=== PATIENT | male | born 1940 | race Caucasian/White ===

== ENCOUNTER 2016-11-22 19:43 | Emergency (ER) | payer MEDICARE, OTHER ==
[2016-11-22] MEDS ORDERED: SODIUM CHLORIDE 0.9% 1,000 ML IV STA (19:50)
--- NOTE | 2016-11-22 19:55 | ED ---
General Adult HPI - General Chief complaint: Chest Pain Stated complaint: chest & back pain Time Seen by Provider: 11/22/16 19:50 Source: patient, family, RN notes reviewed, old records reviewed Mode of arrival: ambulatory Limitations: no limitations - History of Present Illness Initial comments: This is a 76-year-old male VF reevaluation chest pain. Patient has central chest pain rating to his back assurance of breath. Patient has significant history of high blood pressure cholesterol and CVA. Patient does admit to shortness of breath no fevers cough or congestion. - Related Data Home Medications Medication Instructions Recorded Confirmed Cholecalciferol [Vitamin D3] 4,000 unit PO DAILY 05/10/16 11/22/16 Doxazosin [Cardura] 1 mg PO HS 05/10/16 11/22/16 Lisinopril [Zestril] 1.25 mg PO W/SUPPER 05/10/16 11/22/16 metFORMIN HCL [Glucophage Xr] 1,500 mg PO W/SUPPER 05/10/16 11/22/16 Pravastatin Sodium [Pravachol] 10 mg PO HS 11/22/16 11/22/16 Allergies Allergy/AdvReac Type Severity Reaction Status Date / Time No Known Allergies Allergy Verified 11/22/16 20:48 Review of Systems ROS Statement: Those systems with pertinent positive or pertinent negative responses have been documented in the HPI. ROS Other: All systems not noted in ROS Statement are negative. Past Medical History Past Medical History: Cancer, Diabetes Mellitus Additional Past Medical History / Comment(s): Gall stones,Enlarged prostate, basal cell carcinoma top of head History of Any Multi-Drug Resistant Organisms: None Reported Past Surgical History: Orthopedic Surgery Additional Past Surgical History / Comment(s): nicole carpel tunnel,heel spur, basal cell removed from scalp, back sx, choley Past Anesthesia/Blood Transfusion Reactions: No Reported Reaction Past Psychological History: No Psychological Hx Reported Smoking Status: Former smoker Past Alcohol Use History: Occasional Additional Past Alcohol Use History / Comment(s): quit smoking ,smoked for approx 30yrs 1ppd Past Drug Use History: None Reported - Past Family History Father History Unknown: Yes Mother Family Medical History: Diabetes Mellitus General Exam Limitations: no limitations General appearance: alert, in no apparent distress Head exam: Present: atraumatic, normocephalic, normal inspection Eye exam: Present: normal appearance, PERRL, EOMI. Absent: scleral icterus, conjunctival injection, periorbital swelling ENT exam: Present: normal exam, mucous membranes moist Neck exam: Present: normal inspection. Absent: tenderness, meningismus, lymphadenopathy Respiratory exam: Present: normal lung sounds bilaterally. Absent: respiratory distress, wheezes, rales, rhonchi, stridor Cardiovascular Exam: Present: regular rate, normal rhythm, normal heart sounds. Absent: systolic murmur, diastolic murmur, rubs, gallop, clicks GI/Abdominal exam: Present: soft, normal bowel sounds. Absent: distended, tenderness, guarding, rebound, rigid Extremities exam: Present: normal inspection, full ROM, normal capillary refill. Absent: tenderness, pedal edema, joint swelling, calf tenderness Back exam: Present: normal inspection Neurological exam: Present: alert, oriented X3, CN II-XII intact Psychiatric exam: Present: normal affect, normal mood Skin exam: Present: warm, dry, intact, normal color. Absent: rash Course Vital Signs 11/22/16 19:45 Temperature 97 F L Pulse Rate 66 Respiratory 20 Rate Blood Pressure 194/83 O2 Sat by Pulse 97 Oximetry - Reevaluation(s) Reevaluation #1: 11/22/16 22:20 Patient at this time and throughout hospital stay has remained without pain EKG Findings - EKG Comments: EKG Findings:: EKG shows normal sinus rhythm at 60, [place] 178, QRS 80, QTC 408 Medical Decision Making - Medical Decision Making 70s and LDL chest pain, chest pressure that occurred after eating. This happened twice today, once when he woke up and then later on in the afternoon. Patient without pain throughout entire hospital stay EKG chest x-ray CTA and heart enzymes are all negative. Patient spoke at length regarding to understand the hospital and states that he would like to be discharged home. Again patient has no complaints of pain with - Lab Data Result diagrams: 11/22/16 20:00 11/22/16 20:00 Lab Results 11/22/16 11/22/16 11/22/16 Range/Units 20:00 20:00 20:00 WBC 7.4 (3.8-10.6) k/uL RBC 4.11 L (4.30-5.90) m/uL Hgb 14.0 (13.0-17.5) gm/dL Hct 42.9 (39.0-53.0) % MCV 104.3 H (80.0-100.0) fL MCH 34.0 (25.0-35.0) pg MCHC 32.6 (31.0-37.0) g/dL RDW 18.2 H (11.5-15.5) % Plt Count 236 (150-450) k/uL Neutrophils % (Manual) 60.0 % Lymphocytes % (Manual) 31.0 % Monocytes % (Manual) 5.0 % Eosinophils % (Manual) 4.0 % Neutrophils # (Manual) 4.4 (1.3-7.7) k/uL Lymphocytes # (Manual) 2.3 (1.0-4.8) k/uL Monocytes # (Manual) 0.4 (0-1.0) k/uL Eosinophils # (Manual) 0.3 (0-0.7) k/uL Nucleated RBCs 0 (0-0) /100 WBC Manual Slide Review Performed Large Platelets Present Polychromasia Present Hypochromasia Slight Anisocytosis Slight Macrocytosis Moderate PT (9.0-12.0) sec INR (<1.1) APTT (22.0-30.0) sec D-Dimer (<0.60) mg/L FEU Sodium 139 (137-145) mmol/L Potassium 4.5 (3.5-5.1) mmol/L Chloride 106 (98-107) mmol/L Carbon Dioxide 24 (22-30) mmol/L Anion Gap 9 mmol/L BUN 15 (9-20) mg/dL Creatinine 0.75 (0.66-1.25) mg/dL Est GFR (MDRD) Af Amer >60 (>60 ml/min/1.73 sqM) Est GFR (MDRD) Non-Af >60 (>60 ml/min/1.73 sqM) Glucose 159 H (74-99) mg/dL Calcium 9.6 (8.4-10.2) mg/dL Magnesium 2.0 (1.6-2.3) mg/dL Total Bilirubin 0.7 (0.2-1.3) mg/dL AST 32 (17-59) U/L ALT 33 (21-72) U/L Alkaline Phosphatase 46 (38-126) U/L Total Creatine Kinase 89 (55-170) U/L CK-MB (CK-2) 1.7 (0.0-2.4) ng/mL CK-MB (CK-2) Rel Index 1.9 Troponin I <0.012 (0.000-0.034) ng/mL NT-Pro-B Natriuret Pep pg/mL Total Protein 7.1 (6.3-8.2) g/dL Albumin 4.3 (3.5-5.0) g/dL Lipase 74 (23-300) U/L 11/22/16 11/22/16 Range/Units 20:00 20:00 WBC (3.8-10.6) k/uL RBC (4.30-5.90) m/uL Hgb (13.0-17.5) gm/dL Hct (39.0-53.0) % MCV (80.0-100.0) fL MCH (25.0-35.0) pg MCHC (31.0-37.0) g/dL RDW (11.5-15.5) % Plt Count (150-450) k/uL Neutrophils % (Manual) % Lymphocytes % (Manual) % Monocytes % (Manual) % Eosinophils % (Manual) % Neutrophils # (Manual) (1.3-7.7) k/uL Lymphocytes # (Manual) (1.0-4.8) k/uL Monocytes # (Manual) (0-1.0) k/uL Eosinophils # (Manual) (0-0.7) k/uL Nucleated RBCs (0-0) /100 WBC Manual Slide Review Large Platelets Polychromasia Hypochromasia Anisocytosis Macrocytosis PT 9.9 (9.0-12.0) sec INR 1.0 (<1.1) APTT 24.3 (22.0-30.0) sec D-Dimer 0.38 (<0.60) mg/L FEU Sodium (137-145) mmol/L Potassium (3.5-5.1) mmol/L Chloride (98-107) mmol/L Carbon Dioxide (22-30) mmol/L Anion Gap mmol/L BUN (9-20) mg/dL Creatinine (0.66-1.25) mg/dL Est GFR (MDRD) Af Amer (>60 ml/min/1.73 sqM) Est GFR (MDRD) Non-Af (>60 ml/min/1.73 sqM) Glucose (74-99) mg/dL Calcium (8.4-10.2) mg/dL Magnesium (1.6-2.3) mg/dL Total Bilirubin (0.2-1.3) mg/dL AST (17-59) U/L ALT (21-72) U/L Alkaline Phosphatase (38-126) U/L Total Creatine Kinase (55-170) U/L CK-MB (CK-2) (0.0-2.4) ng/mL CK-MB (CK-2) Rel Index Troponin I (0.000-0.034) ng/mL NT-Pro-B Natriuret Pep 348 pg/mL Total Protein (6.3-8.2) g/dL Albumin (3.5-5.0) g/dL Lipase (23-300) U/L - Radiology Data Radiology results: report reviewed (Chest x-ray and CT negative for acute disease), image reviewed Disposition Clinical Impression: Atypical chest pain Disposition: HOME SELF-CARE Condition: Good Instructions: Chest Pain (ED) Referrals: Dayana Holguin MD [Primary Care Provider] - 1-2 days
[2016-11-22 20:18] LABS: Anisocytosis Slight; CH 34.3; HCT 42.9 % (39.0-53.0); HDW 3.34; Hypochromasia Slight; MCHC 32.6 g/dL (31.0-37.0); MCV 104.3 fL (80.0-100.0); Macrocytosis Moderate; RBC 4.11 m/uL (4.30-5.90); RDW 18.2 % (11.5-15.5); WBC 7.4 k/uL (3.8-10.6); WBC (Perox) 7.42
[2016-11-22 20:28] LABS: ALT 33 U/L (21-72); AST 32 U/L (17-59); Alkaline Phosphatase 46 U/L (38-126); Anion Gap 9 mmol/L; Blood Urea Nitrogen 15 mg/dL (9-20); Calcium 9.6 mg/dL (8.4-10.2); Carbon Dioxide 24 mmol/L (22-30); Chloride 106 mmol/L (98-107); Glucose 159 mg/dL (74-99); Non-African American GFR(MDRD) >60 (>60 ml/min/1.73 sqM); Potassium 4.5 mmol/L (3.5-5.1); Sodium 139 mmol/L (137-145); Total Bilirubin 0.7 mg/dL (0.2-1.3); Total Protein 7.1 g/dL (6.3-8.2)
[2016-11-22 20:30] LABS: Partial Thromboplastin Time 24.3 sec (22.0-30.0); Prothrombin Time 9.9 sec (9.0-12.0)
[2016-11-22 20:39] LABS: Creatine Kinase 89 U/L (55-170)
--- NOTE | 2016-11-22 20:44 | XR ---
EXAMINATION TYPE: XR chest 2V DATE OF EXAM: 11/22/2016 8:35 PM HISTORY: Shortness of breath. COMPARISON: 08/08/2013 TECHNIQUE: Single view of the chest is submitted. FINDINGS: Demonstrated are scattered senescent parenchymal change. There is no evidence for focal infiltrate. The heart is stable. Hilar and mediastinal structures are within normal limits. Degenerative changes are seen of the dorsal spine. IMPRESSION: 1. Chronic changes without evidence for acute pulmonary disease.
[2016-11-22 20:46] LABS: Add Differential Manual Differential
[2016-11-22 20:48] LABS: Nucleated Red Blood Cells 0 /100 WBC (0-0); Total Cells Counted 100
[2016-11-22 20:49] LABS: Large Platelets Present; Manual Review Performed; Polychromasia Present
[2016-11-22 20:50] LABS: Creatine Kinase MB 1.7 ng/mL (0.0-2.4); Troponin I <0.012 ng/mL (0.000-0.034)
[2016-11-22] MEDS ORDERED: RX INFO: IV CONTRAST WAS GIVEN 1 EACH MISC MISCELLANE PRN (21:28)
--- NOTE | 2016-11-22 22:00 | CT ---
EXAMINATION TYPE: CT angio chest DATE OF EXAM: 11/22/2016 9:54 PM COMPARISON: NONE HISTORY: Chest and upper back pain CT DLP: 483 mGycm CONTRAST: CT chest with contrast and 3D reconstruction with MIP imaging is performed with IV Contrast, patient injected with 100 mL of Omnipaque 350. Contrast-enhanced CT of the chest was performed through the course of the pulmonary arteries with og g and mediastinal window settings submitted. 3D reconstruction with MIP imaging was also performed. PULMONARY ARTERIES: The pulmonary arteries and their major tributaries are patent. I do not see atiya dence for sizable filling defect to suggest pulmonary embolic process. LUNGS: The lungs are clear and free of infiltrate. No evidence for atelectasis. No pulmonary nodule or mass is detected. No pleural effusion. MEDIASTINUM: Thoracic aorta is of normal caliber . The heart is not enlarged. No evidence for media stinal mass. No mediastinal lymph nodes greater than 1cm. HILAR STRUCTURES: No evidence for mass. No hilar lymph nodes greater than 1 cm. UPPER ABDOMEN: No significant abnormality is seen. IMPRESSION: 1. No evidence for Pulmonary embolism at this time.
[2016-11-22 22:45] VITALS: PULSE 62; RESP 18
[2016-11-22 23:11] VITALS: BP 162/79; TEMP 98.8
== END 2016-11-22 23:00 | disposition home or self-care (01) ==
LOC: EC 19:43
DX: M79.89 Other specified soft tissue disorders (principal); R06.02 Shortness of breath; E11.9 Type 2 diabetes mellitus without complications; Z85.828 Personal history of other malignant neoplasm of skin; Z87.891 Personal history of nicotine dependence; Z79.84 Long term (current) use of oral hypoglycemic drugs; Z79.899 Other long term (current) drug therapy
CPT/HCPCS: 36415; 93005; 85379; 83880; 80053; 82550; 82553; 83690; 83735; 84484; 85025; 85610; 85730; 71020; 71275; 99285; Q9967

== ENCOUNTER → 2016-12-05 | Outpatient (CLI) | payer MEDICARE, OTHER ==
--- NOTE | 2016-12-05 17:41 | US ---
EXAMINATION TYPE: US carotid duplex BILAT DATE OF EXAM: 12/05/2016 3:06 PM COMPARISON: NONE CLINICAL HISTORY: K22.4 ESOPH SPASM,R09.89 CAROTID BRUIT,E66.9 OBESITY,I10 HTN. No HTN. No history o f TIA EXAM MEASUREMENTS: RIGHT: Peak Systolic Velocity (PSV) cm/sec ----- Right CCA: 57.2 ----- Right ICA: 136.6 ----- Right ECA: 206.0 ICA/CCA ratio: 2.4 RIGHT: End Diastole cm/sec ----- Right CCA: 14.5 ----- Right ICA: 23.6 ----- Right ECA: 38.7 LEFT: Peak Systolic Velocity (PSV) cm/sec ----- Left CCA: 162.5 ----- Left ICA: 148.9 ----- Left ECA: 321.6 ICA/CCA ratio: 0.9 LEFT: End Diastole cm/sec ----- Left CCA: 36.5 ----- Left ICA: 36.6 ----- Left ECA: 22.2 VERTEBRALS (direction of flow): Right Vertebral: Antegrade Left Vertebral: Retrograde Plaque seen in bilateral bulbs, CCA and extending into the ICA and ECA. Elevated velocities in right Prox ICA and right ECA. Elevated velocities in seen in left CCA, ICA and ECA. Bilateral wall thick ening. Significant stenosis seen in right CCA. IMPRESSION: 1. Bilateral plaque as noted above. 2. 50-69% stenosis right ICA. 3. No hemodynamically significant stenosis left internal carotid artery. Criteria for Assigning % of Stenosis / Diameter reduction (Estimation based on the indirect measurements of the internal carotid artery velocities (ICA PSV). 1. Normal (no stenosis)=ICA PSV < 125 cm/s: ratio < 2.0: ICA EDV<40 cm/s. 2. Less than 50% stenosis=ICA PSV < 125 cm/s: ratio < 2.0: ICA EDV<40 cm/s. 3. 50 to 69% stenosis=ICA PSV of 125 to 230 cm/s: ration 2.0 ? 4.0: ICA EDV 40-100 cm/s. 4. Greater than 70% stenosis to near occlusion= ICA PSV > 230 cm/s: ratio > 4.0: ICA EDV > 100 cm/s. 5. Near occlusion= ICA PSV velocities may be low or undetectable: variable ratio and ICA EDV. 6. Total occlusion=unable to detect flow.
== END | disposition home or self-care (01) ==
LOC: RADUSWWP 14:16
PROVIDERS: ATTEND Family Medicine
DX: I65.23 Occlusion and stenosis of bilateral carotid arteries (principal); K22.4 Dyskinesia of esophagus; I10 Essential (primary) hypertension; E11.9 Type 2 diabetes mellitus without complications; E66.9 Obesity, unspecified; Z68.30 Body mass index [BMI] 30.0-30.9, adult
CPT/HCPCS: 93880

== ENCOUNTER → 2017-11-27 | Outpatient (CLI) | payer MEDICARE, OTHER ==
--- NOTE | 2017-11-28 08:23 | US ---
EXAMINATION TYPE: US carotid duplex BILAT DATE OF EXAM: 11/27/2017 COMPARISON: US 2017 CLINICAL HISTORY: I65.21 Occlusion and stenosis right carotid artery. Follow up EXAM MEASUREMENTS: RIGHT: Peak Systolic Velocity (PSV) cm/sec ----- Right CCA: 46.0 ----- Right ICA: 151.7 ----- Right ECA: 144.7 ICA/CCA ratio: 3.3 RIGHT: End Diastole cm/sec ----- Right CCA: 11.1 ----- Right ICA: 32.0 ----- Right ECA: 17.1 LEFT: Peak Systolic Velocity (PSV) cm/sec ----- Left CCA: 110.7 ----- Left ICA: 120.5 ----- Left ECA: 92.5 ICA/CCA ratio: 1.1 LEFT: End Diastole cm/sec ----- Left CCA: 23.4 ----- Left ICA: 34.7 ----- Left ECA: 0.0 VERTEBRALS (direction of flow): Right Vertebral: Antegrade Left Vertebral: Retrograde, to and fro flow Rhythm: Normal Bilateral intimal thickening, plaque throughout bilateral carotids, elevated velocities: right proxim al ICA and right mid ECA, right ICA/CCA ratio 3.3 = 50 to 69% stenosis. IMPRESSION: 1. Atheromatous plaquing present bilaterally. Based on velocities the right internal carotid artery h as an estimated stenosis between 50 and 69%. Stenosis of the left internal carotid artery is approach ing 50%. 2. There is some to and fro motion within the left vertebral artery flow. Some retrograde flow was do cumented. Criteria for Assigning % of Stenosis / Diameter reduction (Estimation based on the indirect measurements of the internal carotid artery velocities (ICA PSV). 1. Normal (no stenosis)=ICA PSV < 125 cm/s: ratio < 2.0: ICA EDV<40 cm/s. 2. Less than 50% stenosis=ICA PSV < 125 cm/s: ratio < 2.0: ICA EDV<40 cm/s. 3. 50 to 69% stenosis=ICA PSV of 125 to 230 cm/s: ration 2.0 ? 4.0: ICA EDV 40-100 cm/s. 4. Greater than 70% stenosis to near occlusion= ICA PSV > 230 cm/s: ratio > 4.0: ICA EDV > 100 cm/s. 5. Near occlusion= ICA PSV velocities may be low or undetectable: variable ratio and ICA EDV. 6. Total occlusion=unable to detect flow.
== END | disposition home or self-care (01) ==
LOC: RADUSWWP 15:54
PROVIDERS: ATTEND Family Medicine
DX: I65.23 Occlusion and stenosis of bilateral carotid arteries (principal)
CPT/HCPCS: 93880

== ENCOUNTER 2018-03-25 15:50 | Emergency (ER) | payer MEDICARE, OTHER ==
[2018-03-25] MEDS ORDERED: ONDANSETRON 4 MG/2 ML VIAL IVP STA (16:10)
[2018-03-25] MEDS ORDERED: MORPHINE SULFATE 4 MG/ML SYRINGE IV STA ×2 (16:10→18:36)
[2018-03-25] MEDS ORDERED: SODIUM CHLORIDE 0.9% 500 ML IV STA (16:12)
[2018-03-25] MEDS ORDERED: SODIUM CHLORIDE 0.9% 1,000 ML IV STA (16:13)
--- NOTE | 2018-03-25 16:17 | ED ---
Abdominal Pain HPI - General Chief Complaint: Abdominal Pain Stated Complaint: back & abdominal pain Time Seen by Provider: 03/25/18 16:04 Source: patient Mode of arrival: wheelchair Limitations: no limitations - History of Present Illness Initial Comments: This 78-year-old white male presents with a complaint of some left flank pain which came on at approximately 10 AM today. He also is having some pain in the suprapubic region. He states that the pain is fairly severe in nature. He has had some nausea but no vomiting diarrhea constipation. He denies any fevers or chills. He states that he does have some hesitancy with urination which is essentially normal for him due to his benign prostatic hypertrophy. He does refuse any frequency urgency dysuria or hematuria. He does have a history of kidney stones remotely and this feels somewhat similar. He tried some Zantac without any relief. No other complaints or modifying factors. - Related Data Home Medications Medication Instructions Recorded Confirmed Cholecalciferol [Vitamin D3] 4,000 unit PO HS 05/10/16 03/25/18 Doxazosin [Cardura] 1 mg PO HS 05/10/16 03/25/18 Lisinopril [Zestril] 1.25 mg PO W/SUPPER 05/10/16 03/25/18 metFORMIN HCL [Glucophage Xr] 1,500 mg PO W/SUPPER 05/10/16 03/25/18 Pravastatin Sodium [Pravachol] 10 mg PO HS 11/22/16 03/25/18 Previous Rx's Medication Instructions Recorded Hydrocodone/Acetaminophen [Clyde 1 - 2 each PO Q4HR PRN #20 tab 03/25/18 5-325] Ondansetron [Zofran ODT] 8 mg PO Q8HR PRN #12 tab 03/25/18 Allergies Allergy/AdvReac Type Severity Reaction Status Date / Time No Known Allergies Allergy Verified 03/25/18 16:27 Review of Systems ROS Statement: Those systems with pertinent positive or pertinent negative responses have been documented in the HPI. ROS Other: All systems not noted in ROS Statement are negative. Past Medical History Past Medical History: Cancer, Diabetes Mellitus Additional Past Medical History / Comment(s): Gall stones,Enlarged prostate, basal cell carcinoma top of head History of Any Multi-Drug Resistant Organisms: None Reported Past Surgical History: Orthopedic Surgery Additional Past Surgical History / Comment(s): nicole carpel tunnel,heel spur, basal cell removed from scalp, back sx, choley Past Anesthesia/Blood Transfusion Reactions: No Reported Reaction Past Psychological History: No Psychological Hx Reported Smoking Status: Former smoker Past Alcohol Use History: Occasional Past Drug Use History: None Reported - Past Family History Father History Unknown: Yes Mother Family Medical History: Diabetes Mellitus General Exam - General Exam Comments Initial Comments: GENERAL: The patient is well nourished and well hydrated. VITAL SIGNS: Heart rate, blood pressure, respiratory rate reviewed as recorded in nurse's notes. EYES: Pupils are round and reactive. Extraocular movements are intact. No conjunctival / lid redness or swelling. ENT: No external evidence of injury, swelling, or ecchymosis. Airway is patent. Throat is clear. NECK: Nontender. No swelling or evidence of injury. No subcutaneous emphysema. Trachea is midline. No thyroid mass. HEART: Regular rate and rhythm. Good peripheral pulses. LUNGS/CHEST: Breath sounds clear and equal bilaterally. No rales, rhonchi, or wheezes. No ecchymosis, subcutaneous emphysema, or tenderness. ABDOMEN: There is some tenderness noted into the left flank region primarily. There is mild tenderness into the suprapubic area. There is no abdominal distention. No palpable masses or organomegaly. No peritoneal signs. No abdominal wall swelling or ecchymosis. EXTREMITIES: No extremity tenderness. Normal muscle tone and function. No thoracolumbar tenderness. NEUROLOGIC: Sensation is grossly intact. Cranial nerve exam reveals face is symmetrical, tongue is midline, speech is clear. SKIN: No abrasions or ecchymosis is noted. No induration or masses noted. PSYCHIATRIC: Alert and oriented. Appropriate behavior and judgment. Limitations: no limitations Course Vital Signs 03/25/18 03/25/18 03/25/18 15:53 16:55 17:21 Temperature 97.4 F L Pulse Rate 66 71 65 Respiratory 22 18 18 Rate Blood Pressure 144/69 174/83 153/65 O2 Sat by Pulse 98 96 98 Oximetry Medical Decision Making - Medical Decision Making The patient was seen and examined. All diagnostics are reviewed. He does have an IV established and received some fluid hydration. The receives for morphine and 8 of Zofran intravenously. The urinalysis and laboratory analysis are essentially unremarkable. The computed tomography scan of the abdomen and pelvis does show 5 mm left proximal ureteral stone with hydronephrosis. There is additional stones in the left kidney. The patient is feeling improved on recheck. He is still in a degree of pain and will be given additional morphine. This felt as though he stable for outpatient treatment. He was informed that his prostate is enlarged as well but he states that he was aware of this. He's never followed up with urology and he will be given the number to Dr. Almendarez so that he can follow-up in regards to his prostate as well as the kidney stones. - Lab Data Result diagrams: 03/25/18 16:46 03/25/18 16:46 Lab Results 03/25/18 03/25/18 03/25/18 Range/Units 16:46 16:46 16:46 WBC 11.3 H (3.8-10.6) k/uL RBC 4.21 L (4.30-5.90) m/uL Hgb 13.6 (13.0-17.5) gm/dL Hct 42.6 (39.0-53.0) % MCV 101.2 H (80.0-100.0) fL MCH 32.3 (25.0-35.0) pg MCHC 31.9 (31.0-37.0) g/dL RDW 17.7 H (11.5-15.5) % Plt Count 242 (150-450) k/uL Neutrophils % 77 % Lymphocytes % 14 % Monocytes % 5 % Eosinophils % 1 % Basophils % 1 % Neutrophils # 8.8 H (1.3-7.7) k/uL Lymphocytes # 1.6 (1.0-4.8) k/uL Monocytes # 0.6 (0-1.0) k/uL Eosinophils # 0.1 (0-0.7) k/uL Basophils # 0.1 (0-0.2) k/uL Anisocytosis Slight Macrocytosis Slight PT 9.6 (9.0-12.0) sec INR 1.0 (<1.2) APTT 23.5 (22.0-30.0) sec Sodium 139 (137-145) mmol/L Potassium 4.5 (3.5-5.1) mmol/L Chloride 107 (98-107) mmol/L Carbon Dioxide 23 (22-30) mmol/L Anion Gap 9 mmol/L BUN 18 (9-20) mg/dL Creatinine 0.81 (0.66-1.25) mg/dL Est GFR (CKD-EPI)AfAm >90 (>60 ml/min/1.73 sqM) Est GFR (CKD-EPI)NonAf 85 (>60 ml/min/1.73 sqM) Glucose 161 H (74-99) mg/dL Calcium 9.5 (8.4-10.2) mg/dL Total Bilirubin 0.8 (0.2-1.3) mg/dL AST 29 (17-59) U/L ALT 42 (21-72) U/L Alkaline Phosphatase 47 (38-126) U/L Total Protein 6.6 (6.3-8.2) g/dL Albumin 4.3 (3.5-5.0) g/dL Urine Color Urine Appearance (Clear) Urine pH (5.0-8.0) Ur Specific [place] (1.001-1.035) Urine Protein (Negative) Urine Glucose (UA) (Negative) Urine Ketones (Negative) Urine Blood (Negative) Urine Nitrite (Negative) Urine Bilirubin (Negative) Urine Urobilinogen (<2.0) mg/dL Ur Leukocyte Esterase (Negative) Urine WBC (0-5) /hpf Ur Squamous Epith Cells (0-4) /hpf Amorphous Sediment (None) /hpf Urine Mucus (None) /hpf 03/25/18 Range/Units 17:21 WBC (3.8-10.6) k/uL RBC (4.30-5.90) m/uL Hgb (13.0-17.5) gm/dL Hct (39.0-53.0) % MCV (80.0-100.0) fL MCH (25.0-35.0) pg MCHC (31.0-37.0) g/dL RDW (11.5-15.5) % Plt Count (150-450) k/uL Neutrophils % % Lymphocytes % % Monocytes % % Eosinophils % % Basophils % % Neutrophils # (1.3-7.7) k/uL Lymphocytes # (1.0-4.8) k/uL Monocytes # (0-1.0) k/uL Eosinophils # (0-0.7) k/uL Basophils # (0-0.2) k/uL Anisocytosis Macrocytosis PT (9.0-12.0) sec INR (<1.2) APTT (22.0-30.0) sec Sodium (137-145) mmol/L Potassium (3.5-5.1) mmol/L Chloride (98-107) mmol/L Carbon Dioxide (22-30) mmol/L Anion Gap mmol/L BUN (9-20) mg/dL Creatinine (0.66-1.25) mg/dL Est GFR (CKD-EPI)AfAm (>60 ml/min/1.73 sqM) Est GFR (CKD-EPI)NonAf (>60 ml/min/1.73 sqM) Glucose (74-99) mg/dL Calcium (8.4-10.2) mg/dL Total Bilirubin (0.2-1.3) mg/dL AST (17-59) U/L ALT (21-72) U/L Alkaline Phosphatase (38-126) U/L Total Protein (6.3-8.2) g/dL Albumin (3.5-5.0) g/dL Urine Color Light Yellow Urine Appearance Clear (Clear) Urine pH 5.0 (5.0-8.0) Ur Specific [place] 1.010 (1.001-1.035) Urine Protein Negative (Negative) Urine Glucose (UA) Negative (Negative) Urine Ketones 1+ H (Negative) Urine Blood Trace H (Negative) Urine Nitrite Negative (Negative) Urine Bilirubin Negative (Negative) Urine Urobilinogen <2.0 (<2.0) mg/dL Ur Leukocyte Esterase Negative (Negative) Urine WBC <1 (0-5) /hpf Ur Squamous Epith Cells 1 (0-4) /hpf Amorphous Sediment Rare H (None) /hpf Urine Mucus Rare H (None) /hpf Disposition Clinical Impression: Abdominal pain, Left flank pain, Nausea, Left ureteral stone, Hypertension, Hydronephrosis, left, Prostatic hypertrophy Disposition: HOME SELF-CARE Condition: Good Instructions: Kidney Stones (ED), Hypertension (ED), Benign Prostatic Hypertrophy (ED) Prescriptions: Hydrocodone/Acetaminophen [Clyde 5-325] 1 - 2 each PO Q4HR PRN #20 tab PRN Reason: Pain Ondansetron [Zofran ODT] 8 mg PO Q8HR PRN #12 tab PRN Reason: Nausea Is patient prescribed a controlled substance at d/c from ED?: Yes When asked, does pt state using other controlled substances?: No If prescribed controlled substance>3 days was MAPS reviewed?: Prescribed <3 Days Referrals: Dayana Holguin MD [Primary Care Provider] - 1-2 days Arun Almendarez MD [STAFF PHYSICIAN] - As Soon As Possible Time of Disposition: 18:30
[2018-03-25 16:57] VITALS: RESP 18
[2018-03-25 17:07] LABS: Anisocytosis Slight; Basophils # (A) 0.1 k/uL (0-0.2); Basophils % (A) 1 %; Eosinophils # (A) 0.1 k/uL (0-0.7); Eosinophils % (A) 1 %; HCT 42.6 % (39.0-53.0); HGB 13.6 gm/dL (13.0-17.5); Lymphocytes # (A) 1.6 k/uL (1.0-4.8); Lymphocytes % (A) 14 %; MCH 32.3 pg (25.0-35.0); MCHC 31.9 g/dL (31.0-37.0); MCV 101.2 fL (80.0-100.0); Macrocytosis Slight; Mean Platelet Volume 8.6; Monocytes # (A) 0.6 k/uL (0-1.0); Monocytes % (A) 5 %; Neutrophils # (A) 8.8 k/uL (1.3-7.7); Neutrophils % (A) 77 %; Platelet Count 242 k/uL (150-450); RBC 4.21 m/uL (4.30-5.90); RDW 17.7 % (11.5-15.5); WBC 11.3 k/uL (3.8-10.6)
[2018-03-25 17:14] LABS: Partial Thromboplastin Time 23.5 sec (22.0-30.0); Prothrombin Time 9.6 sec (9.0-12.0)
[2018-03-25 17:16] LABS: ALT 42 U/L (21-72); AST 29 U/L (17-59); Albumin 4.3 g/dL (3.5-5.0); Alkaline Phosphatase 47 U/L (38-126); Anion Gap 9 mmol/L; Blood Urea Nitrogen 18 mg/dL (9-20); Calcium 9.5 mg/dL (8.4-10.2); Carbon Dioxide 23 mmol/L (22-30); Chloride 107 mmol/L (98-107); Glucose 161 mg/dL (74-99); Potassium 4.5 mmol/L (3.5-5.1); Sodium 139 mmol/L (137-145); Total Bilirubin 0.8 mg/dL (0.2-1.3); Total Protein 6.6 g/dL (6.3-8.2)
--- NOTE | 2018-03-25 18:03 | CT ---
EXAMINATION TYPE: CT abdomen pelvis wo con DATE OF EXAM: 03/25/2018 COMPARISON: None HISTORY: Lower back/abdominal pain CT DLP: 689.5 mGycm Automated exposure control for dose reduction was used. TECHNIQUE: Helical acquisition of images was performed from the lung bases through the pelvis. FINDINGS: There is some subsegmental atelectasis at the posterior lung bases. There is no pleural effusion. Liver shows no focal defect. There are clips from cholecystectomy. Spleen appears normal. There is no pancreatic mass. There is no adrenal mass. Kidneys of normal size and contour. There is left-sided hydronephrosis. The re is 5 mm calculus in the proximal left ureter. There is left-sided perinephric edema. There is no h ydronephrosis on the right side. There are is tiny calculi in the posterior left kidney. The right ki dney shows no calculi. Abdominal aorta is atheromatous. There is no retroperitoneal adenopathy. Appen petar appears normal. There is no ascites. Bladder distends smoothly. There is calcification in the dependent urinary bladd er. There is prosthetic calcification. Prostate is enlarged and measures 6.1 cm. There is no pelvic l ymphadenopathy. There are spondylotic changes in the lumbar spine. There is no compression fracture. IMPRESSION: OBSTRUCTING CALCULUS IN THE PROXIMAL LEFT URETER WITH HYDRONEPHROSIS. TINY LEFT RENAL CALCULI. ATHERO SCLEROTIC VASCULAR DISEASE. ENLARGED PROSTATE. SMALL BLADDER CALCULI.
[2018-03-25 18:16] LABS: Amorphous Sediment,Urine Rare /hpf; Appearance,Urine Clear (Clear); Bilirubin,Urine Negative (Negative); Blood,Urine Trace (Negative); Color,Urine Light Yellow; Glucose,Urine (UA) Negative (Negative); Ketones,Urine 1+ (Negative); Leukocyte Esterase,Urine Negative (Negative); Mucus,Urine Rare /hpf; Nitrite,Urine Negative (Negative); Protein,Urine Negative (Negative); Squamous Epithelial Cell,Urine 1 /hpf (0-4); Urobilinogen,Urine <2.0 mg/dL (<2.0); WBC,Urine <1 /hpf (0-5)
[2018-03-25 18:51] VITALS: PULSE 70; TEMP 97.2
[2018-03-25 18:52] VITALS: BP 137/60
== END 2018-03-25 19:06 | disposition home or self-care (01) ==
LOC: EC 15:50
DX: N13.2 Hydronephrosis with renal and ureteral calculous obstruction (principal); N40.0 Benign prostatic hyperplasia without lower urinary tract symptoms; I10 Essential (primary) hypertension; E11.9 Type 2 diabetes mellitus without complications; Z87.442 Personal history of urinary calculi; Z85.828 Personal history of other malignant neoplasm of skin; Z87.891 Personal history of nicotine dependence; Z79.84 Long term (current) use of oral hypoglycemic drugs; Z79.899 Other long term (current) drug therapy
CPT/HCPCS: 36415; 80053; 85025; 85610; 85730; 81001; 74176; 99284; 96374; 96375; 96376; 96361; J2270; J2405

== ENCOUNTER → 2018-03-28 | Outpatient (CLI) | payer MEDICARE, OTHER ==
--- NOTE | 2018-03-28 10:49 | XR ---
EXAMINATION TYPE: XR abdomen 1V DATE OF EXAM: 03/28/2018 COMPARISON: 03/25/2018 HISTORY: Follow-up left renal stone TECHNIQUE: One view abdominal series FINDINGS: The osseous structures are intact. The bowel gas pattern is nonspecific. Hypertrophic changes of the spine noted. Previous surgery involving the right upper quadrant. There is a 4 mm calcification overlying the left 12th rib likely related to a renal calculus. Ossific ations the pelvis appear to be vascular. IMPRESSION: 1. Suspect a left renal pelvic calcification or proximal ureteral calcification measuring approximate ly 4 to 5 mm. This corresponds to the renal calculus noted. The proximal to mid ureteral calculus pre viously reported by CT is not identified with certainty by standard x-ray.
== END | disposition home or self-care (01) ==
LOC: RADXRMAIN 10:19
PROVIDERS: ATTEND Urology
DX: N20.1 Calculus of ureter (principal)
CPT/HCPCS: 74018

== ENCOUNTER 2018-04-01 08:14 | Day surgery (SDC) | payer MEDICARE, OTHER ==
[2018-03-29 09:59] VITALS: BMI 29.7
--- NOTE | 2018-03-31 18:29 | P.GSHP ---
History of Present Illness H&P Date: 03/31/18 78 yo male with a history of stones. Has a 5 mm left mid ureteral stone on the left. He comes eswl left - Constitutional Constitutional: Reports chronic pain - EENT Ears: bilateral: decreased hearing - Endocrine Endocrine: Reports high blood sugars Past Medical History Past Medical History: Cancer, Diabetes Mellitus, Osteoarthritis (OA), Prostate Disorder Additional Past Medical History / Comment(s): Enlarged prostate, basal cell carcinoma top of head, kidney stones History of Any Multi-Drug Resistant Organisms: None Reported Past Surgical History: Back Surgery, Cholecystectomy, Orthopedic Surgery Additional Past Surgical History / Comment(s): nicole carpel tunnel,heel spur, basal cell removed from scalp Past Anesthesia/Blood Transfusion Reactions: No Reported Reaction Smoking Status: Former smoker - Past Family History Father History Unknown: Yes Mother Family Medical History: Diabetes Mellitus Medications and Allergies Home Medications Medication Instructions Recorded Confirmed Type Cholecalciferol [Vitamin D3] 4,000 unit PO HS 05/10/16 03/29/18 History Doxazosin [Cardura] 1 mg PO HS 05/10/16 03/29/18 History Lisinopril [Zestril] 1.25 mg PO W/SUPPER 05/10/16 03/29/18 History metFORMIN HCL [Glucophage Xr] 1,500 mg PO W/SUPPER 05/10/16 03/29/18 History Pravastatin Sodium [Pravachol] 10 mg PO HS 11/22/16 03/29/18 History Hydrocodone/Acetaminophen [[place] 1 - 2 each PO Q4HR PRN #20 tab 03/25/18 Rx 5-325] Ondansetron [Zofran ODT] 8 mg PO Q8HR PRN #12 tab 03/25/18 03/29/18 Rx Allergies Allergy/AdvReac Type Severity Reaction Status Date / Time tamsulosin [From Flomax] Allergy Rash/Hives Verified 03/29/18 09:37 Surgical - Exam - General well developed, well nourished, no distress - Eyes PERRL - ENT decreased hearing - Neck no masses, trachea midline - Respiratory normal expansion, normal respiratory effort - Cardiovascular Rhythm: regular - Abdomen Abdomen: soft, non tender - Genitourinary normal penis with no external lesions, testicles present - Integumentary no rash, no growths - Neurologic normal coordination, normal sensation - Musculoskeletal normal gait, normal posture - Psychiatric oriented to time, oriented to person, oriented to place, speech is normal, memory intact Assessment and Plan Assessment: Impression:Left ureteral stone Plan: ESWL Left
[~2018-04-01 08:14] MED LIST: Pre Op ABX Message 1 EACH MISC MISCELLANE ONE
--- NOTE | 2018-04-01 09:03 | XR ---
EXAMINATION TYPE: XR KUB DATE OF EXAM: 04/01/2018 COMPARISON: 05/13/2016 INDICATION: Left-sided kidney stones preop TECHNIQUE: Single view abdomen supine view FINDINGS: There is a nonspecific bowel gas pattern. Psoas margins are normal. No organomegaly is present. Cholecystectomy clips in right upper quadrant. There appears be a faint oval large calcific type density over the mid left kidney measuring 2.3 x 3. 5 cm. Couple of additional smaller calcifications may be in the region of the left renal pelvis measu ring 0.3 and 0.6 cm in size. IMPRESSION: 1. Left renal calcifications.
[2018-04-01] MEDS ORDERED: LACTATED RINGERS 1,000 ML IV ONE (09:09)
[2018-04-01] MEDS ORDERED: LIDOCAINE 1% 20 ML VIAL (10MG/ML) FOR IV START INTRADERMA ONE (09:10)
[2018-04-01 09:17] VITALS: RESP 16; TEMP 98.4
[2018-04-01 09:26] LABS: Glucose,Whole Blood 181 mg/dL (75-99)
[2018-04-01] MEDS ORDERED: fentaNYL (PF) 50 MCG/ML 2 ML AMP ONE (09:43)
[2018-04-01] MEDS ORDERED: PROPOFOL 10 MG/ML 20 ML VIAL IV ONE (09:43)
[2018-04-01] MEDS ORDERED: PHENYLEPHRINE-0.9% NACL SYG 1 MG/10 ML SYRINGE ONE (09:43)
[2018-04-01] MEDS ORDERED: KETAMINE 10 MG/ML 20 ML VIAL ONE (09:43)
[2018-04-01] MEDS ORDERED: MIDAZOLAM 2 MG/2 ML VIAL ONE (09:43)
--- NOTE | 2018-04-01 10:31 | P.OP ---
Date of Procedure: 04/01/18 Preoperative Diagnosis: left renal and ureteral stones Postoperative Diagnosis: Same Procedure(s) Performed: Extracorporeal shockwave lithotripsy left, 2500 shocks at energy level IV Anesthesia: MAC Surgeon: Shabbir Peña Pathology: none sent Condition: stable Disposition: PACU Indications for Procedure: The patient is 78 with a 5 mm upper ureteral and 2 renal stones on the left side he comes for shockwave lithotripsy Description of Procedure: Patient brought the operating suite. He's placed in the lithotomy table in the supine position. The 2 renal stones are seen. A total of 50 shocks are administered at energy level stone to fracture them. We move down to both SI joint and see a stone. Thousand shocks at energy level IV Mr. The stone fracture nicely. Then of the procedure the patient awake and returned recovery in good condition. Tell procedure well be discharged home upon recovery.
[2018-04-01 11:33] VITALS: BP 102/64; PULSE 85
== END 2018-04-01 11:57 | disposition home or self-care (01) ==
LOC: ORWHC2ENDO 08:14
PROVIDERS: ATTEND Urology
DX: N20.2 Calculus of kidney with calculus of ureter (principal); N40.0 Benign prostatic hyperplasia without lower urinary tract symptoms; E11.9 Type 2 diabetes mellitus without complications; Z87.442 Personal history of urinary calculi; Z87.891 Personal history of nicotine dependence; M19.90 Unspecified osteoarthritis, unspecified site; Z79.84 Long term (current) use of oral hypoglycemic drugs; Z79.899 Other long term (current) drug therapy
CPT/HCPCS: 74018; 50590; J2250; J3010; J2370; J2704

== ENCOUNTER → 2018-04-03 | Outpatient (CLI) | payer MEDICARE, OTHER ==
--- NOTE | 2018-04-03 12:26 | XR ---
EXAMINATION TYPE: XR KUB DATE OF EXAM: 04/03/2018 COMPARISON: 04/01/2018 HISTORY: Post lithotripsy TECHNIQUE: One view abdominal series FINDINGS: The osseous structures are intact. The bowel gas pattern is nonspecific. Hypertrophic and degenerati ve change of the spine. Surgical clips in the right upper quadrant. Vascular calcifications in the pe lvis. Oval calcification the right hemipelvis measuring 5 mm is stable. There appears be a faint oval large calcific type density over the mid left kidney measuring 2.3 x 3. 5 cm. Previously reported is not seen with certainty and today's exam. The 2 less than 5 mm smaller calcifications overlying the region of the left renal pelvis measuring 0 .3 and 0.6 cm in size are noted and are similar in appearance.. IMPRESSION: 1. 2 small less than 5 mm left upper abdominal calcifications likely in the region of the left renal pelvis appear to correspond to vascular calcifications on the recent CT scan. The ureteral calculus i s not seen with certainty on today's exam.
== END | disposition home or self-care (01) ==
LOC: RADXRMAIN 12:06
PROVIDERS: ATTEND Urology
DX: Z09 Encounter for follow-up examination after completed treatment for conditions other than malignant neoplasm (principal); R93.5 Abnormal findings on diagnostic imaging of other abdominal regions, including retroperitoneum; Z87.442 Personal history of urinary calculi
CPT/HCPCS: 74018

== ENCOUNTER → 2018-05-06 | Outpatient (CLI) | payer MEDICARE, OTHER ==
--- NOTE | 2018-05-06 11:14 | XR ---
Abdomen HISTORY: Status post lithotripsy, renal stones Frontal view of the abdomen on 2 images correlated to prior exam 04/03/2018, CT abdomen pelvis 03/25/20 18 Multiple calcifications are again noted within the pelvis. No pneumoperitoneum or bowel obstruction. Degenerative disc changes in the visualized spine. Surgical clips present right upper quadrant. IMPRESSION: Difficult to exclude distal ureteral calculus.
== END | disposition home or self-care (01) ==
LOC: RADXRMAIN 09:10
PROVIDERS: ATTEND Urology
DX: N20.2 Calculus of kidney with calculus of ureter (principal)
CPT/HCPCS: 74018

== ENCOUNTER → 2018-05-14 | Outpatient (CLI) | payer MEDICARE, OTHER ==
--- NOTE | 2018-05-15 01:53 | US ---
EXAMINATION TYPE: US carotid duplex BILAT DATE OF EXAM: 05/14/2018 COMPARISON: 11/27/2017 CLINICAL HISTORY: 78-year-old male not dramatic aortic valve disorder I65.21 bilateral carotid stenos is. TECHNIQUE: Carotid duplex ultrasound examination. Indirect Doppler criteria was utilized. FINDINGS: EXAM MEASUREMENTS: RIGHT: Peak Systolic Velocity (PSV) cm/sec ----- Right CCA: 62.5 ----- Right ICA: 164.8 ----- Right ECA: 132.0 ICA/CCA ratio: 2.6 RIGHT: End Diastole cm/sec ----- Right CCA: 16.2 ----- Right ICA: 36.7 ----- Right ECA: 19.9 LEFT: Peak Systolic Velocity (PSV) cm/sec ----- Left CCA: 141.2 ----- Left ICA: 221.9 ----- Left ECA: 269.2 ICA/CCA ratio: 1.6 LEFT: End Diastole cm/sec ----- Left CCA: 32.7 ----- Left ICA: 63.0 ----- Left ECA: 14.1 VERTEBRALS (direction of flow): Right Vertebral: Antegrade Left Vertebral: Retrograde Rhythm: Normal Extensive shadowing plaque noted throughout all vessels. Elevated velocities noted. Right ECA is demo nstrating reversed flow. Left Vert is retrograde, IMPRESSION: 1. Elevated velocities in the left greater than right ICA with measurements suggesting moderate, 50-6 9% stenosis. CTA can further evaluate. 2. Retrograde flow detected in the left vertebral artery. Findings can be seen in the setting of subc lavian steal. Clinically correlate. Criteria for Assigning % of Stenosis / Diameter reduction (Estimation based on the indirect measurements of the internal carotid artery velocities (ICA PSV). 1. Normal (no stenosis)=ICA PSV < 125 cm/s: ratio < 2.0: ICA EDV<40 cm/s. 2. Less than 50% stenosis=ICA PSV < 125 cm/s: ratio < 2.0: ICA EDV<40 cm/s. 3. 50 to 69% stenosis=ICA PSV of 125 to 230 cm/s: ration 2.0 ? 4.0: ICA EDV 40-100 cm/s. 4. Greater than 70% stenosis to near occlusion= ICA PSV > 230 cm/s: ratio > 4.0: ICA EDV > 100 cm/s. 5. Near occlusion= ICA PSV velocities may be low or undetectable: variable ratio and ICA EDV. 6. Total occlusion=unable to detect flow.
== END | disposition home or self-care (01) ==
LOC: RADUSWWP 16:11
PROVIDERS: ATTEND Family Medicine
DX: I65.21 Occlusion and stenosis of right carotid artery (principal); I77.89 Other specified disorders of arteries and arterioles; I35.8 Other nonrheumatic aortic valve disorders
CPT/HCPCS: 93880

== ENCOUNTER → 2018-06-12 | Outpatient (CLI) | payer MEDICARE, OTHER ==
[2018-06-12 16:17] LABS: Blood Urea Nitrogen 20 mg/dL (9-20)
--- NOTE | 2018-06-13 09:59 | CT ---
EXAMINATION TYPE: CT angio neck DATE OF EXAM: 06/12/2018 HISTORY: Bilateral occlusion and stenosis. COMPARISON: Ultrasound carotid arteries 05/14/2018 CT DLP: 313 mGycm. Automated Exposure Control for Dose Reduction was Utilized. TECHNIQUE: CTA scan of the neck is performed with IV Contrast, patient injected with 65ml mL of Isov ue 370, axial images are obtained, coronal and sagittal reformatted images are reviewed. Three-D danelle nstructed images are created on an independent workstation and reviewed. FINDINGS: Carotid/Vascular Structures: Carotid artery bifurcation calcification is present. Right carotid arteries: The distal right common carotid artery has a diameter of 1.4 mm. The proximal right internal carotid artery measures 2.0 mm. The mid normal-appearing internal carotid artery casie ures 4.9 mm. Left carotid arteries: Carotid artery bifurcation calcification is present. The proximal right international freight forwarder al carotid artery is narrowed measuring 1.7 mm. The internal carotid artery distal is 5.2 mm. There i s some narrowing of the distal left common carotid artery with a transverse dimension 3.0 mm distal t o this narrowing common carotid artery measures 6.0 mm. Three-D reconstructed images were performed separately on the ventricular computer by the [employer] t. 2-D MIPS imaging is performed. These may overestimate the stenosis somewhat given the extensive ca lcification present bilaterally. On visual inspection with the Three-D reconstructed images through the common and internal carotid ar teries, there appears to be a critical stenosis within the proximal left internal carotid artery. On the reconstructed images at the right carotid bifurcation a severe stenosis is present. 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 Other: Degenerative disc changes and spondylosis is through the cervical spine. Septal deviation to t he left is present. COMPARISON: Ultrasound estimates of narrowing appear to correlate better to visual inspection than th e mathematical cross-sectional narrowing. IMPRESSION: 1. Severe narrowing of the proximal right internal carotid artery greater than 70%. Severe Right comm on carotid artery distal stenosis is also present. 2. Severe to critical stenosis left internal carotid artery estimated between 60 and 70%. 3. Plaquing within the proximal left subclavian vein. This would correlate with the subclavian steal syndrome by ultrasound.
== END | disposition home or self-care (01) ==
LOC: RADCTMAIN 15:31
PROVIDERS: ATTEND Family Medicine
DX: I65.23 Occlusion and stenosis of bilateral carotid arteries (principal); I70.8 Atherosclerosis of other arteries
CPT/HCPCS: 82565; 84520; 70498; 36415; Q9967

== ENCOUNTER → 2018-07-15 | Outpatient (CLI) | payer MEDICARE, OTHER ==
[2018-07-15 08:36] LABS: Anisocytosis Slight; HCT 45.6 % (39.0-53.0); HGB 14.8 gm/dL (13.0-17.5); Hypochromasia Slight; MCHC 32.5 g/dL (31.0-37.0); MCV 104.4 fL (80.0-100.0); Macrocytosis Moderate; Mean Platelet Volume 9.1; Platelet Count 246 k/uL (150-450); RBC 4.37 m/uL (4.30-5.90); RDW 17.3 % (11.5-15.5); WBC 9.4 k/uL (3.8-10.6)
[2018-07-15 08:53] LABS: Anion Gap 9 mmol/L; Blood Urea Nitrogen 17 mg/dL (9-20); Carbon Dioxide 25 mmol/L (22-30); Chloride 106 mmol/L (98-107); Potassium 4.7 mmol/L (3.5-5.1); Sodium 140 mmol/L (137-145)
== END ==
LOC: LABPAT 07:51
PROVIDERS: ATTEND Internal Medicine Interventional Cardiology
DX: Z01.812 Encounter for preprocedural laboratory examination (principal); I10 Essential (primary) hypertension; E78.1 Pure hyperglyceridemia; I65.23 Occlusion and stenosis of bilateral carotid arteries
CPT/HCPCS: 80051; 82565; 84520; 85027

== ENCOUNTER 2018-07-31 07:26 | Day surgery (SDC) | payer MEDICARE, OTHER ==
[~2018-07-31 07:26] MED LIST changes: +ASPIRIN 325 MG TAB PO ONE; +DEXAMETHASONE SOD PHOSPHATE 10 MG/ML 1 ML VIAL IV ONE; +HYDROmorphone 0.5 MG/0.5 ML SYRINGE IVP PRN; +LACTATED RINGERS 1,000 ML IV SCH; +LIDOCAINE 1% 20 ML VIAL (10MG/ML) FOR IV START INTRADERMA PRN; +ONDANSETRON 4 MG/2 ML VIAL IVP ONE; -Pre Op ABX Message 1 EACH MISC MISCELLANE ONE; +SCOPOLAMINE 1.5MG/72HR PATCH TRANSDERM ONE
[2018-07-31] MEDS ORDERED: SODIUM CHLORIDE 0.9% 1,000 ML IV ONE (08:19)
[2018-07-31 08:34] LABS: Glucose,Whole Blood 190 mg/dL (75-99)
[2018-07-31] MEDS ORDERED: MIDAZOLAM 2 MG/2 ML VIAL IVP ONE (08:50)
[2018-07-31] MEDS: fentaNYL (PF) 50 MCG/ML 2 ML AMP IVP ONE ×2 (08:50→09:35)
[2018-07-31] MEDS ORDERED: LIDOCAINE 1% (PF) 10MG/ML VIAL SQ ONE (09:00)
[2018-07-31] MEDS ORDERED: HEPARIN SODIUM 1,000 UN/ML (10ML VL) IV ONE (09:30)
[2018-07-31] MEDS ORDERED: IOPAMIDOL-250 100ML BTL INTRAARTER ONE ×3 (09:49→09:50)
[2018-07-31] MEDS ORDERED: SODIUM CHLORIDE 0.9% 1,000 ML IV SCH (10:00)
[2018-07-31] MEDS ORDERED: CLOPIDOGREL 75 MG TAB PO ONE (10:02)
--- NOTE | 2018-07-31 12:55 | IR ---
EXAMINATION TYPE: IR stent intravas non coronary DATE OF EXAM: 07/31/2018 COMPARISON: NONE HISTORY: Peripheral vascular occlusive disease. Fluoroscopy was provided to the referring clinician. See dictated report from cardiology.
[2018-07-31 13:54] LABS: Glucose,Whole Blood 176 mg/dL (75-99)
[2018-07-31 15:19] VITALS: RESP 18
[2018-07-31 16:50] VITALS: BMI 29.8
[2018-07-31] MEDS: SODIUM CHLORIDE 0.9% 1,000 ML IV SCH (16:58)
[2018-07-31 17:19] LABS: Glucose,Whole Blood 258 mg/dL (75-99)
[2018-07-31] MEDS ORDERED: LISINOPRIL 2.5 MG TAB PO SCH (17:30)
[2018-07-31] MEDS: INSULIN ASPART 100 UNIT/ML 1 ML 10 ML VIAL SQ SCH ×2 (17:36→21:18)
[2018-07-31 20:49] LABS: Glucose,Whole Blood 219 mg/dL (75-99)
[2018-07-31] MEDS ORDERED: PRAVASTATIN SODIUM 20 MG TAB PO SCH (21:00)
[2018-07-31] MEDS ORDERED: DOXAZOSIN 1 MG TAB PO SCH (21:00)
[2018-07-31] MEDS ORDERED: CHOLECALCIFEROL 1,000 UNIT TAB PO SCH (21:00)
--- NOTE | 2018-07-31 22:50 | LTR ---
July 31, 2018 Dayana Holguin M.D. RE: Rah Howard Dear Dr. Holguin: Rah Pereiraashleyradha underwent successful stenting of the left subclavian with good angiographic results and without any complications. I want to thank you for allowing me to participate in his care. Please do not hesitate to call if you have any questions or concerns. Sincerely, Manuelito Dixon M.D. KAMARI / CATHERINE: [id number] /
[2018-08-01 05:29] LABS: Glucose,Whole Blood 162 mg/dL (75-99)
[2018-08-01] MEDS: SODIUM CHLORIDE 0.9% 1,000 ML IV SCH (06:26)
[2018-08-01] MEDS: INSULIN ASPART 100 UNIT/ML 1 ML 10 ML VIAL SQ SCH (06:28)
--- NOTE | 2018-08-01 07:49 | AN ---
ANGIOGRAPHY REPORT DATE OF SERVICE: 07/31/2018 PERFORMING PHYSICIAN: Manuelito Dixon MD, Event Decorator. PROCEDURE PERFORMED: 1. An aortic arch angiogram. 2. Selective bilateral common and internal carotid arteries angiogram. 3. Left subclavian angiogram. 4. Successful stenting of the proximal left subclavian artery using 8.3 x 22 mm balloon expandable stent with an excellent angiographic results. INDICATION: This is a pleasant 78-year-old gentleman who was experiencing recently symptoms of dizziness and lightheadedness. 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 Because of that, an angiogram was recommended. APPROACH: Right common femoral artery. COMPLICATION: None. LEVEL OF SEDATION: Moderate with sedation length of 1 hour. PROCEDURE DESCRIPTION: After obtaining an informed consent, the patient was brought to the cardiac labor utilization superintendent. After that, I did place a 6-Icelandic sheath in the right common femoral artery. After that I did do an aortic arch angiogram using a pigtail catheter. Then I did selective left carotid and right carotid angiogram using JB2 catheters. After that, I did selective left subclavian angiogram using a Yasmani right catheter. Then I did stent the left subclavian. Please see a separate paragraph for that. AORTIC ARCH ANGIOGRAM: The aortic arch angiogram was performed in the ALLAN projection and using a power injection. The aortic arch is type 2/bovine arch. The arch itself is angiographically normal. SELECTIVE CAROTID ANGIOGRAM: 1. The right common carotid artery appeared to have mild disease only. The right internal carotid artery appeared to have a plaque in the range of 60% to 70%. The right external carotid artery was not opacified and was not seen. 2. The left carotid system, the left common carotid artery appeared to have mild disease only. The left internal carotid artery appeared to have mild disease only as well. The left external carotid appeared to have mild disease as well. LEFT SUBCLAVIAN ANGIOGRAM: 1. The left subclavian angiogram was performed in the UKRAINIAN projection and using a hand injection. The proximal left subclavian appeared to have a tight lesion in the range of 70% to 80%. 2. Left subclavian stenting, anticoagulation was initiated using heparin. After that, I did wire the left subclavian through the Yasmani right catheter and the wire was advanced distally and that was an 0.035 Burlison Advantage wire. Subsequently I did exchange my 11 cm sheath into 90 cm shuttle sheath using the 0.035 Burlison Advantage wire. The tip of the sheath was positioned in the proximal left subclavian. After that, I did balloon angioplasty using 6 mm balloon before I deployed 8 x 22 mm Omnilink balloon expandable stent where the stent was positioned under fluoroscopy guidance and deployed under fluoroscopy guidance. The following angiogram showed excellent angiographic results and the procedure was completed without any complication. CONCLUSION: 1. Type 2/bovine arch. 2. Intermediate to severe disease involving the right internal carotid artery. 3. Mild disease involving the left internal carotid artery. 4. Severe disease involving the left subclavian artery in the proximal portion. 5. Successful stenting of the proximal left subclavian using balloon expandable stent with good angiographic results. POSTPROCEDURE MANAGEMENT: Maximize medical treatment and follow up with the patient. MMODL / IJN: [id number] /
[2018-08-01] MEDS: ASPIRIN 325 MG TAB PO SCH ×2 (07:56→07:58)
[2018-08-01 08:09] VITALS: BP 149/56; PULSE 65; TEMP 97
[2018-08-01] MEDS ORDERED: ASPIRIN 325 MG TAB PO SCH (09:00)
[2018-08-01] MEDS ORDERED: CLOPIDOGREL 75 MG TAB PO SCH (09:00)
--- NOTE | 2018-08-01 10:28 | DS ---
DISCHARGE SUMMARY ADMISSION DATE: 07/31/2018. DISCHARGE DATE: 08/01/2018 BRIEF HISTORY: This is a 78-year-old gentleman who was admitted to the hospital and underwent successful stenting of the left subclavian with good angiographic results and without any complication. The patient is going to be discharged home on dual anti-platelet therapy and I will follow up with him in the office in a week. MMSHIRLENE / CATHERINE: [id number] /
[2018-08-01 12:44] LABS: Hemoglobin A1C 7.4 % (4.0-6.0)
== END 2018-08-01 09:13 | disposition home or self-care (01) ==
LOC: CATHCVL 07:26 → 3SCARD 16:06 → CATHCVL 08-01 09:13
PROVIDERS: ATTEND Internal Medicine Interventional Cardiology
DX: G45.8 Other transient cerebral ischemic attacks and related syndromes (principal); E78.5 Hyperlipidemia, unspecified; I10 Essential (primary) hypertension; E11.9 Type 2 diabetes mellitus without complications; Z72.0 Tobacco use; Z79.82 Long term (current) use of aspirin; Z79.899 Other long term (current) drug therapy; Z79.84 Long term (current) use of oral hypoglycemic drugs
CPT/HCPCS: 37236; 36222; 85347; 82565; 83036; C1894 ×3; C1769 ×4; C1725; C1876; J2250; J3010; J1644; J2001; Q9966

== ENCOUNTER 2019-06-02 10:41 | Inpatient (IN) | payer MEDICARE, OTHER ==
[2019-06-02] MEDS ORDERED: NITROGLYCERIN OINT 1 INCH/GM PACKET TOPICAL STA (11:20)
--- NOTE | 2019-06-02 11:33 | ED ---
General Adult HPI - General Chief complaint: Chest Pain Stated complaint: Heartburn Time Seen by Provider: 06/02/19 11:00 Source: patient, RN notes reviewed Mode of arrival: ambulatory Limitations: no limitations - History of Present Illness Initial comments: This is an 79-year-old male who presents emergency Department with a past medical history significant for diabetes hypertension high cholesterol. Patient also states his family history of heart disease per patient states over the last 2 weeks he's been having chest pain on and off he states it's worse when he exerts himself and it lasts up to 3 hours. Patient states that he had a three-hour episode so he went to see his primary medical care doctor he was probably sent to the emergency department. Patient states it does radiate to the left side of his chest but does not go to his neck back or arm. Patient denies any difficulty breathing. Patient denies any shortness of breath. Miri ent denies any diaphoretic episodes or patient's any nausea patient patient denies abdominal pain. Patient denies any recent fever chills or cough per patient denies any swelling to legs or calf tenderness. Patient states currently he is chest pain-free. - Related Data Home Medications Medication Instructions Recorded Confirmed Cholecalciferol [Vitamin D3 (25 4,000 unit PO HS 05/10/16 06/02/19 Mcg = 1000 Iu)] Doxazosin [Cardura] 1 mg PO HS 05/10/16 06/02/19 Lisinopril [Zestril] 1.25 mg PO W/SUPPER 05/10/16 06/02/19 metFORMIN HCL [Glucophage Xr] 1,500 mg PO W/SUPPER 05/10/16 06/02/19 Pravastatin Sodium [Pravachol] 5 mg PO HS 11/22/16 06/02/19 Previous Rx's Medication Instructions Recorded Aspirin 325 mg PO DAILY #90 tab 08/01/18 Clopidogrel [Plavix] 75 mg PO DAILY #90 tab 08/01/18 Allergies Allergy/AdvReac Type Severity Reaction Status Date / Time tamsulosin [From Flomax] Allergy Rash/Hives Verified 06/02/19 11:24 Review of Systems ROS Statement: Those systems with pertinent positive or pertinent negative responses have been documented in the HPI. ROS Other: All systems not noted in ROS Statement are negative. Past Medical History Past Medical History: Cancer, Diabetes Mellitus, Osteoarthritis (OA), Prostate Disorder Additional Past Medical History / Comment(s): Enlarged prostate, basal cell carcinoma top of head, kidney stones, blocked nicole carotid arteries, 07/31/2018 Stent to (L)subclav History of Any Multi-Drug Resistant Organisms: None Reported Past Surgical History: Back Surgery, Cholecystectomy, Orthopedic Surgery Additional Past Surgical History / Comment(s): nicole carpel tunnel,heel spur,basal cell removed from scalp Past Anesthesia/Blood Transfusion Reactions: No Reported Reaction Past Psychological History: No Psychological Hx Reported Past Alcohol Use History: Occasional - Past Family History Father History Unknown: Yes Mother Family Medical History: No Reported History General Exam - General Exam Comments Initial Comments: GENERAL: Patient is well-developed and well-nourished. Patient is nontoxic and well- hydrated and is in mild distress. ENT: Neck is soft and supple. No significant lymphadenopathy is noted. Oropharynx is clear. Moist mucous membranes. Neck has full range of motion without eliciting any pain. EYES: The sclera were anicteric and conjunctiva were pink and moist. Extraocular movements were intact and pupils were equal round and reactive to light. Eyelids were unremarkable. PULMONARY: Unlabored respirations. Good breath sounds bilaterally. No audible rales r honchi or wheezing was noted. CARDIOVASCULAR: There is a regular rate and rhythm without any murmurs gallops or rubs. ABDOMEN: Soft and nontender with normal bowel sounds. No palpable organomegaly was noted. There is no palpable pulsatile mass. SKIN: Skin is clear with no lesions or rashes and otherwise unremarkable. NEUROLOGIC: Patient is alert and oriented x3. Cranial nerves II through XII are grossly intact. Motor and sensory are also intact. Normal speech, volume and content. Symmetrical smile. MUSCULOSKELETAL: Normal extremities with adequate strength and full range of motion. No lower extremity swelling or edema. No calf tenderness. LYMPHATICS: No significant lymphadenopathy is noted PSYCHIATRIC: Normal psychiatric evaluation. Limitations: no limitations Course Vital Signs 06/02/19 06/02/19 06/02/19 10:44 12:02 13:44 Temperature 98.0 F Pulse Rate 64 56 L 53 L Respiratory 18 18 18 Rate Blood Pressure 144/75 151/65 139/59 O2 Sat by Pulse 98 99 98 Oximetry Medical Decision Making - Medical Decision Making EKG shows normal sinus rhythm at 61 bpm OR interval 172 QRS is 80 QT interval 398 QTC is 400 per patient's EKG shows no ST segment elevation or depression or T wave abnormalities are noted. I spoke with Dr. Gifford he agreed to admit the patient admitted the patient wrote admitting orders. Chest x-ray showed no acute abnormality. I started the patient on heparin I continue heparin has been Nitropaste on the floor. - Lab Data Result diagrams: 06/03/19 05:59 06/03/19 05:59 Lab Results 06/02/19 06/02/19 06/02/19 Range/Units 11:04 11:04 11:04 WBC 9.3 (3.8-10.6) k/uL RBC 4.19 L (4.30-5.90) m/uL Hgb 14.5 (13.0-17.5) gm/dL Hct 43.8 (39.0-53.0) % MCV 104.5 H (80.0-100.0) fL MCH 34.5 (25.0-35.0) pg MCHC 33.0 (31.0-37.0) g/dL RDW 17.1 H (11.5-15.5) % Plt Count 262 (150-450) k/uL Neutrophils % 71 % Lymphocytes % 20 % Monocytes % 4 % Eosinophils % 2 % Basophils % 1 % Neutrophils # 6.6 (1.3-7.7) k/uL Lymphocytes # 1.9 (1.0-4.8) k/uL Monocytes # 0.4 (0-1.0) k/uL Eosinophils # 0.1 (0-0.7) k/uL Basophils # 0.1 (0-0.2) k/uL Hypochromasia Slight Anisocytosis Slight Macrocytosis Moderate PT 9.6 (9.0-12.0) sec INR 0.9 (<1.2) APTT 24.2 (22.0-30.0) sec Sodium 139 (137-145) mmol/L Potassium 4.8 (3.5-5.1) mmol/L Chloride 105 (98-107) mmol/L Carbon Dioxide 25 (22-30) mmol/L Anion Gap 9 mmol/L BUN 17 (9-20) mg/dL Creatinine 0.74 (0.66-1.25) mg/dL Est GFR (CKD-EPI)AfAm >90 (>60 ml/min/1.73 sqM) Est GFR (CKD-EPI)NonAf 87 (>60 ml/min/1.73 sqM) Glucose 164 H (74-99) mg/dL Calcium 9.4 (8.4-10.2) mg/dL Magnesium 1.9 (1.6-2.3) mg/dL Total Bilirubin 0.7 (0.2-1.3) mg/dL AST 27 (17-59) U/L ALT 26 (21-72) U/L Alkaline Phosphatase 47 (38-126) U/L Troponin I (0.000-0.034) ng/mL Total Protein 6.9 (6.3-8.2) g/dL Albumin 4.2 (3.5-5.0) g/dL 06/02/19 Range/Units 11:04 WBC (3.8-10.6) k/uL RBC (4.30-5.90) m/uL Hgb (13.0-17.5) gm/dL Hct (39.0-53.0) % MCV (80.0-100.0) fL MCH (25.0-35.0) pg MCHC (31.0-37.0) g/dL RDW (11.5-15.5) % Plt Count (150-450) k/uL Neutrophils % % Lymphocytes % % Monocytes % % Eosinophils % % Basophils % % Neutrophils # (1.3-7.7) k/uL Lymphocytes # (1.0-4.8) k/uL Monocytes # (0-1.0) k/uL Eosinophils # (0-0.7) k/uL Basophils # (0-0.2) k/uL Hypochromasia Anisocytosis Macrocytosis PT (9.0-12.0) sec INR (<1.2) APTT (22.0-30.0) sec Sodium (137-145) mmol/L Potassium (3.5-5.1) mmol/L Chloride (98-107) mmol/L Carbon Dioxide (22-30) mmol/L Anion Gap mmol/L BUN (9-20) mg/dL Creatinine (0.66-1.25) mg/dL Est GFR (CKD-EPI)AfAm (>60 ml/min/1.73 sqM) Est GFR (CKD-EPI)NonAf (>60 ml/min/1.73 sqM) Glucose (74-99) mg/dL Calcium (8.4-10.2) mg/dL Magnesium (1.6-2.3) mg/dL Total Bilirubin (0.2-1.3) mg/dL AST (17-59) U/L ALT (21-72) U/L Alkaline Phosphatase (38-126) U/L Troponin I <0.012 (0.000-0.034) ng/mL Total Protein (6.3-8.2) g/dL Albumin (3.5-5.0) g/dL Critical Care Time Critical Care Time: Yes Total Critical Care Time: 35 Disposition Clinical Impression: Chest pain Disposition: ADMITTED IP TO THIS [facility] Time of Disposition: 20:16
[2019-06-02 11:47] LABS: Anisocytosis Slight; Basophils # (A) 0.1 k/uL (0-0.2); Basophils % (A) 1 %; Eosinophils # (A) 0.1 k/uL (0-0.7); Eosinophils % (A) 2 %; HCT 43.8 % (39.0-53.0); HGB 14.5 gm/dL (13.0-17.5); Hypochromasia Slight; Lymphocytes # (A) 1.9 k/uL (1.0-4.8); Lymphocytes % (A) 20 %; MCH 34.5 pg (25.0-35.0); MCV 104.5 fL (80.0-100.0); Macrocytosis Moderate; Mean Platelet Volume 8.2; Monocytes # (A) 0.4 k/uL (0-1.0); Monocytes % (A) 4 %; Neutrophils # (A) 6.6 k/uL (1.3-7.7); Neutrophils % (A) 71 %; Platelet Count 262 k/uL (150-450); RBC 4.19 m/uL (4.30-5.90); RDW 17.1 % (11.5-15.5); WBC 9.3 k/uL (3.8-10.6)
[2019-06-02 11:51] LABS: ALT 26 U/L (21-72); AST 27 U/L (17-59); African American GFR (CKD) >90 (>60 ml/min/1.73 sqM); Albumin 4.2 g/dL (3.5-5.0); Alkaline Phosphatase 47 U/L (38-126); Anion Gap 9 mmol/L; Blood Urea Nitrogen 17 mg/dL (9-20); Calcium 9.4 mg/dL (8.4-10.2); Carbon Dioxide 25 mmol/L (22-30); Chloride 105 mmol/L (98-107); Glucose 164 mg/dL (74-99); Magnesium 1.9 mg/dL (1.6-2.3); Potassium 4.8 mmol/L (3.5-5.1); Sodium 139 mmol/L (137-145); Total Bilirubin 0.7 mg/dL (0.2-1.3); Total Protein 6.9 g/dL (6.3-8.2)
[2019-06-02 11:56] LABS: INR 0.9 (<1.2); Partial Thromboplastin Time 24.2 sec (22.0-30.0); Prothrombin Time 9.6 sec (9.0-12.0)
--- NOTE | 2019-06-02 11:58 | XR ---
EXAMINATION TYPE: XR chest 2V DATE OF EXAM: 06/02/2019 COMPARISON: Prior chest x-ray 11/22/2016 HISTORY: Chest pain TECHNIQUE: Frontal and lateral views of the chest are obtained. FINDINGS: There are overlying cardiac leads. Aorta is dense. There is no focal air space opacity, ple ural effusion, or pneumothorax seen. The cardiac silhouette size is within normal limits. The osse ous structures are intact. IMPRESSION: No acute cardiopulmonary process.
[2019-06-02] MEDS ORDERED: HEPARIN SODIUM,PORCINE 5,000 UNIT/ML 1 ML VIAL IV ONE (12:40)
[2019-06-02] MEDS ORDERED: HEPARIN SOD,PORK IN 0.45% NACL 25,000 UNIT in 0.45% NACL 1 250ML.BAG IV SCH (12:45)
[2019-06-02] MEDS ORDERED: NITROGLYCERIN SL TABS 0.4 MG TAB SUBLINGUAL PRN (12:53)
[2019-06-02] MEDS ORDERED: ONDANSETRON 4 MG/2 ML VIAL IVP PRN (14:20)
[2019-06-02] MEDS ORDERED: ACETAMINOPHEN TAB 325 MG TAB PO PRN (14:20)
--- NOTE | 2019-06-02 14:20 | P.HPIM ---
History of Present Illness H&P Date: 06/02/19 Chief Complaint: Chest pain This is an 79-year-old male patient of Dr. Holguin. Patient presented with complaints of intermittent heartburn-like chest pain over the past 2 weeks reports that has been ongoing lasting a few hours at a time. Patient denies any associated shortness of breath but does admit to feeling fatigued. Patient denies any nausea or vomiting or diaphoresis. Patient does report family history of coronary artery disease in mother. Patient denies any history of heart disease for himself. Patient does have a past medical history of carotid stent, diabetes mellitus, history arthritis, prostate disorder, basal cell carcinoma and ex-smoker. Chest x-ray completed showing no acute cardiopulmonary process. EKG completed showing sinus rhythm with sinus arrhythmia septal infarct age undetermined. Initial troponin negative. Heparin drip has been o rdered. Cardiology services have been consulted. At this time patient denies chest pain or shortness of breath. Patient denies nausea vomiting or diarrhea. Patient denies any urinary burning or frequency. Review of Systems Please refer to HPI otherwise unremarkable Past Medical History Past Medical History: Cancer, Diabetes Mellitus, Osteoarthritis (OA), Prostate Disorder Additional Past Medical History / Comment(s): Enlarged prostate, basal cell carcinoma top of head, kidney stones, blocked nicole carotid arteries, 07/31/2018 Stent to (L)subclav History of Any Multi-Drug Resistant Organisms: None Reported Past Surgical History: Back Surgery, Cholecystectomy, Orthopedic Surgery Additional Past Surgical History / Comment(s): nicole carpel tunnel,heel spur,basal cell removed from scalp Past Anesthesia/Blood Transfusion Reactions: No Reported Reaction Past Psychological History: No Psychological Hx Reported Past Alcohol Use History: Occasional - Past Family History Father History Unknown: Yes Mother Family Medical History: No Reported History Medications and Allergies Home Medications Medication Instructions Recorded Confirmed Type Cholecalciferol [Vitamin D3 (25 4,000 unit PO HS 05/10/16 06/02/19 History Mcg = 1000 Iu)] Doxazosin [Cardura] 1 mg PO HS 05/10/16 06/02/19 History Lisinopril [Zestril] 1.25 mg PO W/SUPPER 05/10/16 06/02/19 History metFORMIN HCL [Glucophage Xr] 1,500 mg PO W/SUPPER 05/10/16 06/02/19 History Pravastatin Sodium [Pravachol] 5 mg PO HS 11/22/16 06/02/19 History Aspirin 325 mg PO DAILY #90 tab 08/01/18 06/02/19 Rx Clopidogrel [Plavix] 75 mg PO DAILY #90 tab 08/01/18 06/02/19 Rx Allergies Allergy/AdvReac Type Severity Reaction Status Date / Time tamsulosin [From Flomax] Allergy Rash/Hives Verified 06/02/19 11:24 Physical Exam Vitals: Vital Signs Temp Pulse Resp BP Pulse Ox 06/02/19 13:44 53 L 18 139/59 98 06/02/19 12:02 56 L 18 151/65 99 06/02/19 10:44 98.0 F 64 18 144/75 98 Intake and Output 06/01/19 06/02/19 06/02/19 22:59 06:59 14:59 Other: Weight 92.17 kg Head normocephalic Neck supple Lungs clear to auscultation bilaterally no wheezing or crackles Heart regular rate and rhythm S1-S2, no rub or gallop Abdomen is soft nontender nondistended positive bowel sounds no hepatosplenomegaly Extremities no edema Neuro alert and orientated to 3 Results CBC & Chem 7: 06/02/19 11:04 06/02/19 11:04 Labs: Abnormal Lab Results - Last 24 Hours (Table) 06/02/19 06/02/19 Range/Units 11:04 11:04 RBC 4.19 L (4.30-5.90) m/uL MCV 104.5 H (80.0-100.0) fL RDW 17.1 H (11.5-15.5) % Glucose 164 H (74-99) mg/dL Assessment and Plan Assessment: 1. Chest pain. Chest x-ray completed showing no acute cardiopulmonary process. EKG completed showing normal sinus rhythm with sinus arrhythmia. Troponin negative. Patient started on heparin drip. Serial troponins ordered. Cardiology services consulted. 2. History of carotid stent in July 2018. Maintain on aspirin and Plavix 3. History of diabetes mellitus. Metformin on hold 4. History of enlarged prostate 5. History of basal cell carcinoma 6. Ex-smoker. DVT prophylaxis heparin drip. GI prophylaxis Pepcid Time with Patient: Greater than 30 (Greater than 60% of the total time spent in counseling and coordination of care. I performed an examination of the patient and discussed their management with the Nurse Practitioner. I have reviewed the Nurse Practitioner's notes and agree with the documented findings and plan of care)
[2019-06-02 16:37] LABS: Glucose,Whole Blood 182 mg/dL (75-99)
[2019-06-02] MEDS: INSULIN ASPART (NovoLOG) 100 UNIT/ML VIAL SQ SCH ×2 (16:42→21:04)
[2019-06-02] MEDS: NITROGLYCERIN OINT 1 INCH/GM PACKET TOPICAL SCH ×2 (16:42→23:31)
[2019-06-02] MEDS: LISINOPRIL 2.5 MG TAB PO SCH (18:47)
[2019-06-02 20:00] LABS: Glucose,Whole Blood 229 mg/dL (75-99)
[2019-06-02] MEDS: CHOLECALCIFEROL 1,000 UNIT TAB PO SCH (21:04)
[2019-06-02] MEDS: PRAVASTATIN SODIUM 20 MG TAB PO SCH (21:04)
[2019-06-02] MEDS: DOXAZOSIN 1 MG TAB PO SCH (21:04)
[2019-06-03] MEDS: NITROGLYCERIN OINT 1 INCH/GM PACKET TOPICAL SCH (03:32)
[2019-06-03 06:20] LABS: Anisocytosis Slight; Basophils % (A) 1 %; Eosinophils # (A) 0.2 k/uL (0-0.7); Eosinophils % (A) 3 %; HCT 40.7 % (39.0-53.0); HGB 13.4 gm/dL (13.0-17.5); Hypochromasia Slight; Lymphocytes # (A) 1.6 k/uL (1.0-4.8); Lymphocytes % (A) 23 %; MCH 34.4 pg (25.0-35.0); MCHC 32.8 g/dL (31.0-37.0); MCV 104.7 fL (80.0-100.0); Macrocytosis Moderate; Mean Platelet Volume 8.7; Monocytes # (A) 0.3 k/uL (0-1.0); Monocytes % (A) 5 %; Neutrophils # (A) 4.7 k/uL (1.3-7.7); Neutrophils % (A) 66 %; Platelet Count 230 k/uL (150-450); RBC 3.89 m/uL (4.30-5.90); RDW 17.2 % (11.5-15.5); WBC 7.1 k/uL (3.8-10.6)
[2019-06-03 06:34] LABS: Glucose,Whole Blood 157 mg/dL (75-99)
[2019-06-03 07:04] LABS: ALT 31 U/L (21-72); AST 27 U/L (17-59); African American GFR (CKD) >90 (>60 ml/min/1.73 sqM); Albumin 3.5 g/dL (3.5-5.0); Alkaline Phosphatase 40 U/L (38-126); Anion Gap 9 mmol/L; Blood Urea Nitrogen 18 mg/dL (9-20); Calcium 9.6 mg/dL (8.4-10.2); Carbon Dioxide 24 mmol/L (22-30); Chloride 107 mmol/L (98-107); Cholesterol 111 mg/dL (<200); Glucose 166 mg/dL (74-99); HDL Cholesterol 39 mg/dL (40-60); LDL Cholesterol,Calculated 54 mg/dL (0-99); Potassium 4.5 mmol/L (3.5-5.1); Sodium 140 mmol/L (137-145); Total Bilirubin 0.6 mg/dL (0.2-1.3); Triglycerides 88 mg/dL (<150)
[2019-06-03] MEDS ORDERED: ASPIRIN 81 MG PO SCH (09:00)
[2019-06-03] MEDS ORDERED: ASPIRIN 325 MG TAB PO SCH (09:00)
[2019-06-03] MEDS ORDERED: CAFFEINE CITRATE 60 MG/3 ML VIAL IV PRN (09:21)
[2019-06-03] MEDS ORDERED: AMINOPHYLLINE 500 MG/20 ML VIAL IV PRN (09:21)
[2019-06-03] MEDS ORDERED: DIPYRIDAMOLE IV ONE (09:30)
[2019-06-03] MEDS ORDERED: SODIUM CHLORIDE 0.9% IV ONE (09:30)
[2019-06-03] MEDS: INSULIN ASPART (NovoLOG) 100 UNIT/ML VIAL SQ SCH ×4 (12:27→20:27)
[2019-06-03 12:36] LABS: Glucose,Whole Blood 154 mg/dL (75-99)
[2019-06-03] MEDS: CLOPIDOGREL 75 MG TAB PO SCH (12:46)
[2019-06-03] MEDS: FAMOTIDINE 20 MG TAB PO SCH (12:46)
--- NOTE | 2019-06-03 12:56 | P.CRDCN ---
History of Present Illness History of present illness: This is a pleasant 79-year-old male past medical history significant for diabetes mellitus, peripheral vascular disease with bilateral carotid stenosis and recent stent placement to the left subclavian by Dr. Dixon July 2018, former nicotine dependence and osteoarthritis. He denies prior history of coronary artery disease and has never had a heart catheterization. We have been asked to see him in consultation secondary to chest discomfort. He states for the previous one week intermittently he has been experiencing a heavy indigestion type sensation in the midsternal region. The discomfort does not radiate to the back, down the arms, into the neck or jaw. It is not associated with shortness of breath, dizziness, nausea, vomiting or diaphoresis. The discomfort is not exacerbated by activity or exertion and is not related to oral intake. He is a quite active 79-year-old man who recently cleared over 200 trees off of his property with no symptoms of discomfort. Yesterday he was going to see his primary care physician for a routine physical and when he describes this discomfort to her she recommended further evaluation at the hospital. He did have an episode yesterday morning prior to going to her office. He's seen and examined resting comfortably in bed in no acute distress. He denies active chest discomfort at this time. EKG reveals sinus mechanism with sinus arrhythmia and poor R-wave progression. Chest x-ray is negative for acute cardiopulmonary process. Laboratory data reviewed, WBC 7.1, hemoglobin 13.4, platelets 230, cardiac enzymes negative 3, sodium 140, potassium 4.5, creatinine 0.78, magnesium 1.9, LDL 54. Current daily cardiac medications include aspirin 325 mg daily, Plavix 75 mg daily, pravastatin 5 mg daily, lisinopril 1.25 mg by mouth daily and Cardura 1 mg daily. Most recent stress test and echocardiogram performed in the office to September 2018 ejection fraction 50% At the time of my exam: CONSTITUTIONAL: Denies fever. Denies chills. EYES: Denies blurred vision. Denies vision changes. Denies eye pain. EARS, NOSE, MOUTH & THROAT: Denies headache. Denies sore throat. Denies ear pain. CARDIOVASCULAR: Denies chest pain. Denies shortness of breath. Denies orthopnea. Denies PND. Denies palpitations. RESPIRATORY: Denies cough. GASTROINTESTINAL: Denies abdominal pain. Denies diarrhea. Denies constipation. Denies nausea. Denies vomiting. MUSCULOSKELETAL: Denies myalgias. INTEGUMENTARY: Denies pruitis. Denies rash. NEUROLOGIC: Denies numbness. Denies tingling. Denies weakness. PSYCHIATRIC: Denies anxiety. Denies depression. ENDOCRINE: Denies fatigue. Denies weight change. Denies polydipsia. Denies polyurina. GENITOURINARY: Denies burning, hematuria or urgency with micturation. HEMATOLOGIC: Denies history of anemia. Denies bleeding. Blood pressure 152/70 heart rate 63 afebrile maintaining oxygen saturation on room air GENERAL: This is a 79-year-old male in no apparent distress at the time of my examination. HEENT: Head is atraumatic, normocephalic. Pupils are equal, round. Sclerae anicteric. Conjunctivae are clear. Mucous membranes of the mouth are moist. Neck is supple. There is no jugular venous distention. No carotid bruit is heard. LUNGS: Clear to auscultation no wheezes, rales or rhonchi. No chest wall tenderness is noted on palpation or with deep breathing. HEART: Regular rate and rhythm with systolic ejection murmur at the base, no rubs or gallops. S1 and S2 heard. ABDOMEN: Soft, nontender. Bowel sounds are heard. No organomegaly noted. EXTREMITIES: No evidence of peripheral edema and no calf tenderness noted. VASCULAR: Radial and dorsalis pedis pulses palpated, no evidence of clubbing. NEUROLOGIC: Patient is awake, alert and oriented x3. ASSESSMENT Chest pain, an acute coronary event has been ruled out. Diabetes mellitus Peripheral vascular disease, recent left subclavian stent antiplatelet therapy Former nicotine dependence PLAN An acute coronary event has been ruled out. Discontinue heparin infusion. Decrease aspirin to 81 mg daily. Repeat stress test to assess for reversible cardiac ischemia. Obtain 2-D echocardiogram and Doppler study to assess cardiac structure and function. Underlying coronary artery disease is likely given his significant history of peripheral vascular disease however symptoms are not suggestive of unstable angina. Thank you kindly for this consultation. Nurse Practitioner note has been reviewed, I agree with a documented findings and plan of care. Patient was seen and examined. Past Medical History Past Medical History: Cancer, Diabetes Mellitus, Osteoarthritis (OA), Prostate Disorder Additional Past Medical History / Comment(s): Enlarged prostate, basal cell carcinoma top of head, kidney stones, blocked nicole carotid arteries, 07/31/2018 Stent to (L)subclav History of Any Multi-Drug Resistant Organisms: None Reported Past Surgical History: Back Surgery, Cholecystectomy, Orthopedic Surgery Additional Past Surgical History / Comment(s): nicole carpel tunnel,heel spur,basal cell removed from scalp Past Anesthesia/Blood Transfusion Reactions: No Reported Reaction Past Psychological History: No Psychological Hx Reported Past Alcohol Use History: Occasional - Past Family History Father History Unknown: Yes Mother Family Medical History: No Reported History Medications and Allergies Home Medications Medication Instructions Recorded Confirmed Type Cholecalciferol [Vitamin D3 (25 4,000 unit PO HS 05/10/16 06/02/19 History Mcg = 1000 Iu)] Doxazosin [Cardura] 1 mg PO HS 05/10/16 06/02/19 History Lisinopril [Zestril] 1.25 mg PO W/SUPPER 05/10/16 06/02/19 History metFORMIN HCL [Glucophage Xr] 1,500 mg PO W/SUPPER 05/10/16 06/02/19 History Pravastatin Sodium [Pravachol] 5 mg PO HS 11/22/16 06/02/19 History Aspirin 325 mg PO DAILY #90 tab 08/01/18 06/02/19 Rx Clopidogrel [Plavix] 75 mg PO DAILY #90 tab 08/01/18 06/02/19 Rx Allergies Allergy/AdvReac Type Severity Reaction Status Date / Time tamsulosin [From Flomax] Allergy Rash/Hives Verified 06/02/19 11:24 Physical Exam Vitals: Vital Signs Temp Pulse Pulse Resp BP BP BP 06/03/19 07:00 97.6 F 65 18 148/68 06/03/19 04:00 97.6 F 71 18 143/65 06/03/19 03:23 18 06/02/19 23:10 97.6 F 71 18 169/63 06/02/19 23:09 18 06/02/19 20:00 18 06/02/19 19:23 97.8 F 68 18 151/71 06/02/19 16:00 18 06/02/19 15:32 97.2 F L 77 18 152/75 06/02/19 15:00 72 18 147/77 06/02/19 13:44 53 L 18 139/59 06/02/19 12:02 56 L 18 151/65 06/02/19 10:44 98.0 F 64 18 144/75 Pulse Ox 06/03/19 07:00 97 06/03/19 04:00 93 L 06/03/19 03:23 06/02/19 23:10 96 06/02/19 23:09 06/02/19 20:00 06/02/19 19:23 97 06/02/19 16:00 06/02/19 15:32 95 06/02/19 15:00 95 06/02/19 13:44 98 06/02/19 12:02 99 06/02/19 10:44 98 Intake and Output 06/02/19 06/03/19 06/03/19 22:59 06:59 14:59 Intake Total 88.333 Balance 88.333 Intake: Intake, IV Titration 88.333 Amount Heparin Sod,Pork in 0.45% 88.333 NaCl 25,000 unit In 0.45 % NaCl 1 250ml.bag @ 10. 85 UNITS/KG/HR 10 mls/hr IV .Q24H [facility] Rx#: [id number] Other: Voiding Method Toilet Toilet # Voids 1 1 Results 06/03/19 05:59 06/03/19 05:59 Cardiac Enzymes 06/02/19 06/02/19 06/02/19 Range/Units 11:04 11:04 16:45 AST 27 (17-59) U/L Troponin I <0.012 <0.012 (0.000-0.034) ng/mL 06/02/19 06/03/19 Range/Units 22:08 05:59 AST 27 (17-59) U/L Troponin I <0.012 (0.000-0.034) ng/mL Coagulation 06/02/19 06/02/19 06/03/19 Range/Units 11:04 22:08 05:59 PT 9.6 (9.0-12.0) sec APTT 24.2 42.1 H 48.7 H (22.0-30.0) sec Lipids 06/03/19 Range/Units 05:59 Triglycerides 88 (<150) mg/dL Cholesterol 111 (<200) mg/dL HDL Cholesterol 39 L (40-60) mg/dL CBC 06/02/19 06/03/19 Range/Units 11:04 05:59 WBC 9.3 7.1 (3.8-10.6) k/uL RBC 4.19 L 3.89 L (4.30-5.90) m/uL Hgb 14.5 13.4 (13.0-17.5) gm/dL Hct 43.8 40.7 (39.0-53.0) % Plt Count 262 230 (150-450) k/uL Comprehensive Metabolic Panel 06/02/19 06/03/19 Range/Units 11:04 05:59 Sodium 139 140 (137-145) mmol/L Potassium 4.8 4.5 (3.5-5.1) mmol/L Chloride 105 107 (98-107) mmol/L Carbon Dioxide 25 24 (22-30) mmol/L BUN 17 18 (9-20) mg/dL Creatinine 0.74 0.78 (0.66-1.25) mg/dL Glucose 164 H 166 H (74-99) mg/dL Calcium 9.4 9.6 (8.4-10.2) mg/dL AST 27 27 (17-59) U/L ALT 26 31 (21-72) U/L Alkaline Phosphatase 47 40 (38-126) U/L Total Protein 6.9 6.0 L (6.3-8.2) g/dL Albumin 4.2 3.5 (3.5-5.0) g/dL Current Medications Generic Name Dose Route Start Last Admin Trade Name Freq PRN Reason Stop Dose Admin Acetaminophen 650 mg 06/02/19 14:20 Tylenol Tab PO Q6HR PRN Fever and/ or Pain Aspirin 325 mg 06/03/19 09:00 Aspirin PO DAILY [facility] Cholecalciferol 4,000 unit 06/02/19 21:00 06/02/19 21:04 Vitamin D3 (25 Mcg = 1000 Iu) PO 4,000 unit HS [facility] Administration Clopidogrel Bisulfate 75 mg 06/03/19 09:00 Plavix PO DAILY [facility] Doxazosin Mesylate 1 mg 06/02/19 21:00 06/02/19 21:04 Cardura PO 1 mg HS [facility] Administration Famotidine 20 mg 06/03/19 09:00 Pepcid PO DAILY [facility] Heparin Sodium/Sodium Chloride 250 mls @ 10 mls/hr 06/02/19 12:45 06/02/19 22:58 25,000 unit/ Sodium Chloride IV 12.85 units/kg/hr .Q24H [facility] 11.844 mls/hr Titration Protocol 10.85 UNITS/KG/HR Insulin Aspart 0 unit 06/02/19 17:30 06/02/19 21:04 Novolog SQ 3 unit ACHS [facility] Administration Protocol Lisinopril 1.25 mg 06/02/19 17:30 06/02/19 18:47 Zestril PO 1.25 mg W/SUPPER [facility] Administration Nitroglycerin 0.4 mg 06/02/19 12:53 Nitrostat SUBLINGUAL Q5M PRN Chest Pain Nitroglycerin 1 inch 06/02/19 18:00 06/03/19 03:32 Nitro-Bid Oint TOPICAL Not Given Q6HR [facility] Ondansetron HCl 4 mg 06/02/19 14:20 Zofran IVP Q6HR PRN Vomiting Pravastatin Sodium 5 mg 06/02/19 21:00 06/02/19 21:04 Pravachol PO 5 mg HS [facility] Administration Intake and Output 06/02/19 06/03/19 06/03/19 22:59 06:59 14:59 Intake Total 88.333 Balance 88.333 Intake: Intake, IV Titration 88.333 Amount Heparin Sod,Pork in 0.45% 88.333 NaCl 25,000 unit In 0.45 % NaCl 1 250ml.bag @ 10. 85 UNITS/KG/HR 10 mls/hr IV .Q24H [facility] Rx#: [id number] Other: Voiding Method Toilet Toilet # Voids 1 1 06/03/19 05:59 06/03/19 05:59
--- NOTE | 2019-06-03 12:58 | NM ---
EXAMINATION TYPE: NM stress persantine cardiolit DATE OF EXAM: 06/03/2019 COMPARISON: Previous exam dated 11/29/2012 HISTORY: Chest pain TECHNIQUE: After the intravenous administration of 10.08 mCi Tc 99m Sestamibi - Cardiolite resting S PECT images acquired 60 minutes post injection. The patient received 52.5 mg Persantine, 24.8 mCi Tc 99m Sestamibi - Stress images obtained 30 minute s post injection FINDINGS: Review of stress and rest SPECT images demonstrates decreased radiopharmaceutical uptake along the in ferior wall left ventricle more so on stress than on rest images towards the base of the heart extend ing into the inferior septal region. Gated analysis shows normal wall motion with an estimated left ventricular ejection fraction of 51 %. IMPRESSION: Pharmacologically induced left ventricular myocardial ischemia. Possible prior infarct with junito-infa rct ischemia.
--- NOTE | 2019-06-03 13:48 | P.PN ---
Subjective Progress Note Date: 06/03/19 This is an 79-year-old male patient of Dr. Holguin. Patient presented with complaints of intermittent heartburn-like chest pain over the past 2 weeks reports that has been ongoing lasting a few hours at a time. Patient denies any associated shortness of breath but does admit to feeling fatigued. Patient denies any nausea or vomiting or diaphoresis. Patient does report family history of coronary artery disease in mother. Patient denies any history of heart disease for himself. Patient does have a past medical history of carotid stent, diabetes mellitus, history arthritis, prostate disorder, basal cell carcinoma and ex-smoker. Chest x-ray completed showing no acute cardiopulmonary process. EKG completed showing sinus rhythm with sinus arrhythmia septal infarct age undetermined. Initial troponin negative. Heparin drip has been ordered. Cardiology services have been consulted. At this time patient denies chest pain or shortness of breath. Patient denies nausea vomiting or diarrhea. Patient denies any urinary burning or frequency. On 06/03/2019 patient alert and oriented 3. Patient underwent chemical stress test showing induced left ventricle myocardial ischemia. Discussed with cardiology and PCP. Patient will undergo cardiac catheterization tomorrow with primary switchboard operator supervisor Dr. Jorgensen. Inattentive assessment patient denies chest pain or shortness of breath. Patient denies nausea vomiting or diarrhea. Patient denies any urinary burning or frequency. Objective - Vital Signs Vital signs: Vital Signs Temp 97.4 F L 06/03/19 12:30 Pulse 63 06/03/19 12:53 Resp 18 06/03/19 12:53 BP 152/70 06/03/19 12:30 Pulse Ox 97 06/03/19 12:30 Intake & Output 06/02/19 06/03/19 06/03/19 18:59 06:59 18:59 Intake Total 88.333 520 Balance 88.333 520 Weight 92.17 kg Intake: Intake, IV Titration 88.333 Amount Heparin Sod,Pork in 0.45% 88.333 NaCl 25,000 unit In 0.45 % NaCl 1 250ml.bag @ 10. 85 UNITS/KG/HR 10 mls/hr IV .Q24H [facility] Rx#: [id number] Oral 420 Other 100 Other: Voiding Method Toilet Toilet Toilet # Voids 1 - Exam Head normocephalic Neck supple Lungs clear to auscultation bilaterally no wheezing or crackles Heart regular rate and rhythm S1-S2, no rub or gallop Abdomen is soft nontender nondistended positive bowel sounds no hepatospl enomegaly Extremities no edema Neuro alert and orientated to 3 - Labs CBC & Chem 7: 06/03/19 05:59 06/03/19 05:59 Labs: Abnormal Lab Results - Last 24 Hours (Table) 06/02/19 06/02/19 06/02/19 Range/Units 16:36 19:59 22:08 RBC (4.30-5.90) m/uL MCV (80.0-100.0) fL RDW (11.5-15.5) % APTT 42.1 H (22.0-30.0) sec Glucose (74-99) mg/dL POC Glucose (mg/dL) 182 H 229 H (75-99) mg/dL Total Protein (6.3-8.2) g/dL HDL Cholesterol (40-60) mg/dL 06/03/19 06/03/19 06/03/19 Range/Units 05:59 05:59 05:59 RBC 3.89 L (4.30-5.90) m/uL MCV 104.7 H (80.0-100.0) fL RDW 17.2 H (11.5-15.5) % APTT 48.7 H (22.0-30.0) sec Glucose 166 H (74-99) mg/dL POC Glucose (mg/dL) (75-99) mg/dL Total Protein 6.0 L (6.3-8.2) g/dL HDL Cholesterol 39 L (40-60) mg/dL 06/03/19 06/03/19 Range/Units 06:32 12:31 RBC (4.30-5.90) m/uL MCV (80.0-100.0) fL RDW (11.5-15.5) % APTT (22.0-30.0) sec Glucose (74-99) mg/dL POC Glucose (mg/dL) 157 H 154 H (75-99) mg/dL Total Protein (6.3-8.2) g/dL HDL Cholesterol (40-60) mg/dL Assessment and Plan Assessment: 1. Chest pain. Chest x-ray completed showing no acute cardiopulmonary process. EKG completed showing normal sinus rhythm with sinus arrhythmia. Troponin negative. Patient started on heparin drip. Serial troponins ordered. Cardiology services consulted. Chemical stress test completed showing pharmacologically induced left ventricle myocardial ischemia. Possible prior in farde with junito-infarct ischemia. Discussed case with cardiology and PE planning for cardiac cath tomorrow 06/04/2019 2. History of carotid stent in July 2018. Maintain on aspirin and Plavix 3. History of diabetes mellitus. Metformin on hold 4. History of enlarged prostate 5. History of basal cell carcinoma 6. Ex-smoker. DVT prophylaxis heparin drip. GI prophylaxis Pepcid I performed an examination of the patient and discussed their management with the Nurse Practitioner. I have reviewed the Nurse Practitioner's notes and agree with the documented findings and plan of care
[2019-06-03] MEDS ORDERED: ALPRAZolam 0.25 MG TAB PO PRN (15:25)
[2019-06-03] MEDS ORDERED: SODIUM CHLORIDE 0.9% 1,000 ML in EMPTY BAG 1 BAG IV ONE (15:25)
[2019-06-03] MEDS ORDERED: ALPRAZolam 0.5 MG TAB PO PRN (15:25)
[2019-06-03] MEDS ORDERED: ASPIRIN 81 MG PO ONE (15:30)
[2019-06-03 16:26] LABS: Glucose,Whole Blood 206 mg/dL (75-99)
[2019-06-03] MEDS: LISINOPRIL 2.5 MG TAB PO SCH (17:01)
--- NOTE | 2019-06-03 17:24 | ECHOF ---
Referral Reason: MEASUREMENTS -------- HEIGHT: 175.3 cm WEIGHT: 92.1 kg BP: 148/68 RVIDd: 2.8 cm (< 3.3) IVSd: 1.5 cm (0.6 - 1.1) LVIDd: 3.9 cm (3.9 - 5.3) LVPWd: 1.6 cm (0.6 - 1.1) IVSs: 1.8 cm LVIDs: 2.7 cm LVPWs: 2.0 cm LAESV Index (A-L): 25.51 ml/m Ao Diam: 3.5 cm (2.0 - 3.7) AV Cusp: 1.8 cm (1.5 - 2.6) LA Diam: 3.0 cm (2.7 - 3.8) MV EXCURSION: 18.742 mm (> 18.000) MV EF SLOPE: 164 mm/s (70 - 150) EPSS: 1.0 cm MV E Hu: 0.48 m/s MV DecT: 283 ms MV A Hu: 0.73 m/s MV E/A Ratio: 0.66 RAP: 5.00 mmHg RVSP: 33.26 mmHg FINDINGS -------- Sinus rhythm. This was a technically difficult study with suboptimal apical views. The left ventricular size is normal. There is mild concentric left ventricular hypertrophy. Overa ll left ventricular systolic function is normal with, an EF between 55 - 60 %. The diastolic fillin g pattern is normal for the age of the patient 11.24. The right ventricle is normal in size. Normal LA size by volume 22+/-6 ml/m2. The right atrial size is normal. Lumason used Interatrial and interventricular septum intact. The aortic valve is trileaflet and appears structurally normal. There is no evidence of aortic regu rgitation. There is no evidence of aortic stenosis. Mild mitral regurgitation is present. Mild tricuspid regurgitation present. There is no evidence of pulmonary hypertension. The right v entricular systolic pressure, as measured by Doppler, is 33.26mmHg. There is no pulmonic regurgitation present. The aortic root size is normal. IVC Not well visulized. There is no pericardial effusion. CONCLUSIONS -------- 1. Sinus rhythm. 2. This was a technically difficult study with suboptimal apical views. 3. The left ventricular size is normal. 4. There is mild concentric left ventricular hypertrophy. 5. Overall left ventricular systolic function is normal with, an EF between 55 - 60 %. 6. The diastolic filling pattern is normal for the age of the patient 11.24 7. The right ventricle is normal in size. 8. Normal LA size by volume 22+/-6 ml/m2. 9. The right atrial size is normal. 10. Lumason used 11. Interatrial and interventricular septum intact. 12. The aortic valve is trileaflet and appears structurally normal. 13. There is no evidence of aortic regurgitation. 14. There is no evidence of aortic stenosis. 15. Mild mitral regurgitation is present. 16. Mild tricuspid regurgitation present. 17. There is no evidence of pulmonary hypertension. 18. The right ventricular systolic pressure, as measured by Doppler, is 33.26mmHg. 19. There is no pulmonic regurgitation present. 20. The aortic root size is normal. 21. IVC Not well visulized. 22. There is no pericardial effusion. TOOL FILER: Bernarda Ludwig RDCS
--- NOTE | 2019-06-03 17:53 | P.STRESS ---
- Stress Test Note Stress Test Results/Findings: Exam Performed: NM stress persantine cardiolite Exam Date: 06/03/19 Reason for Exam: CHEST PAIN Height: 5 ft 9 in Weight: 92.17 kg Protocol: PERSANTINE CARDIOLITE Stage: N/A Duration of Exercise: N/A Resting Heart Rate: 72 Resting Blood Pressure: 121/76 Maximum Achieved Heart Rate: 92 Maximum Achieved Blood Pressure: 140/65 85% PMHR: 119 100% PMHR: 140 METS: N/A Technologist Comment: Stress Test Results/Findings: This is a 79-year-old gentleman with history of hypertension, diabetes and s moking history, being evaluated for symptoms of chest pain. Stress data: Baseline EKG showed sinus rhythm with normal DC interval and QRS duration. Blood pressure at rest is 120/876 with pulse rate of 72. A standard dose of Persantine was infused. EKGs taken during and after the infusion did not reveal significant changes to good-sized ischemia. Final impression #1. Negative Persantine stress test #2 report on the nuclear images to begin by the radiologist.
[2019-06-03 20:26] LABS: Glucose,Whole Blood 147 mg/dL (75-99)
[2019-06-03] MEDS: DOXAZOSIN 1 MG TAB PO SCH (20:29)
[2019-06-03] MEDS: CHOLECALCIFEROL 1,000 UNIT TAB PO SCH (20:29)
[2019-06-03] MEDS: PRAVASTATIN SODIUM 20 MG TAB PO SCH (20:30)
[2019-06-04 05:56] LABS: Anisocytosis Slight; Basophils # (A) 0.1 k/uL (0-0.2); Basophils % (A) 1 %; Eosinophils # (A) 0.2 k/uL (0-0.7); Eosinophils % (A) 2 %; HCT 41.6 % (39.0-53.0); HGB 13.6 gm/dL (13.0-17.5); Hypochromasia Slight; Lymphocytes # (A) 1.4 k/uL (1.0-4.8); Lymphocytes % (A) 17 %; MCH 34.3 pg (25.0-35.0); MCHC 32.8 g/dL (31.0-37.0); MCV 104.7 fL (80.0-100.0); Macrocytosis Moderate; Mean Platelet Volume 7.9; Monocytes # (A) 0.4 k/uL (0-1.0); Monocytes % (A) 5 %; Neutrophils # (A) 6.2 k/uL (1.3-7.7); Neutrophils % (A) 73 %; Platelet Count 266 k/uL (150-450); RBC 3.97 m/uL (4.30-5.90); WBC 8.4 k/uL (3.8-10.6)
[2019-06-04 06:07] LABS: ALT 28 U/L (21-72); AST 20 U/L (17-59); African American GFR (CKD) >90 (>60 ml/min/1.73 sqM); Albumin 3.8 g/dL (3.5-5.0); Alkaline Phosphatase 45 U/L (38-126); Anion Gap 8 mmol/L; Blood Urea Nitrogen 15 mg/dL (9-20); Calcium 9.5 mg/dL (8.4-10.2); Carbon Dioxide 23 mmol/L (22-30); Chloride 107 mmol/L (98-107); Glucose 185 mg/dL (74-99); Potassium 4.3 mmol/L (3.5-5.1); Sodium 138 mmol/L (137-145); Total Bilirubin 0.5 mg/dL (0.2-1.3); Total Protein 6.3 g/dL (6.3-8.2)
[2019-06-04 07:29] LABS: Glucose,Whole Blood 196 mg/dL (75-99)
[2019-06-04] MEDS: INSULIN ASPART (NovoLOG) 100 UNIT/ML VIAL SQ SCH ×4 (07:39→21:37)
[2019-06-04] MEDS: CLOPIDOGREL 75 MG TAB PO SCH (07:53)
[2019-06-04] MEDS: FAMOTIDINE 20 MG TAB PO SCH (07:53)
--- NOTE | 2019-06-04 09:38 | P.PN ---
Subjective Progress Note Date: 06/04/19 This is an 79-year-old male patient of Dr. Holguin. Patient presented with complaints of intermittent heartburn-like chest pain over the past 2 weeks reports that has been ongoing lasting a few hours at a time. Patient denies any associated shortness of breath but does admit to feeling fatigued. Patient denies any nausea or vomiting or diaphoresis. Patient does report family history of coronary artery disease in mother. Patient denies any history of heart disease for himself. Patient does have a past medical history of carotid stent, diabetes mellitus, history arthritis, prostate disorder, basal cell carcinoma and ex-smoker. Chest x-ray completed showing no acute cardiopulmonary process. EKG completed showing sinus rhythm with sinus arrhythmia septal infarct age undetermined. Initial troponin negative. Heparin drip has been ordered. Cardiology services have been consulted. At this time patient denies chest pain or shortness of breath. Patient denies nausea vomiting or diarrhea. Patient denies any urinary burning or frequency. On 06/03/2019 patient alert and oriented 3. Patient underwent chemical stress test showing induced left ventricle myocardial ischemia. Discussed with cardiology and PCP. Patient will undergo cardiac catheterization tomorrow with primary back wedger Dr. Jorgensen. Inattentive assessment patient denies chest pain or shortness of breath. Patient denies nausea vomiting or diarrhea. Patient denies any urinary burning or frequency. On 06/04/2019 patient is alert and oriented 3. Patient positive stress test yesterday patient to undergo cardiac catheter Dr. Jorgensen today. Patient has remained chest pain-free. Patient denies shortness breath. Patient denies nausea vomiting or diarrhea. Patient denies any urinary burning or frequency Objective - Vital Signs Vital signs: Vital Signs Temp 97.5 F L 06/04/19 07:57 Pulse 64 06/04/19 08:00 Resp 18 06/04/19 08:00 BP 159/74 06/04/19 07:57 Pulse Ox 96 06/04/19 07:57 Intake & Output 06/03/19 06/04/19 06/04/19 18:59 06:59 18:59 Intake Total 940 Balance 940 Weight 92.17 kg Intake: Oral 840 Other 100 Other: Voiding Method Toilet Toilet Toilet # Voids 1 - Exam Head normocephalic Neck supple Lungs clear to auscultation bilaterally no wheezing or crackles Heart regular rate and rhythm S1-S2, no rub or gallop Abdomen is soft nontender nondistended positive bowel sounds no hepatosplenomegaly Extremities no edema Neuro alert and orientated to 3 - Labs CBC & Chem 7: 06/04/19 05:39 06/04/19 05:39 Labs: Abnormal Lab Results - Last 24 Hours (Table) 06/03/19 06/03/19 06/03/19 Range/Units 12:31 16:24 20:25 RBC (4.30-5.90) m/uL MCV (80.0-100.0) fL RDW (11.5-15.5) % Glucose (74-99) mg/dL POC Glucose (mg/dL) 154 H 206 H 147 H (75-99) mg/dL 06/04/19 06/04/19 06/04/19 Range/Units 05:39 05:39 07:28 RBC 3.97 L (4.30-5.90) m/uL MCV 104.7 H (80.0-100.0) fL RDW 17.0 H (11.5-15.5) % Glucose 185 H (74-99) mg/dL POC Glucose (mg/dL) 196 H (75-99) mg/dL Assessment and Plan Assessment: 1. Chest pain. Chest x-ray completed showing no acute cardiopulmonary process. EKG completed showing normal sinus rhythm with sinus arrhythmia. Troponin negative. Patient started on heparin drip. Serial troponins ordered. Cardiol ogy services consulted. Chemical stress test completed showing pharmacologically induced left ventricle myocardial ischemia. Possible prior infarct with junito-infarct ischemia. Discussed case with cardiology and PE planning for cardiac cath today 06/04/2019 2. History of carotid stent in July 2018. Maintain on aspirin and Plavix 3. History of diabetes mellitus. Metformin on hold. Iron scale insulin ordered 4. History of enlarged prostate 5. History of basal cell carcinoma 6. Ex-smoker. DVT prophylaxis heparin drip. GI prophylaxis Pepcid I performed an examination of the patient and discussed their management with the Nurse Practitioner. I have reviewed the Nurse Practitioner's notes and agree with the documented findings and plan of care
--- NOTE | 2019-06-04 10:35 | P.PN ---
Progress Note - Text Stress test results discussed with the patient and his in detail. We recommend proceeding with cardiac catheterization for definitive diagnosis. I have discussed the risks, benefits and alternative therapies for the above- mentioned procedure and for both sedation/analgesia as well as necessary blood product administration, if indicated, as they pertain to this patient. The patient has indicated understanding and acceptance of the risks and procedures discussed. Questions have been answered appropriately and he is agreeable to move forward with the above stated procedure. This will be performed tomorrow by Dr. Dixon. He may have a light breakfast in the morning.
[2019-06-04 11:52] LABS: Glucose,Whole Blood 164 mg/dL (75-99)
[2019-06-04] MEDS ORDERED: VERAPAMIL 2.5 MG/ML 2 ML AMP ONE (15:35)
[2019-06-04] MEDS ORDERED: LIDOCAINE 1% INJ 10MG/ML (20 ML MDV) ONE (15:35)
[2019-06-04] MEDS ORDERED: HEPARIN SODIUM 1,000 UN/ML (10ML VL) ONE (15:35)
[2019-06-04] MEDS ORDERED: IV FLUID CONTINUATION 500 ML IV ONE (16:07)
[2019-06-04] MEDS ORDERED: MIDAZOLAM 2 MG/2 ML VIAL IV ONE (16:14)
[2019-06-04] MEDS ORDERED: VERAPAMIL SYRINGE (5 MG/10 ML) INTRAARTER ONE (16:15)
[2019-06-04] MEDS: LIDOCAINE 1% INJ 10MG/ML (20 ML MDV) SQ ONE ×2 (16:15→16:23)
[2019-06-04] MEDS ORDERED: HEPARIN SODIUM 1,000 UN/ML (10ML VL) IV ONE (16:17)
[2019-06-04] MEDS ORDERED: HYDROmorphone 1 MG/ML 1 ML SYRINGE ONE (17:07)
[2019-06-04] MEDS ORDERED: HYDROmorphone 1 MG/ML 1 ML SYRINGE IVP ONE (17:10)
[2019-06-04] MEDS ORDERED: IOPAMIDOL-370 125ML BTL INJ ONE (17:14)
[2019-06-04] MEDS ORDERED: CLOPIDOGREL 75 MG TAB ONE (17:21)
[2019-06-04] MEDS ORDERED: CLOPIDOGREL 75 MG TAB PO ONE (17:23)
[2019-06-04] MEDS ORDERED: IOPAMIDOL-370 100ML BTL INJ ONE (17:23)
[2019-06-04] MEDS ORDERED: MAG HYDROX/AL HYDROX/SIMETH 30 ML CUP PO PRN (17:30)
[2019-06-04] MEDS ORDERED: SODIUM CHLORIDE 0.9% 1,000 ML IV SCH (17:30)
[2019-06-04] MEDS ORDERED: ZOLPIDEM 5 MG TAB PO PRN (17:30)
[2019-06-04] MEDS ORDERED: ATROPINE SULFATE 0.1 MG/ML 10ML SYRINGE IV PRN (17:30)
[2019-06-04] MEDS ORDERED: RX INFO: IV CONTRAST WAS GIVEN 1 EACH MISC MISCELLANE PRN (17:30)
[2019-06-04] MEDS ORDERED: NITROGLYCERIN SL TABS 0.4 MG TAB SUBLINGUAL PRN (17:30)
--- NOTE | 2019-06-04 17:50 | P.PCN ---
Date of Procedure: 06/04/19 Operative Findings: HEART CATHETERIZATION AND PERCUTANEOUS CORONARY INTERVENTION Performing physician: Manuelito Dixon M.D. Procedure performed: Selective right and left coronary angiogram Left heart catheterization An atherectomy of the right coronary artery using the orbital atherectomy device (CSI) Successful stenting of the mid right coronary artery using 4.0 x 23 mm Xience FRANCISCO with an excellent results and reduction of stenosis from 99% to 0% Successful placement of transvenous temporary pacemaker Indication: This is an 79-year-old gentleman was diabetes and hypertension and dyslipidemia presented to the hospital complaining of chest discomfort. He was ruled out for acute coronary event. A stress test was performed and revealed inferior ischemia. Because of that heart catheterization was advised Approach: Right common femoral artery Right common femoral vein Complication: None Level of sedation: Moderate with sedation length of 70 minutes Procedure description: After obtaining an informed consent the patient was brought to the cardiac pharmacy laboratory technician. Initially I accessed the right radial artery and I placed a 5-Welsh sheath. I gave the patient 10,000 use of heparin IV and 2 mg of verapamil IV. I had Shanell engaging the right coronary artery from right radial approach because of the extreme tortuosity of the right subclavian artery and because of that the right radial artery access was reported and I decided to go from the right groin. At that point I did access the right common femoral artery using micropuncture technique then I placed a 6-Welsh sheath in the right common femoral artery. After that I did selective right and left coronary angiogram. Selective right coronary angiogram was performed using JR4 catheter and selective left coronary angiogram was performed using JL 3.5 catheters. Left heart catheterization was performed using 6-Welsh pigtail catheter. After that I decided to intervene on the RCA please see a separate section. Selective coronary angiogram: The RCA Is a large caliber vessel and a dominant vessel. Its calcified. The proximal RCA has mild disease only. The mid RCA has eccentric calcified lesion appears to be in the range of 95-99%. The RCA distally has mild disease only and bifurcates into PDA and PLV branches and both appeared to be angiographically normal The LM Has mild disease only. Bifurcates into LCx and LAD. The LCX Is a large caliber vessel and nondominant dominant vessel. The proximal LCx has mild disease only and gives rises into OM1 which is a small to medium caliber vessel seems to be angiographically normal. The mid and distal LCx appears to have mild disease only. The LAD Is a large caliber vessel. The proximal LAD has eccentric lesion appeared to be in the range of 60%. The very proximal LAD gives rises into the first diagonal branch which work as a ramus intermedius and has an ostial disease appears to be in the range of 50%. The mid LAD appears to have mild disease only. It gives rises into the second diagonal branch which has an ostial disease appears to be in the range of 50%. The mid to distal LAD has another plaque appears to be in the range of 40%. Hemodynamic: The left ventricular end-diastolic pressure was about 18 mmHg without significant gradient across aortic valve. PCI of the RCA: Anticoagulation was initiated and completed with heparin. The patient was given 10,000 of heparin at the beginning of the procedure with continuous ACT monitoring throughout the procedure. Because I decided to pursue with an atherectomy of the RCA I decided to place a transvenous temporary pacemaker. I did access the right common femoral vein using micropuncture technique then I placed a 6-Welsh sheath. I did advanced transvenous temporary pacemaker under fluoroscopy guidance to the right ventricle. The pacemaker was set up at a backup of heart rate of 60 bpm After that I decided to engage the RCA using JR4 guide. I did wire the RCA using a long whisper wire. I did exchange my whisper wire into the Viber wire using microcatheter. I did that repairing for rotational atherectomy. After that I did advanced atherectomy device over the Viber wire were I did atherectomy of the mid RCA using fluoroscopy, medial, and high-speed. Subsequently I did balloon angioplasty of the RCA using 3.5 x 15 mm balloon which was inflated under 14 dorota. That was inflated for about 30 seconds. After that I did stenting the mid RCA using 4.0 x 23 mm Xience FRANCISCO where the stent was positioned under fluoroscopy guidance and deployed under 12 dorota for 20 seconds. I postdilated the stent using 4.5 mm balloon which was inflated under 18 dorota for 20 seconds. The following angiogram showed good angiographic results. I did see an area at the distal edge of the stent and initially I thought this is a dissection but after multiple angiographic views it seems to be there was a branch coming from the distal edge of the stent. I attempted advancing 8 mm stent but I was unable. The angiogram of the RCA looks better after I did balloon angioplasty using noncompliant balloon which was 4.5 mm. We a chief TOSHIA-3 flow. The procedure was completed without any complication. Conclusion: Critical disease involving the mid RCA with eccentric and calcified lesion Intermediate to severe disease involving the proximal left anterior descending artery Mild disease involving the left main coronary artery Successful stenting of the RCA with adjunctive use of atherectomy. Plan: Dual antiplatelet therapy Risk factors modifications Follow-up with the patient
[2019-06-04 18:31] LABS: Glucose,Whole Blood 158 mg/dL (75-99)
[2019-06-04] MEDS: DOXAZOSIN 1 MG TAB PO SCH (20:14)
[2019-06-04] MEDS: PRAVASTATIN SODIUM 20 MG TAB PO SCH (20:14)
[2019-06-04] MEDS: LISINOPRIL 2.5 MG TAB PO SCH (20:14)
[2019-06-04] MEDS: CHOLECALCIFEROL 1,000 UNIT TAB PO SCH (20:14)
[2019-06-04 21:21] LABS: Glucose,Whole Blood 204 mg/dL (75-99)
[2019-06-05 06:08] LABS: Glucose,Whole Blood 236 mg/dL (75-99)
[2019-06-05] MEDS: INSULIN ASPART (NovoLOG) 100 UNIT/ML VIAL SQ SCH ×2 (06:22→14:07)
[2019-06-05 07:16] LABS: Anisocytosis Slight; Basophils % (A) 0 %; Eosinophils % (A) 0 %; HCT 44.2 % (39.0-53.0); HGB 14.2 gm/dL (13.0-17.5); Hypochromasia Slight; Lymphocytes # (A) 0.7 k/uL (1.0-4.8); Lymphocytes % (A) 4 %; MCH 33.5 pg (25.0-35.0); MCHC 32.2 g/dL (31.0-37.0); MCV 104.2 fL (80.0-100.0); Macrocytosis Moderate; Mean Platelet Volume 8.1; Monocytes # (A) 0.7 k/uL (0-1.0); Monocytes % (A) 4 %; Neutrophils % (A) 91 %; Platelet Count 257 k/uL (150-450); RBC 4.24 m/uL (4.30-5.90); RDW 17.1 % (11.5-15.5); WBC 17.6 k/uL (3.8-10.6)
[2019-06-05 07:32] LABS: ALT 32 U/L (21-72); AST 32 U/L (17-59); African American GFR (CKD) >90 (>60 ml/min/1.73 sqM); Albumin 3.8 g/dL (3.5-5.0); Alkaline Phosphatase 48 U/L (38-126); Anion Gap 8 mmol/L; Blood Urea Nitrogen 15 mg/dL (9-20); Calcium 9.2 mg/dL (8.4-10.2); Carbon Dioxide 24 mmol/L (22-30); Chloride 106 mmol/L (98-107); Glucose 262 mg/dL (74-99); Sodium 138 mmol/L (137-145); Total Bilirubin 0.8 mg/dL (0.2-1.3); Total Protein 6.3 g/dL (6.3-8.2)
[2019-06-05 07:33] LABS: Potassium 4.4 mmol/L (3.5-5.1)
--- NOTE | 2019-06-05 08:42 | P.PN ---
Subjective Progress Note Date: 06/05/19 This is a pleasant 79-year-old male past medical history significant for diabetes mellitus, peripheral vascular disease with bilateral carotid stenosis and recent stent placement to the left subclavian by Dr. Dixon July 2018, former nicotine dependence and osteoarthritis. He presented to the hospital with symptoms of chest discomfort, underwent a Persantine stress test which revealed possible prior infarct with junito-infarction ischemia and for this reason was taken to the cardiac catheterization lab. Patient was found to have a heavily calcified right coronary artery, he underwent arthrectomy with subsequent angioplasty and stenting of the RCA. Patient was seen and examined this morning, doing well, denies any chest pain or difficulty in breathing. He has been up ambulating without any difficulty. Objective - Vital Signs Vital signs: Vital Signs Temp 97.8 F 06/05/19 03:56 Pulse 104 H 06/05/19 03:56 Resp 16 06/05/19 03:56 BP 106/67 06/05/19 03:56 Pulse Ox 93 L 06/05/19 03:56 Intake & Output 06/04/19 06/05/19 06/05/19 18:59 06:59 18:59 Intake Total 250 195 Output Total 200 Balance 50 195 Weight 87.4 kg Intake: IV 250 Intake, IV Titration 75 Amount Sodium Chloride 0.9% 1, 75 000 ml @ 75 mls/hr IV . [id number] [facility] Rx#:[id number] Oral 120 Output: Urine 200 Other: Voiding Method Toilet Toilet # Voids 4 1,125 - Exam GENERAL: This is a 79-year-old male in no apparent distress at the time of my examination. HEENT: Head is atraumatic, normocephalic. Pupils are equal, round. Sclerae anicteric. Conjunctivae are clear. Mucous membranes of the mouth are moist. Neck is supple. There is no jugular venous distention. No carotid bruit is heard. LUNGS: Clear to auscultation no wheezes, rales or rhonchi. No chest wall tenderness is noted on palpation or with deep breathing. HEART: Regular rate and rhythm with systolic ejection murmur at the base, no rubs or gallops. S1 and S2 heard. ABDOMEN: Soft, nontender. Bowel sounds are heard. No organomegaly noted. EXTREMITIES: No evidence of peripheral edema and no calf tenderness noted. Right radial site and right groin are soft, no evidence of any hematoma. VASCULAR: Radial and dorsalis pedis pulses palpated, no evidence of clubbing. NEUROLOGIC: Patient is awake, alert and oriented x3. - Labs CBC & Chem 7: 06/05/19 06:15 06/05/19 06:15 Labs: Abnormal Lab Results - Last 24 Hours (Table) 06/04/19 06/04/19 06/04/19 Range/Units 11:51 18:28 21:20 WBC (3.8-10.6) k/uL RBC (4.30-5.90) m/uL MCV (80.0-100.0) fL RDW (11.5-15.5) % Neutrophils # (1.3-7.7) k/uL Lymphocytes # (1.0-4.8) k/uL Glucose (74-99) mg/dL POC Glucose (mg/dL) 164 H 158 H 204 H (75-99) mg/dL 06/05/19 06/05/19 06/05/19 Range/Units 06:07 06:15 06:15 WBC 17.6 H (3.8-10.6) k/uL RBC 4.24 L (4.30-5.90) m/uL MCV 104.2 H (80.0-100.0) fL RDW 17.1 H (11.5-15.5) % Neutrophils # 16.0 H (1.3-7.7) k/uL Lymphocytes # 0.7 L (1.0-4.8) k/uL Glucose 262 H (74-99) mg/dL POC Glucose (mg/dL) 236 H (75-99) mg/dL Assessment and Plan Plan: Assessment and plan #1 chest pain, positive stress test, subsequent arthrectomy with angioplasty and stenting of the right coronary artery #2 hyperlipidemia #3 diabetes #4 peripheral vascular disease, recent left subclavian stenting #5 former nicotine Plan From cardiology's perspective, patient may be able to be discharged home today. We'll make him a follow-up appointment to see Dr. Jorgensen in the office in one week. Patient will be discharged home on aspirin 81 mg daily, Plavix 75 mg daily, metoprolol 12-1/2 mg daily, lisinopril 2-1/2 mg at noon daily, nitroglycerin as needed for chest pain. DNP note has been reviewed, I agree with a documented findings and plan of care. Patient was seen and examined.
[2019-06-05] MEDS: CLOPIDOGREL 75 MG TAB PO SCH (08:48)
[2019-06-05] MEDS: FAMOTIDINE 20 MG TAB PO SCH (08:48)
[2019-06-05] MEDS ORDERED: METOPROLOL TARTRATE 12.5 MG TAB PO SCH (09:00)
[2019-06-05] MEDS ORDERED: ASPIRIN 81 MG PO SCH (09:00)
--- NOTE | 2019-06-05 11:00 | XR ---
EXAMINATION TYPE: XR chest 2V DATE OF EXAM: 06/05/2019 COMPARISON: Chest x-ray 06/02/2019 HISTORY: Leukocytosis, chest pain and coronary artery disease TECHNIQUE: Frontal and lateral views of the chest are obtained. FINDINGS: There is no focal air space opacity, pleural effusion, or pneumothorax seen. The cardiac silhouette size is within normal limits. The aorta is dense. There are coronary artery calcificatio ns present. Surgical clips present in the right upper quadrant. The osseous structures are intact. IMPRESSION: No acute cardiopulmonary process.
[2019-06-05 11:47] LABS: Appearance,Urine Clear (Clear); Bilirubin,Urine Negative (Negative); Blood,Urine Moderate (Negative); Color,Urine Yellow; Glucose,Urine (UA) 4+ (Negative); Hyaline Casts,Urine 7 /lpf (0-2); Ketones,Urine 1+ (Negative); Leukocyte Esterase,Urine Negative (Negative); Mucus,Urine Many /hpf; Nitrite,Urine Negative (Negative); PH, Urine 5.5 (5.0-8.0); Protein,Urine Trace (Negative); RBC,Urine 22 /hpf (0-5); Specific Gravity,Urine 1.038 (1.001-1.035); Squamous Epithelial Cell,Urine 1 /hpf (0-4); Urobilinogen,Urine <2.0 mg/dL (<2.0); WBC,Urine 4 /hpf (0-5)
[2019-06-05 11:54] LABS: Glucose,Whole Blood 232 mg/dL (75-99)
[2019-06-05 12:55] VITALS: BP 131/61; PULSE 78; RESP 16; TEMP 97.6
[2019-06-05 13:31] VITALS: BMI 28.4
--- NOTE | 2019-06-05 14:16 | P.DS ---
Providers Date of admission: 06/03/19 16:00 Expected date of discharge: 06/05/19 Attending physician: Nithin Gifford Consults: 06/02/19 12:53 Consult Physician Urgent Consulting Provider: Travis Arriaga Consult Reason/Comments: Unstable angina Do you want consulting provider notified?: Yes 06/04/19 17:30 Consult Physician Routine Consulting Provider: Travis Arriaga Consult Reason/Comments: Post Interventional patient Do you want consulting provider notified?: Already Contacted Primary care physician: Dayana Holguin Hospital Course: Discharge diagnosis 1. Chest pain. Chest x-ray completed showing no acute cardiopulmonary process. EKG completed showing normal sinus rhythm with sinus arrhythmia. Troponin negative. Patient started on heparin drip. Serial troponins ordered. Cardiology services consulted. Chemical stress test completed showing pharmacologically induced left ventricle myocardial ischemia. Possible prior infarct with junito-infarct ischemia. Discussed case with cardiology and PE planning for cardiac cath today 06/04/2019. Patient underwent cardiac cath and received a stent to the RCA. Discussed case with cardiology and PCP. Patient will be discharged on Plavix in which she artery takes, baby aspirin, increase dose of lisinopril and Lopressor. 2. History of carotid stent in July 2018. Maintain on aspirin and Plavix 3. History of diabetes mellitus. Metformin on hold. Iron scale insulin ordered. Patient to resume metformin on 06/07/2019 due to contrast given with cardiac cath 4. History of enlarged prostate 5. History of basal cell carcinoma 6. Ex-smoker. 7. Leukocytosis. Patient had increased white blood cell count to 17.6. Chest x-ray completed showing no acute cardiopulmonary process. UA showing no signs of infection. Patient denies any acute symptoms. Right groin site is clean dry and intact no signs of abscess. Patient denies any upper respiratory symptoms. Patient denies cough or shortness of breath. Patient denies nausea vomiting or diarrhea. Patient instructed to monitor groin site closely and to present to ER is signs of infection occur or patient has temps. Repeat CBC has been ordered for 2 days Hospital course This is an 79-year-old male patient of Dr. Holguin. Patient presented with complaints of intermittent heartburn-like chest pain over the past 2 weeks reports that has been ongoing lasting a few hours at a time. Patient denies any associated shortness of breath but does admit to feeling fatigued. Patient denies any nausea or vomiting or diaphoresis. Patient does report family history of coronary artery disease in mother. Patient denies any history of heart disease for himself. Patient does have a past medical history of carotid stent, diabetes mellitus, history arthritis, prostate disorder, basal cell carcinoma and ex-smoker. Chest x-ray completed showing no acute cardiopulmonary process. EKG completed showing sinus rhythm with sinus arrhythmia septal infarct age undetermined. Initial troponin negative. Heparin drip has been ordered. Cardiology services have been consulted. At this time patient denies chest pain or shortness of breath. Patient denies nausea vomiting or diarrhea. Patient denies any urinary burning or frequency. On 06/03/2019 patient alert and oriented 3. Patient underwent chemical stress test showing induced left ventricle myocardial ischemia. Discussed with cardiology and PCP. Patient will undergo cardiac catheterization tomorrow with primary tariff supervisor Dr. Jorgensen. Inattentive assessment patient denies chest pain or shortness of breath. Patient denies nausea vomiting or diarrhea. Patient denies any urinary burning or frequency. On 06/04/2019 patient is alert and oriented 3. Patient positive stress test yesterday patient to undergo cardiac catheter Dr. Jorgensen today. Patient has remained chest pain-free. Patient denies shortness breath. Patient denies nausea vomiting or diarrhea. Patient denies any urinary burning or frequency On 06/05/2019 patient alert and oriented 3. Patient is very eager to go home. Patient underwent cardiac catheterization yesterday with Dr. Jorgensen and received a stent to the RCA. Discussed case with cardiology STAGING TECHNICIAN Dr. Oliveira patient will be discharged home on Plavix in which he has for for carotid stent, baby aspirin, increase dose of lisinopril and Lopressor. patient did have elevated white count this a.m. patient denies any signs of acute infection. UA negative chest x-ray negative. Patient instructed to monitor for signs of infection and presented to the ER if symptoms present. Repeat CBC has been ordered for 2 days. At this time patient denies chest pain or shortness of breath. Patient denies nausea vomiting or diarrhea. Patient denies any urinary burning or frequency. I performed an examination of the patient and discussed their management with the Nurse Practitioner. I have reviewed the Nurse Practitioner's notes and agree with the documented findings and plan of care Patient Condition at Discharge: Stable Plan - Discharge Summary Discharge Rx Participant: No New Discharge Prescriptions: New Aspirin 81 mg PO DAILY 30 Days #30 chew Metoprolol Tartrate [Lopressor] 12.5 mg PO DAILY 30 Days #30 tab Lisinopril [Zestril] 2.5 mg PO W/LUNCH 30 Days #30 tab Continue metFORMIN HCL [Glucophage Xr] 1,500 mg PO W/SUPPER Doxazosin [Cardura] 1 mg PO HS Cholecalciferol [Vitamin D3 (25 Mcg = 1000 Iu)] 4,000 unit PO HS Pravastatin Sodium [Pravachol] 5 mg PO HS Clopidogrel [Plavix] 75 mg PO DAILY #90 tab Discontinued Lisinopril [Zestril] 1.25 mg PO W/SUPPER Aspirin 325 mg PO DAILY #90 tab Discharge Medication List Cholecalciferol [Vitamin D3 (25 Mcg = 1000 Iu)] 4,000 unit PO HS 05/10/16 [History] Doxazosin [Cardura] 1 mg PO HS 05/10/16 [History] metFORMIN HCL [Glucophage Xr] 1,500 mg PO W/SUPPER 05/10/16 [History] Pravastatin Sodium [Pravachol] 5 mg PO HS 11/22/16 [History] Clopidogrel [Plavix] 75 mg PO DAILY #90 tab 08/01/18 [Rx] Aspirin 81 mg PO DAILY 30 Days #30 chew 06/05/19 [Rx] Lisinopril [Zestril] 2.5 mg PO W/LUNCH 30 Days #30 tab 06/05/19 [Rx] Metoprolol Tartrate [Lopressor] 12.5 mg PO DAILY 30 Days #30 tab 06/05/19 [Rx] Follow up Appointment(s)/Referral(s): Dayana Holguin MD [Primary Care Provider] - 06/10/19 1:00 pm Manuelito Dixon MD [STAFF PHYSICIAN] - 06/17/19 1:15 pm (Sunday) Patient Instructions/Handouts: Heart Healthy Diet (DC), Coronary Intravascular Stent Placement (DC) Activity/Diet/Wound Care/Special Instructions: RX delivery. Increased dose of lisinopril, new prescription needed of metoprolol. Resume metformin on June 07 AM. Discharge Disposition: HOME SELF-CARE
[2019-06-05] MEDS ORDERED: LISINOPRIL 2.5 MG TAB PO SCH (17:30)
--- NOTE | 2019-06-06 12:14 | EST ---
- Stress Test Note Stress Test Results/Findings: Exam Performed: NM stress persantine cardiolite Exam Date: 06/03/19 Reason for Exam: CHEST PAIN Height: 5 ft 9 in Weight: 92.17 kg Protocol: PERSANTINE CARDIOLITE Stage: N/A Duration of Exercise: N/A Resting Heart Rate: 72 Resting Blood Pressure: 121/76 Maximum Achieved Heart Rate: 92 Maximum Achieved Blood Pressure: 140/65 85% PMHR: 119 100% PMHR: 140 METS: N/A Technologist Comment: Stress Test Results/Findings: This is a 79-year-old gentleman with history of hypertension, diabetes and smoking history, being evaluated for symptoms of chest pain. Stress data: Baseline EKG showed sinus rhythm with normal MA interval and QRS duration. Blood pressure at rest is 120/876 with pulse rate of 72. A standard dose of Persantine was infused. EKGs taken during and after the infusion did not reveal significant changes to good-sized ischemia. Final impression #1. Negative Persantine stress test #2 report on the nuclear images to begin by the radiologist. SHANNAN
--- NOTE | 2019-06-11 17:17 | CDI ---
Documentation Clarification Form Date: 06/11/19 From: Ivis Upton Phone: If you have a question about this query, please contact Pinky Jorge Embedded [employer] Developer at [phone] between 8am and 5pm. Admit Date: 06/03/19 Discharge Date:06/05/19 Patient Name: Rah Howard Visit Number: [id number] ATTENTION: The Clinical Documentation Specialists (CDI) and [facility] Coding Staff appreciate your assistance in clarifying documentation. Please respond to the clarification below the line at the bottom and electronically sign. The CDI & [facility] Coding staff will review the response and follow-up if needed. Please note: Queries are made part of the Legal Health Record. If you have any questions, please contact the author of this message via ITS. Dear Dr. Nithin Gifford The patient presented with chest pain. History/Risk Factors: Hypertension, hypercholesterolemia, PVD Clinical Indicators: fatigue, chest pain. Lab findings: Troponin I - <0.012, <0.012, <0.012 Radiology findings: Chest x-ray 06/02 - No acute cardiopulmonary process. P.Stress: Negative persantine stress test NM stress persantine cardiolit: Pharmacologically induced left ventricular myocardial ischemia. Possible prior infarct with junito-infarct ischemia. Vital Signs: T. 98.0, P. 64, R. 18, BP 144/75 Other Clinical Indicators: Dr. Dixon documented in the heart cath report critical disease involving the mid RCA with eccentric and calcified lesion intermediate to severe disease involving the proximal left anterior descending artery. Mild disease involving the left main coronary artery. Treatment: Heart cath with stenting of the RCA with adjunctive use atherectomy. Consults: Underlying coronary artery disease is likely given his significant history of peripheral vascular disease however symptoms are not suggestive of unstable angina. In your professional opinion, can you please clarify the cause of the chest pain? Chest pain Coronary artery disease with angina (specify type) without angina Other, please specify Unable to determine chest pain secondary to coronary artery disease recieving stent to RCA MTDD
== END 2019-06-05 14:41 | disposition home or self-care (01) | DRG 247 ==
LOC: EC 10:41 → 1SOBS 12:53 → OBSVTOIN 06-03 16:00 → 3SCARD 06-04 18:07
PROVIDERS: ADMIT Internal Medicine; ATTEND Internal Medicine
PROC: 027034Z Dilation of Coronary Artery, One Artery with Drug-eluting Intraluminal Device, Percutaneous Approach (ICD-10-PCS; principal; 2019-06-03)
PROC: X2C0361 Extirpation of Matter from Coronary Artery, One Artery using Orbital Atherectomy Technology, Percutaneous Approach, New Technology Group 1 (ICD-10-PCS; 2019-06-03)
PROC: 4A023N7 Measurement of Cardiac Sampling and Pressure, Left Heart, Percutaneous Approach (ICD-10-PCS; 2019-06-03)
PROC: B2111ZZ Fluoroscopy of Multiple Coronary Arteries using Low Osmolar Contrast (ICD-10-PCS; 2019-06-03)
DX: I25.10 Atherosclerotic heart disease of native coronary artery without angina pectoris (principal); E11.51 Type 2 diabetes mellitus with diabetic peripheral angiopathy without gangrene; I65.23 Occlusion and stenosis of bilateral carotid arteries; D72.829 Elevated white blood cell count, unspecified; E78.00 Pure hypercholesterolemia, unspecified; E78.5 Hyperlipidemia, unspecified; I10 Essential (primary) hypertension; N40.0 Benign prostatic hyperplasia without lower urinary tract symptoms; M19.90 Unspecified osteoarthritis, unspecified site; Z79.02 Long term (current) use of antithrombotics/antiplatelets; Z79.82 Long term (current) use of aspirin; Z79.84 Long term (current) use of oral hypoglycemic drugs; Z79.899 Other long term (current) drug therapy; Z88.8 Allergy status to other drugs, medicaments and biological substances; Z85.828 Personal history of other malignant neoplasm of skin; Z87.442 Personal history of urinary calculi; Z87.891 Personal history of nicotine dependence; Z90.49 Acquired absence of other specified parts of digestive tract; Z82.49 Family history of ischemic heart disease and other diseases of the circulatory system
CPT/HCPCS: 36415; 71046; 78452; 80053; 80061; 81001; 83735; 84484; 85025; 85610; 85730; 93005; 93017; 93306; 93458; 96365; 96376; 99291; C1874

== ENCOUNTER 2020-10-31 05:46 | Emergency (ER) | payer MEDICARE, OTHER ==
[2020-10-31 05:51] VITALS: BP 172/80; PULSE 77; RESP 19; TEMP 97.7
[2020-10-31] MEDS ORDERED: PROPARACAINE 0.5% OPHTH DROPS 15 ML BTL LEFT EYE STA (05:58)
[2020-10-31] MEDS ORDERED: FLUORESCEIN STRIPS 1 MG STRIP LEFT EYE ONE (05:58)
--- NOTE | 2020-10-31 06:52 | ED ---
Eye Problem HPI - General Chief complaint: Eye Problems Stated complaint: Right eye pain Time Seen by Provider: 10/31/20 05:56 Source: patient, RN notes reviewed Mode of arrival: ambulatory Limitations: no limitations - History of Present Illness Initial comments: This an 80-year-old male presents emergency Department chief complaint of blurred vision of his right eye. Patient states his started yesterday afternoon which is worsened this morning when he woke up. Patient states that he was working on his vehicle and thought he may have gotten something PG 40 in his eye but states he does not exactly remember he flushes I have several times when he started having irritation to his right eye. He states yesterday he had some black spots throughout the vision but states only lasted short period of time. He states it's only blurry he has no areas where he cannot see anything such as a black line or an area that is completely blacked out. Patient states he has no pain currently and had no pain ever with this. Denies any headache dizziness. Patient states he wears glasses for reading but states that he does not have any other corrective lenses no prior eye surgeries. Patient states he had night him one week ago. Patient has no history of glaucoma. - Related Data Home Medications Medication Instructions Recorded Confirmed Cholecalciferol [Vitamin D3 (25 4,000 unit PO HS 05/10/16 06/02/19 Mcg = 1000 Iu)] Doxazosin [Cardura] 1 mg PO HS 05/10/16 06/02/19 metFORMIN HCL [Glucophage Xr] 1,500 mg PO W/SUPPER 05/10/16 06/02/19 Pravastatin Sodium [Pravachol] 5 mg PO HS 11/22/16 06/02/19 Previous Rx's Medication Instructions Recorded Clopidogrel [Plavix] 75 mg PO DAILY #90 tab 08/01/18 Aspirin 81 mg PO DAILY 30 Days #30 chew 06/05/19 Metoprolol Tartrate [Lopressor] 12.5 mg PO DAILY 30 Days #30 tab 06/05/19 lisinopriL [Zestril] 2.5 mg PO W/LUNCH 30 Days #30 tab 06/05/19 Allergies Allergy/AdvReac Type Severity Reaction Status Date / Time tamsulosin [From Flomax] Allergy Rash/Hives Verified 10/31/20 05:51 Review of Systems ROS Statement: Those systems with pertinent positive or pertinent negative responses have been documented in the HPI. ROS Other: All systems not noted in ROS Statement are negative. Past Medical History Past Medical History: Cancer, Diabetes Mellitus, Osteoarthritis (OA), Prostate Disorder Additional Past Medical History / Comment(s): Enlarged prostate, basal cell carcinoma top of head, kidney stones, blocked nicole carotid arteries, 07/31/2018 Stent to (L)subclav History of Any Multi-Drug Resistant Organisms: None Reported Past Surgical History: Back Surgery, Cholecystectomy, Orthopedic Surgery Additional Past Surgical History / Comment(s): nicole carpel tunnel,heel spur,basal cell removed from scalp Past Anesthesia/Blood Transfusion Reactions: No Reported Reaction Past Psychological History: No Psychological Hx Reported Smoking Status: Never smoker Past Alcohol Use History: Occasional Past Drug Use History: None Reported - Past Family History Father History Unknown: Yes Mother Family Medical History: No Reported History General Exam General appearance: alert, in no apparent distress Head exam: Present: atraumatic, normocephalic, normal inspection Eye exam: Present: PERRL, EOMI, conjunctival injection (Minimal right). Absent: normal appearance, scleral icterus, periorbital swelling, periorbital tenderness Pupils: Present: normal accommodation Expanded Eyelids: Normal Inspection: Bilateral Pupils: Regular, Round: Bilateral Sclera/Conjunctival: Injection: Right (Minimal) Anterior chamber: Normal Inspection: Bilateral Visual acuity (R) = 20/: 200 Visual acuity (L) = 20/: 50 With correction: No IOP (R) in mmH IOP (L) in mmH IOP measured with: Tonopen ENT exam: Present: normal exam, mucous membranes moist Neck exam: Present: normal inspection, full ROM. Absent: tenderness, meningismus, lymphadenopathy Respiratory exam: Present: normal lung sounds bilaterally. Absent: respiratory distress, wheezes, rales, rhonchi, stridor Cardiovascular Exam: Present: regular rate, normal rhythm, normal heart sounds. Absent: systolic murmur, diastolic murmur, rubs, gallop, clicks Neurological exam: Present: alert, oriented X3 Skin exam: Present: warm, dry, intact, normal color. Absent: rash Course Vital Signs 10/31/20 05:48 Temperature 97.7 F Pulse Rate 77 Respiratory 19 Rate Blood Pressure 172/80 O2 Sat by Pulse 98 Oximetry Medical Decision Making - Medical Decision Making This an 80-year-old male presented for right eye blurred vision. Patient has 20/200 vision right eye with a pressure 22. I did contact on-call ophthalmology Dr. Rizvi who evaluated the patient at 10:30 AM this morning in his office. He did recommend drawing an ESR lab. Patient will be discharged to his office. Address was provided. Disposition Clinical Impression: Blurred vision, right eye Disposition: HOME SELF-CARE Condition: Stable Instructions (If sedation given, give patient instructions): Blurred Vision (ED) Additional Instructions: Go to Dr. Araiza's office at 10:30 AM this morning.Please return to the Emergency Department if symptoms worsen or any other concerns. Is patient prescribed a controlled substance at d/c from ED?: No Referrals: Dayana Holguin MD [Primary Care Provider] - 1-2 days Paulette Haley MD [STAFF PHYSICIAN] - 1-2 days Time of Disposition: 07:10
== END 2020-10-31 07:21 | disposition home or self-care (01) ==
LOC: EC 05:46
DX: H53.8 Other visual disturbances (principal); E11.9 Type 2 diabetes mellitus without complications; M19.90 Unspecified osteoarthritis, unspecified site; Z79.02 Long term (current) use of antithrombotics/antiplatelets; Z79.82 Long term (current) use of aspirin; Z79.84 Long term (current) use of oral hypoglycemic drugs; Z85.828 Personal history of other malignant neoplasm of skin
CPT/HCPCS: 36415; 85652; 99284

== ENCOUNTER 2020-10-31 10:45 | Inpatient (IN) | payer MEDICARE, OTHER ==
--- NOTE | 2020-10-31 11:30 | ED ---
General Adult HPI - General Source: patient, RN notes reviewed Mode of arrival: ambulatory Limitations: no limitations <Kian David - Last Filed: 10/31/20 12:44> <Luis Vail - Last Filed: 10/31/20 13:09> - General Chief complaint: Neuro Symptoms/Deficit Stated complaint: stroke-sent by PCP Time Seen by Provider: 10/31/20 10:53 - History of Present Illness Initial comments: This 80-year-old male presents emergency Department chief complaint of possible stroke. Patient states that he was seen here earlier today for right eye blurred vision. Patient was evaluated by company secretary this morning some back in secondary to ischemic colitis. Patient was evaluated by Dr. Araiza. Patient continues to have no headache or dizziness. Weakness chest pain shortness of breath. Patient does have a history of heart disease with stents, known carotid narrowing. Patient denies any nausea vomiting. No fevers or chills. Patient states that he does take Plavix and aspirin. (Kian David) - Related Data Home Medications Medication Instructions Recorded Confirmed Cholecalciferol [Vitamin D3 (25 100 mcg PO AC-SUPPER 05/10/16 10/31/20 Mcg = 1000 Iu)] Doxazosin [Cardura] 1 mg PO HS 05/10/16 10/31/20 Pravastatin Sodium [Pravachol] 10 mg PO HS 11/22/16 10/31/20 Aspirin [[place] Aspirin EC] 162 mg PO DAILY 10/31/20 10/31/20 Magnesium Oxide [Mag-Ox] 400 mg PO HS 10/31/20 10/31/20 Metoprolol Tartrate [Lopressor] 12.5 mg PO DAILY 10/31/20 10/31/20 lisinopriL [Zestril] 1.25 mg PO AC-SUPPER 10/31/20 10/31/20 metFORMIN HCL ER [Glucophage Xr] 1,000 mg PO AC-BID 10/31/20 10/31/20 Allergies Allergy/AdvReac Type Severity Reaction Status Date / Time tamsulosin [From Flomax] Allergy Rash/Hives Verified 10/31/20 12:52 Review of Systems ROS Other: All systems not noted in ROS Statement are negative. <Kian David - Last Filed: 10/31/20 12:44> ROS Other: All systems not noted in ROS Statement are negative. <Luis Vail - Last Filed: 10/31/20 13:09> ROS Statement: Those systems with pertinent positive or pertinent negative responses have been documented in the HPI. Past Medical History Past Medical History: Cancer, Diabetes Mellitus, Osteoarthritis (OA), Prostate Disorder Additional Past Medical History / Comment(s): Enlarged prostate, basal cell carcinoma top of head, kidney stones, blocked nicole carotid arteries, 07/31/2018 Stent to (L)subclav History of Any Multi-Drug Resistant Organisms: None Reported Past Surgical History: Back Surgery, Cholecystectomy, Orthopedic Surgery Additional Past Surgical History / Comment(s): nicole carpel tunnel,heel spur,basal cell removed from scalp Past Anesthesia/Blood Transfusion Reactions: No Reported Reaction Past Psychological History: No Psychological Hx Reported Smoking Status: Never smoker Past Alcohol Use History: Occasional Past Drug Use History: None Reported - Past Family History Father History Unknown: Yes Mother Family Medical History: No Reported History <Kian David - Last Filed: 10/31/20 12:44> General Exam General appearance: alert, in no apparent distress Head exam: Present: atraumatic, normocephalic, normal inspection Eye exam: Present: normal appearance, PERRL, EOMI. Absent: scleral icterus, conjunctival injection, periorbital swelling ENT exam: Present: normal exam, normal oropharynx, mucous membranes moist Neck exam: Present: normal inspection, full ROM. Absent: tenderness, meningismus, lymphadenopathy Respiratory exam: Present: normal lung sounds bilaterally. Absent: respiratory distress, wheezes, rales, rhonchi, stridor Cardiovascular Exam: Present: regular rate, normal rhythm, normal heart sounds. Absent: systolic murmur, diastolic murmur, rubs, gallop, clicks GI/Abdominal exam: Present: soft, normal bowel sounds. Absent: distended, tenderness, guarding, rebound, rigid Neurological exam: Present: alert, oriented X3, CN II-XII intact, reflexes normal. Absent: motor sensory deficit Skin exam: Present: warm, dry, intact, normal color. Absent: rash <Kian David - Last Filed: 10/31/20 12:44> Course <Luis Vail - Last Filed: 10/31/20 13:09> Vital Signs 10/31/20 10/31/20 10:46 12:30 Temperature 97.5 F L Pulse Rate 85 86 Respiratory 18 16 Rate Blood Pressure 210/83 154/84 O2 Sat by Pulse 99 99 Oximetry - Reevaluation(s) Reevaluation #1: 10/31/20 13:08 PA: I did personally evaluate the patient with evaluation on his second. He did present from the company secretary office for further evaluation of loss of vision the right eye. He does state this seemed to start 2 days ago progressing into this morning. CT negative for acute findings at this time patient will be admitted for further evaluation and treatment. (Luis Vail) Medical Decision Making - Lab Data Result diagrams: 10/31/20 11:24 10/31/20 11:24 <Kian David - Last Filed: 10/31/20 12:44> - Lab Data Result diagrams: 10/31/20 11:24 10/31/20 11:24 <Luis Vail - Last Filed: 10/31/20 13:09> - Medical Decision Making CT does not show any evidence of CVA or mass this time. Patient does have ischemic optic neuritis case discussed and updated with company secretary recommended further workup including carotids, cardiac and neurology. (Kian David) - Lab Data Lab Results 10/31/20 10/31/20 10/31/20 Range/Units 11:24 11:24 11:24 WBC 9.0 (3.8-10.6) k/uL RBC 4.20 L (4.30-5.90) m/uL Hgb 13.9 (13.0-17.5) gm/dL Hct 43.4 (39.0-53.0) % MCV 103.4 H (80.0-100.0) fL MCH 33.0 (25.0-35.0) pg MCHC 31.9 (31.0-37.0) g/dL RDW 18.0 H (11.5-15.5) % Plt Count 234 (150-450) k/uL MPV 10.1 Neutrophils % 75 % Lymphocytes % 16 % Monocytes % 5 % Eosinophils % 2 % Basophils % 1 % Neutrophils # 6.7 (1.3-7.7) k/uL Lymphocytes # 1.4 (1.0-4.8) k/uL Monocytes # 0.5 (0-1.0) k/uL Eosinophils # 0.1 (0-0.7) k/uL Basophils # 0.1 (0-0.2) k/uL Anisocytosis Slight Macrocytosis Moderate Sodium 138 (137-145) mmol/L Potassium 4.4 (3.5-5.1) mmol/L Chloride 105 (98-107) mmol/L Carbon Dioxide 25 (22-30) mmol/L Anion Gap 8 mmol/L BUN 17 (9-20) mg/dL Creatinine 0.85 (0.66-1.25) mg/dL Est GFR (CKD-EPI)AfAm >90 (>60 ml/min/1.73 sqM) Est GFR (CKD-EPI)NonAf 82 (>60 ml/min/1.73 sqM) Glucose 230 H (74-99) mg/dL Calcium 9.3 (8.4-10.2) mg/dL Total Bilirubin 0.7 (0.2-1.3) mg/dL AST 25 (17-59) U/L ALT 21 (4-49) U/L Alkaline Phosphatase 51 (38-126) U/L Troponin I <0.012 (0.000-0.034) ng/mL C-Reactive Protein <5.0 (<10.0) mg/L Total Protein 6.5 (6.3-8.2) g/dL Albumin 4.0 (3.5-5.0) g/dL TSH 0.861 (0.465-4.680) mIU/L Disposition <Kian David - Last Filed: 10/31/20 12:44> <Luis Vail - Last Filed: 10/31/20 13:09> Clinical Impression: Ischemic optic neuritis of right eye Disposition: ADMITTED IP TO THIS HOSP Referrals: Dayana Holguin MD [Primary Care Provider] - 1-2 days
[2020-10-31 11:43] LABS: Anisocytosis Slight; Basophils # (A) 0.1 k/uL (0-0.2); Basophils % (A) 1 %; Eosinophils # (A) 0.1 k/uL (0-0.7); Eosinophils % (A) 2 %; HCT 43.4 % (39.0-53.0); HGB 13.9 gm/dL (13.0-17.5); Lymphocytes # (A) 1.4 k/uL (1.0-4.8); Lymphocytes % (A) 16 %; MCHC 31.9 g/dL (31.0-37.0); MCV 103.4 fL (80.0-100.0); Macrocytosis Moderate; Mean Platelet Volume 10.1; Monocytes # (A) 0.5 k/uL (0-1.0); Monocytes % (A) 5 %; Neutrophils # (A) 6.7 k/uL (1.3-7.7); Neutrophils % (A) 75 %; Platelet Count 234 k/uL (150-450)
[2020-10-31 11:48] LABS: ALT 21 U/L (4-49); AST 25 U/L (17-59); African American GFR (CKD) >90 (>60 ml/min/1.73 sqM); Alkaline Phosphatase 51 U/L (38-126); Anion Gap 8 mmol/L; Blood Urea Nitrogen 17 mg/dL (9-20); C Reactive Protein <5.0 mg/L (<10.0); Calcium 9.3 mg/dL (8.4-10.2); Carbon Dioxide 25 mmol/L (22-30); Chloride 105 mmol/L (98-107); Glucose 230 mg/dL (74-99); Non-African American GFR(CKD) 82 (>60 ml/min/1.73 sqM); Potassium 4.4 mmol/L (3.5-5.1); Sodium 138 mmol/L (137-145); Total Bilirubin 0.7 mg/dL (0.2-1.3); Total Protein 6.5 g/dL (6.3-8.2)
--- NOTE | 2020-10-31 11:55 | CT ---
EXAMINATION TYPE: CT brain wo con DATE OF EXAM: 10/31/2020 COMPARISON: None INDICATION: Stroke-sent by PCP; Ischemic optic neuritis DLP: 1188.4 mGycm, Automated exposure control for dose reduction was used. CONTRAST: None CT of the brain is performed utilizing 3 mm thick sections through the posterior fossa and 3 mm thick sections through the remaining calvarium. Study is performed within 24 hours of arrival to the hosp ital. No abnormal hyperdensity is present to suggest an acute intracranial hemorrhage. No mass lesion is evident. Physiologic basal ganglion calcifications present bilaterally. No acute infarcts are evident. There is some minimal periventricular white matter hypodensity, likely on the basis of chronic white matter ischemic changes. Ventricles and sulci are mildly prominent for the patient age. Paranasal sinuses and mastoid air cells within the [id number] are clear. Septal deviation is noted . IMPRESSIONS: 1. Mild atrophy with mild chronic appearing periventricular white matter ischemic-type changes.
[2020-10-31] MEDS ORDERED: ACETAMINOPHEN TAB 325 MG TAB PO PRN (12:45)
[2020-10-31] MEDS ORDERED: ONDANSETRON 4 MG/2 ML VIAL IVP PRN (12:45)
[2020-10-31] MEDS ORDERED: NALOXONE 0.4 MG/ML 1 ML VIAL IV PRN (12:45)
[2020-10-31] MEDS ORDERED: ATORVASTATIN 80 MG TAB PO STA (14:32)
[2020-10-31] MEDS ORDERED: CLOPIDOGREL 75 MG TAB PO STA (14:36)
--- NOTE | 2020-10-31 14:36 | US ---
EXAMINATION TYPE: US carotid duplex BILAT DATE OF EXAM: 10/31/2020 COMPARISON: NONE CLINICAL HISTORY: stenosis, CVA. blurry right eye EXAM MEASUREMENTS: RIGHT: Peak Systolic Velocity (PSV) cm/sec ----- Right CCA: 35.0 ----- Right ICA: 76.4 ----- Right ECA: 28.3 ICA/CCA ratio: 2.2 RIGHT: End Diastole cm/sec ----- Right CCA: 5.4 ----- Right ICA: 7.5 ----- Right ECA: 6.9 LEFT: Peak Systolic Velocity (PSV) cm/sec ----- Left CCA: 102.6 ----- Left ICA: not detected ----- Left ECA: 145.1 ICA/CCA ratio: N/A LEFT: End Diastole cm/sec ----- Left CCA: 16.7 ----- Left ICA: not detected ----- Left ECA: 22.9 VERTEBRALS (direction of flow): Right Vertebral: Antegrade Left Vertebral: Antegrade Rhythm: Normal Extensive plaque bilaterally that makes accuracy very difficult. Discrepancies with current US and pr evious, recommend further evaluation by CT Stenosis noted on right proximal ICA and unable to acquire any doppler signal for left ICA. IMPRESSION: No flow seen in the left internal carotid artery. There is antegrade flow in the vertebral arteries. 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 Criteria for Assigning % of Stenosis / Diameter reduction (Estimation based on the indirect measurements of the internal carotid artery velocities (ICA PSV). 1. Normal (no stenosis)=ICA PSV < 125 cm/s: ratio < 2.0: ICA EDV<40 cm/s. 2. Less than 50% stenosis=ICA PSV < 125 cm/s: ratio < 2.0: ICA EDV<40 cm/s. 3. 50 to 69% stenosis=ICA PSV of 125 to 230 cm/s: ration 2.0 ? 4.0: ICA EDV 40-100 cm/s. 4. Greater than 70% stenosis to near occlusion= ICA PSV > 230 cm/s: ratio > 4.0: ICA EDV > 100 cm/s. 5. Near occlusion= ICA PSV velocities may be low or undetectable: variable ratio and ICA EDV. 6. Total occlusion=unable to detect flow.
--- NOTE | 2020-10-31 14:54 | P.CNNES ---
History of Present Illness Consult date: 10/31/20 Requesting physician: Kian David Reason for Consult: ischemic optic neuritis History of Present Illness: This is an 80-year-old gentleman with medical history of diabetes mellitus (for 10 years), hypertension, bilateral carotid stenosis that presented to the emergency department on 10/31/2020 for right eye blurred vision loss. The patient is accompanied with his (Marysol). Patient stated that the yesterday around 11:30 at p.m. he was working on his car and then all of a sudden he could not see over the right eye and he thought it was because the there was a wind blew and he was working on that [place] [address] and he attributed to that. He woke up today in the morning and he continues not to be able to see over the right eye. He denies of any headache, nausea, vomiting. He denies of any focal weakness, numbness, difficulty getting his words out. The patient was evaluated by brush washer this morning (Dr. Paulette Haley) and dilated his right eye and was told he likely had a stroke. Patient stated that he is on aspirin 80 mg 2 tablets (160mg daily), pravastatin 10 mg daily. He was taken off of Plavix this past May 2020 by his yarder operator (Dr. Dixon). Upon upon asking the patient about the carotid stenosis he stated that the he follows up with Dr. Dixon and he was notified that he doesn't have the significant occlusion and does not require any surgical intervention for the patient and his . He also has bilateral carotid stenosis left more than the right and seems moderate 50-69% per carotid duplex in 2018. A CTA of the neck is reported as severe narrowing of the left proximal right internal carotid artery greater than 70%. Severe right comment carotid artery distal stenosis also present. Severe to critical stenosis left internal carotid artery estimated between 60 and 70%. Plaque in within the proximal left subclavian vein. This would correlate with a subclavian steal syndrome by ultrasound. The patient has stent over the left subclavian and 2018 since was felt the patient had left subclavian steal syndrome performed by Dr. Dixon. As well as he had 2 stents in the heart. Workup in the hospital consisted of: Initial vital signs: Blood pressure of 210/83 and the repeat it was 154/84, heart rate of 85, respiratory rate of 18, temperature of 97.5 Fahrenheit oral and pulse ox of 99% room air. CT of the head is reported as mild atrophy with mild chronic-appearing periv entricular white matter ischemic type changes. EKG is reported as normal sinus rhythm. Septal infarct age undetermined. Abnormal EKG. Initial MCV is 103.4. Initial serum glucose is 2:30 which is elevated. Otherwise the rest of metabolic panel is normal. The CRP is less than 5 inches normal. TSH is 0.861 which is normal. Review of Systems Review of system: The 12 point system was reviewed and apparent positive and negative per HPI. Past Medical History Past Medical History: Cancer, Diabetes Mellitus, Osteoarthritis (OA), Prostate Disorder Additional Past Medical History / Comment(s): Enlarged prostate, basal cell carcinoma top of head, kidney stones, blocked nicole carotid arteries, 07/31/2018 Stent to (L)subclav History of Any Multi-Drug Resistant Organisms: None Reported Past Surgical History: Back Surgery, Cholecystectomy, Orthopedic Surgery Additional Past Surgical History / Comment(s): nicole carpel tunnel,heel spur,basal cell removed from scalp Past Anesthesia/Blood Transfusion Reactions: No Reported Reaction Past Psychological History: No Psychological Hx Reported Smoking Status: Never smoker Past Alcohol Use History: Occasional Past Drug Use History: None Reported - Past Family History Father History Unknown: Yes Mother Family Medical History: No Reported History Medications and Allergies Home Medications Medication Instructions Recorded Confirmed Type Cholecalciferol [Vitamin D3 (25 100 mcg PO AC-SUPPER 05/10/16 10/31/20 History Mcg = 1000 Iu)] Doxazosin [Cardura] 1 mg PO HS 05/10/16 10/31/20 History Pravastatin Sodium [Pravachol] 10 mg PO HS 11/22/16 10/31/20 History Aspirin [[place] Aspirin EC] 162 mg PO DAILY 10/31/20 10/31/20 History Magnesium Oxide [Mag-Ox] 400 mg PO HS 10/31/20 10/31/20 History Metoprolol Tartrate [Lopressor] 12.5 mg PO DAILY 10/31/20 10/31/20 History lisinopriL [Zestril] 1.25 mg PO AC-SUPPER 10/31/20 10/31/20 History metFORMIN HCL ER [Glucophage Xr] 1,000 mg PO AC-BID 10/31/20 10/31/20 History Allergies Allergy/AdvReac Type Severity Reaction Status Date / Time tamsulosin [From Flomax] Allergy Rash/Hives Verified 10/31/20 12:52 Physical Examination - Vital Signs Vital Signs: Vital Signs Temp Pulse Resp BP Pulse Ox 10/31/20 12:30 86 16 154/84 99 10/31/20 10:46 97.5 F L 85 18 210/83 99 Intake and Output 10/30/20 10/31/20 10/31/20 22:59 06:59 14:59 Other: Weight 90.265 kg GENERAL: The patient is lying in bed and is not in acute distress. CHEST: The heart rate is regular rate rhythm. No murmurs to auscultation. Left carotid bruit >right carotid buit. LUNG: Clear to auscultation bilaterally no wheezing noted throughout. Not labored breathing. ABDOMEN/GI: Bowel sounds present in all 4 quadrants. No tenderness to palpation throughout. NEUROLOGICAL: Higher mental function: The patient is awake, alert, oriented to self, place and time. Patient is following commands. No aphasia and no neglect. Cranial nerves: The pupils are round, right is dilated and fixed (had his eyes dilated just recently by his Ophthamologist) while left is 3-4mm and reactive to light. Visual scott: Complete vision loss over the right eye while intact over the left. Extraocular movement is intact no nystagmus is noted. Facial sensation is normal to touch throughout. The facial strength is normal throughout. Hearing is mildly to moderate decreased bilaterally to hand rub. Tongue is midline and moved [id number] without any difficulty. No dysarthria is noted. Shoulder shrug is normal bilaterally. Motor: Gait is deferred. The strength is 5 over 5 throughout. Normal tone and bulk. Cerebellum: Normal finger to nose heel to chin bilaterally. Sensation: Sensation is normal to touch throughout. Reflexes (right/left): 2+ throughout. Plantars are downgoing bilaterally. Results - Laboratory Findings CBC and BMP: 10/31/20 11:24 10/31/20 11:24 Abnormal Lab Findings: Abnormal Labs 10/31/20 10/31/20 11:24 11:24 RBC 4.20 L MCV 103.4 H RDW 18.0 H Glucose 230 H Assessment and Plan Assessment: This is an 80-year-old with multiple medical problems that presented to the emergency department on 10/31/2020 for right eye complete vision loss. He denies of headache, nausea, vomiting, focal weakness or numbness. Acute complete vision loss over right eye is due to acute ischemic stroke. Et iology likely artery to artery from symptomatic right carotid. Severe Bilateral carotid stenosis (in 2018 Right > left (>70% while left 60-70%) per CTA). Has bruit over the left carotid> right. 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 TSH is 0.861 which is normal. The patient was started on aspirin 325 mg and Plavix 75 mg daily by the ED team and to be continued which will help with carotid stenosis. I loaded the patient with Plavix 300mg once and Lipitor 80mg once. I start the patient on Lipitor 80 mg daily at bedtime for secondary stroke prophylaxis. I ordered CTA of the head and neck urgent. Carotid duplex is ordered by ED STAT. I ordered MRI Brain w/o. Ordered 2-D echo and lipid panel. Ordered q4 hours neuro checks Placed the patient on continuous cardiac monitoring Consulted PT and OT I consulted for vascular team for the carotid stenosis Please avoid any hypotensive episodes. Recommend permissive blood pressure. Control Systolic blood pressure if >220 or diastolic is >110 for the first 24 hours. The plan is discussed with the patient and his (who is at bedside) as well as patient's nurse. Thank you for the consultation. Dr. Ramirez will take over Neurology service starting tomorrow AM. Christopher Singer MD Neuro-Hospitalist Time with Patient: Greater than 30
[2020-10-31 15:05] LABS: Cholesterol 125 mg/dL (<200); HDL Cholesterol 37 mg/dL (40-60); LDL Cholesterol,Calculated 59 mg/dL (0-99); Triglycerides 146 mg/dL (<150)
--- NOTE | 2020-10-31 15:27 | CT ---
EXAMINATION TYPE: CT angio head neck DATE OF EXAM: 10/31/2020 COMPARISON: HISTORY: Stroke, carotid stenosis w/ right vision loss CT DLP: 560.1 mGycm Automated exposure control for dose reduction was used. CONTRAST: Performed with IV Contrast, patient injected with 65 mL of Isovue 370. Images were obtained from the aortic arch to the vertex of the brain with IV contrast. There are 3-D post processed images. FINDINGS: There is normal branching pattern of the great vessels on the aortic arch. There is bilateral arteria l flow in the subclavian arteries. There is diffuse plaque formation in the subclavian arteries. Ther e is luminal narrowing up to 40%. There is significant plaque at the origin of the left common caroti d artery with luminal narrowing probably 70%. There is probably 50% narrowing at the origin of the ri ght common carotid artery. There is subtotal occlusion of the distal right common carotid artery. The re is extensive plaque at the right carotid artery bifurcation. There is arterial flow in the right i nternal carotid artery. There is significant plaque in the distal left common carotid artery. There is plaque formation at th e left carotid artery bifurcation. There is subtotal occlusion of the proximal left internal carotid artery. There is arterial flow in both distal internal carotid arteries at the skull base. There is arterial flow in the vertebrobasilar artery system. There is arterial flow in both vertebral arteries. There is some plaque formation and 50% luminal narrowing of the mid left vertebral artery. There is arterial flow in the anterior middle and posterior cerebral arteries bilaterally. There is f usiform stenosis of the proximal right anterior cerebral artery. I see no intracranial aneurysm or ne ovascularity. There is no mass effect. There is normal contrast opacification of the venous sinuses. IMPRESSION: Multiple areas of significant stenosis involving both carotid arteries as above. There is probably mo re than 90% stenosis of the proximal internal carotid arteries bilaterally. Mild fusiform stenosis proximal right anterior cerebral artery.
[2020-10-31 16:57] LABS: Glucose,Whole Blood 225 mg/dL (75-99)
[2020-10-31] MEDS: INSULIN ASPART (NovoLOG) 100 UNIT/ML VIAL SQ SCH ×2 (18:40→21:47)
[2020-10-31] MEDS: SODIUM CHLORIDE 0.9% 1,000 ML IV SCH (18:41)
--- NOTE | 2020-10-31 18:47 | P.GSCN ---
History of Present Illness Consult date: 10/31/20 Reason for Consult: Symptomatic Carotid stenosis History of present illness: 80-year-old gentleman with medical history of diabetes mellitus, hypertension, bilateral carotid stenosis that presented to the emergency department on 10/31/2020 for right eye blurred vision loss. Patient states having blurry vision starting two days ago when working on his car. He then had another episode the following day and was brought to the ER. He was then sent to Dr. Haley to have his eyes evaluated and was told he had a stroke. He denies of any headache, nausea, vomiting. He denies of any focal weakness, numbness, difficulty getting his words out. Patient has seen Dr. Dixon in the past and had carotid dopplers and was told he may need an intervention later in the year. He denies any stroke like symptoms prior to this episode. Carotid doppler demonstrated extensive plaque with poor accuracy as well as occlusion of the left ICA. CTA was then ordered. CTA demonstrated severely calcified bilateral carotid stenosis with greater than 70-90% bilaterally. Left subclavian artery narrowing CT of the head is reported as mild atrophy with mild chronic-appearing periventricular white matter ischemic type changes. EKG is reported as normal sinus rhythm. Septal infarct age undetermined. Abnormal EKG. Review of Systems All systems: negative (what is mentioned in the HPI and PMH) Past Medical History Past Medical History: Cancer, Diabetes Mellitus, Osteoarthritis (OA), Prostate Disorder Additional Past Medical History / Comment(s): Enlarged prostate, basal cell carcinoma top of head, kidney stones, blocked nicole carotid arteries, 07/31/2018 Stent to (L)subclav History of Any Multi-Drug Resistant Organisms: None Reported Past Surgical History: Back Surgery, Cholecystectomy, Orthopedic Surgery Additional Past Surgical History / Comment(s): nicole carpel tunnel,heel spur,basal cell removed from scalp Past Anesthesia/Blood Transfusion Reactions: No Reported Reaction Past Psychological History: No Psychological Hx Reported Smoking Status: Former smoker Past Alcohol Use History: Occasional Additional Past Alcohol Use History / Comment(s): quit smoking ,smoked for approx 30yrs 1ppd Past Drug Use History: None Reported - Past Family History Father History Unknown: Yes Mother Family Medical History: No Reported History Medications and Allergies Home Medications Medication Instructions Recorded Confirmed Type Cholecalciferol [Vitamin D3 (25 100 mcg PO AC-SUPPER 05/10/16 10/31/20 History Mcg = 1000 Iu)] Doxazosin [Cardura] 1 mg PO HS 05/10/16 10/31/20 History Pravastatin Sodium [Pravachol] 10 mg PO HS 11/22/16 10/31/20 History Aspirin [[place] Aspirin EC] 162 mg PO DAILY 10/31/20 10/31/20 History Magnesium Oxide [Mag-Ox] 400 mg PO HS 10/31/20 10/31/20 History Metoprolol Tartrate [Lopressor] 12.5 mg PO DAILY 10/31/20 10/31/20 History lisinopriL [Zestril] 1.25 mg PO AC-SUPPER 10/31/20 10/31/20 History metFORMIN HCL ER [Glucophage Xr] 1,000 mg PO AC-BID 10/31/20 10/31/20 History Allergies Allergy/AdvReac Type Severity Reaction Status Date / Time tamsulosin [From Flomax] Allergy Rash/Hives Verified 10/31/20 12:52 Surgical - Exam Vital Signs Temp Pulse Resp BP Pulse Ox 97.5 F L 85 18 210/83 99 10/31/20 10:46 10/31/20 10:46 10/31/20 10:46 10/31/20 10:46 10/31/20 10:46 - General well developed, well nourished - Eyes normal ocular movement - ENT normal pinna, normal nares - Respiratory normal expansion, normal respiratory effort - Abdomen Abdomen: soft, non tender - Integumentary no rash, no growths - Neurologic normal coordination, normal sensation - Musculoskeletal normal gait - Psychiatric oriented to time, oriented to person, oriented to place, speech is normal Palpable DP pulses bilaterally. Results - Labs 10/31/20 11:24 10/31/20 11:24 Abnormal Lab Results - Last 24 Hours (Table) 10/31/20 10/31/20 10/31/20 Range/Units 11:24 11:24 11:24 RBC 4.20 L (4.30-5.90) m/uL MCV 103.4 H (80.0-100.0) fL RDW 18.0 H (11.5-15.5) % Glucose 230 H (74-99) mg/dL POC Glucose (mg/dL) (75-99) mg/dL HDL Cholesterol 37 L (40-60) mg/dL 10/31/20 Range/Units 16:56 RBC (4.30-5.90) m/uL MCV (80.0-100.0) fL RDW (11.5-15.5) % Glucose (74-99) mg/dL POC Glucose (mg/dL) 225 H (75-99) mg/dL HDL Cholesterol (40-60) mg/dL Diabetes panel 10/31/20 10/31/20 Range/Units 11:24 11:24 Sodium 138 (137-145) mmol/L Potassium 4.4 (3.5-5.1) mmol/L Chloride 105 (98-107) mmol/L Carbon Dioxide 25 (22-30) mmol/L BUN 17 (9-20) mg/dL Creatinine 0.85 (0.66-1.25) mg/dL Glucose 230 H (74-99) mg/dL Calcium 9.3 (8.4-10.2) mg/dL AST 25 (17-59) U/L ALT 21 (4-49) U/L Alkaline Phosphatase 51 (38-126) U/L Total Protein 6.5 (6.3-8.2) g/dL Albumin 4.0 (3.5-5.0) g/dL Triglycerides 146 (<150) mg/dL HDL Cholesterol 37 L (40-60) mg/dL Thyroid panel 10/31/20 Range/Units 11:24 TSH 0.861 (0.465-4.680) mIU/L Calcium panel 10/31/20 Range/Units 11:24 Calcium 9.3 (8.4-10.2) mg/dL Albumin 4.0 (3.5-5.0) g/dL Pituitary panel 10/31/20 Range/Units 11:24 Sodium 138 (137-145) mmol/L Potassium 4.4 (3.5-5.1) mmol/L Chloride 105 (98-107) mmol/L Carbon Dioxide 25 (22-30) mmol/L BUN 17 (9-20) mg/dL Creatinine 0.85 (0.66-1.25) mg/dL Glucose 230 H (74-99) mg/dL Calcium 9.3 (8.4-10.2) mg/dL TSH 0.861 (0.465-4.680) mIU/L Adrenal panel 10/31/20 Range/Units 11:24 Sodium 138 (137-145) mmol/L Potassium 4.4 (3.5-5.1) mmol/L Chloride 105 (98-107) mmol/L Carbon Dioxide 25 (22-30) mmol/L BUN 17 (9-20) mg/dL Creatinine 0.85 (0.66-1.25) mg/dL Glucose 230 H (74-99) mg/dL Calcium 9.3 (8.4-10.2) mg/dL Total Bilirubin 0.7 (0.2-1.3) mg/dL AST 25 (17-59) U/L ALT 21 (4-49) U/L Alkaline Phosphatase 51 (38-126) U/L Total Protein 6.5 (6.3-8.2) g/dL Albumin 4.0 (3.5-5.0) g/dL Assessment and Plan Assessment: 1. Symptomatic right carotid artery stenosis 2. Bilateral carotid artery stenosis 3. Right vision loss secondary to embolic plaque 4. CAD 5. DM 6. History of left subclavian steal syndrome Plan: Reviewed CTA and carotid doppler with patient in full detail. Agree with neurology and aspirin and plavix as well as MRI of brain. 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 I did discuss with him options including TCAR, transfemoral stenting and CEA. I recommend carotid endarterectomy due to the calcification and location of the disease this hospital stay. Patient is in agreement with plan. Will await MRI results and discuss with neurology for timing of procedure. Thank you for the consultation and call if there are any questions.
[2020-10-31 20:41] LABS: Glucose,Whole Blood 174 mg/dL (75-99)
[2020-11-01 06:19] LABS: Glucose,Whole Blood 212 mg/dL (75-99)
[2020-11-01] MEDS: SODIUM CHLORIDE 0.9% 1,000 ML IV SCH ×3 (06:49→20:51)
[2020-11-01] MEDS: INSULIN ASPART (NovoLOG) 100 UNIT/ML VIAL SQ SCH ×4 (06:50→20:50)
[2020-11-01] MEDS: metFORMIN 500 MG TAB PO SCH ×2 (07:53→17:45)
[2020-11-01] MEDS: CLOPIDOGREL 75 MG TAB PO SCH (08:09)
[2020-11-01] MEDS: METOPROLOL TARTRATE 12.5 MG TAB PO SCH (08:09)
--- NOTE | 2020-11-01 08:42 | MR ---
EXAMINATION TYPE: MR brain wo con DATE OF EXAM: 11/01/2020 COMPARISON: CT brain 10/31/2020 HISTORY: stroke: right eye blindness CONTRAST: Performed utilizing 0 mL intravenous Gadavist gadolinium contrast. TECHNIQUE: Multiplanar, multiecho imaging on a 3.0 Earline magnet is performed through the brain. Stud y is performed within 24 hours of arrival to the hospital. The craniovertebral junction is normal. The pituitary is normal. Diffusion-weighted imaging is performed. No abnormal hyperintensity is present to suggest an acute i ntracranial infarct or acute ischemic change. There scattered small periventricular white matter hyperintensities, likely on the basis of chronic w elli matter ischemic change. No acute infarcts or acute ischemic changes are identified. Ventricles and sulci are prominent for the patient age. The right A1 segment may be hypoplastic. IMPRESSIONS: 1. Atrophy with chronic appearing periventricular white matter ischemic changes. 2. No acute infarcts or acute ischemic changes to account for right eye blindness is identified.
[2020-11-01] MEDS ORDERED: ASPIRIN 325 MG TAB PO SCH (09:00)
[2020-11-01] MEDS ORDERED: ASPIRIN 81 MG PO SCH (09:00)
--- NOTE | 2020-11-01 11:56 | ECHOF ---
Referral Reason:stroke MEASUREMENTS -------- HEIGHT: 175.3 cm WEIGHT: 90.3 kg BP: 154/69 RVIDd: 3.5 cm (< 3.3) IVSd: 1.3 cm (0.6 - 1.1) LVIDd: 4.6 cm (3.9 - 5.3) LVPWd: 1.1 cm (0.6 - 1.1) IVSs: 1.5 cm LVIDs: 3.3 cm LVPWs: 1.8 cm LA Diam: 3.5 cm (2.7 - 3.8) LAESV Index (A-L): 30.32 ml/m Ao Diam: 3.5 cm (2.0 - 3.7) AV Cusp: 2.0 cm (1.5 - 2.6) MV EXCURSION: 20.174 mm (> 18.000) MV EF SLOPE: 146 mm/s (70 - 150) EPSS: 1.4 cm MV E Hu: 0.68 m/s MV DecT: 239 ms MV A Hu: 0.82 m/s MV E/A Ratio: 0.82 RAP: 5.00 mmHg RVSP: 29.49 mmHg FINDINGS -------- Sinus rhythm. This was a technically adequate study. The left ventricular size is normal. There is mild concentric left ventricular hypertrophy. Overa ll left ventricular systolic function is mild-moderately impaired with, an EF between 40 - 45 %. Ba maurilio inferior LV wall motion is hypokinetic. Basal inferoseptal LV wall motion is hypokinetic. M id inferior LV wall motion is hypokinetic. Mid inferoseptal LV wall motion is hypokinetic. The right ventricle is mildly enlarged. LA is midly dilated 29-33ml/m2. The right atrium is normal in size. Interatrial and interventricular septum intact. There is mild aortic valve sclerosis. The mitral valve leaflets are mildly thickened. Mild mitral annular calcification present. There is trace to mild mitral regurgitation. Mild tricuspid regurgitation present. Right ventricular systolic pressure is normal at < 35 mmHg. There is no pulmonic regurgitation present. The aortic root size is normal. Normal inferior vena cava with normal inspiratory collapse consistent with estimated right atrial pre ssure of 5 mmHg. There is no pericardial effusion. CONCLUSIONS -------- 1. The left ventricular size is normal. 2. There is mild concentric left ventricular hypertrophy. 3. Overall left ventricular systolic function is mild-moderately impaired with, an EF between 40 - 45 %. 4. Basal inferior LV wall motion is hypokinetic. 5. Basal inferoseptal LV wall motion is hypokinetic. 6. Mid inferior LV wall motion is hypokinetic. 7. Mid inferoseptal LV wall motion is hypokinetic. 8. The right ventricle is mildly enlarged. 9. LA is midly dilated 29-33ml/m2. 10. There is mild aortic valve sclerosis. 11. The mitral valve leaflets are mildly thickened. 12. Mild mitral annular calcification present. 13. There is trace to mild mitral regurgitation. 14. Mild tricuspid regurgitation present. 15. There is no pericardial effusion. DEMURRAGE MAN: Lisa Singletary RDCS
[2020-11-01 12:12] LABS: Glucose,Whole Blood 196 mg/dL (75-99)
--- NOTE | 2020-11-01 13:29 | P.PN ---
Subjective Progress Note Date: 11/01/20 Principal diagnosis: Carotid stenosis, with right vision loss The patient is seen and examined sitting up in his chair. No acute changes through the night. He still has visual loss in the right eye, he reports blurred vision in the top half and black on the lower half. He denies any other focal deficits. An MRI of the brain today that showed atrophy with chronic appearing periventricular white matter ischemic changes. No acute infarcts or acute ischemic changes to account for right eye blindness is identified. Echocardiogram showed mild concentric left ventricular hypertrophy, EF between 40 and 40%, mild aortic valve sclerosis, mitral valve leaflets mildly thickened, mitral annular calcification present, trace to mild mitral regurgitation, mild tricuspid regurgitation. Objective - Vital Signs Vital signs: Vital Signs Temp 97.4 F L 11/01/20 04:00 Pulse 83 11/01/20 04:00 Resp 18 11/01/20 04:00 BP 154/69 11/01/20 04:00 Pulse Ox 97 11/01/20 04:00 Intake & Output 10/31/20 11/01/20 11/01/20 18:59 06:59 18:59 Intake Total 360 240 Balance 360 240 Weight 90.265 kg Intake: Oral 360 240 Other: Voiding Method Toilet # Voids 1 2 - Exam General appearance: The patient is alert, oriented, in no acute distress. HET: Head is normocephalic and atraumatic. Pupils are equal and reactive. Right eye with bottom half of vision loss. Neck: Supple without lymphadenopathy. Trachea midline. Heart: S1 S2. Regular rate and rhythm. Lungs: No crackles or wheezes are heard. Abdomen: Soft, nontender, nondistended with bowel sounds. No peritoneal signs. No palpable organomegaly or masses. Extremities: Normal skin color and turgor. No cyanosis, rash, ulceration, clubbing, or edema. Radial and pedal pulses are 2/4 bilaterally. Neurological: Alert and oriented 3. Right-sided vision loss. Bilateral upper and lower extremity strength 4/5, tongue protrudes midline, speech is fluent, answers questions appropriately. - Labs CBC & Chem 7: 10/31/20 11:24 10/31/20 11:24 Labs: Abnormal Lab Results - Last 24 Hours (Table) 10/31/20 10/31/20 10/31/20 Range/Units 11:24 11:24 11:24 RBC 4.20 L (4.30-5.90) m/uL MCV 103.4 H (80.0-100.0) fL RDW 18.0 H (11.5-15.5) % Glucose 230 H (74-99) mg/dL POC Glucose (mg/dL) (75-99) mg/dL Hemoglobin A1c 7.0 H (4.0-6.0) % HDL Cholesterol (40-60) mg/dL 10/31/20 10/31/20 10/31/20 Range/Units 11:24 16:56 20:08 RBC (4.30-5.90) m/uL MCV (80.0-100.0) fL RDW (11.5-15.5) % Glucose (74-99) mg/dL POC Glucose (mg/dL) 225 H 174 H (75-99) mg/dL Hemoglobin A1c (4.0-6.0) % HDL Cholesterol 37 L (40-60) mg/dL 11/01/20 Range/Units 06:16 RBC (4.30-5.90) m/uL MCV (80.0-100.0) fL RDW (11.5-15.5) % Glucose (74-99) mg/dL POC Glucose (mg/dL) 212 H (75-99) mg/dL Hemoglobin A1c (4.0-6.0) % HDL Cholesterol (40-60) mg/dL Assessment and Plan Assessment: 1. Symptomatic right carotid artery stenosis 2. Bilateral carotid artery stenosis 3. Right vision loss secondary to embolic plaque 4. CAD 5. DM 6. History of left subclavian steal syndrome Plan: 1. Continue aspirin, Plavix and statin 2. MRI ordered per neurology 3. Will discuss with neurology regarding timing of surgical intervention for bilateral ICA stenosis 4. Patient agreeable to surgical intervention, plan is to proceed with right carotid endarterectomy, timing to be determined 5. Consult ophthalmology 6. Will need medical clearance to proceed with carotid endarterectomy The impression and plan of care has been dictated as directed. Dr. Curran I performed a history and examination of this patient, discussed the same with the dictator. I agree with the dictator's note ,documented as a scribe. Any additional findings or plans will be noted.
--- NOTE | 2020-11-01 15:48 | CONS ---
CONSULTATION CHIEF COMPLAINT: Loss of vision, right eye, of 2 days' duration. EYE EXAMINATION: Vision right eye is hand movement. Extraocular motility full. Confrontation normal in the left eye. The right pupil showed RAPD. Lens shows 2+ NS OU. Intraocular pressure 22 right eye and 19 left eye. Right optic disk shows ischemia with blurry margins. Macula assessed to be normal. No OCT available. ASSESSMENT: Right ischemic arthritic optic neuritis. PLAN: Sedimentation rate was normal. MRI reviewed was normal. Patient is seeing Dr. Ramirez, the neurologist, and he is seeing a cardiovascular surgeon for further evaluation of the carotid and the brain. MMODL / IJN: [id number] /
[2020-11-01 17:05] LABS: Glucose,Whole Blood 178 mg/dL (75-99)
--- NOTE | 2020-11-01 17:19 | P.PN ---
Subjective Progress Note Date: 11/01/20 Patient was seen for follow-up. Patient initially seen by Dr. Rakesh Singer yesterday. Please refer to his note for details. Patient came to the hospital yesterday at 10:45 AM. Patient was cleaning the yard, went inside his home to have a coffee break, when he suddenly noticed loss of vision in the right eye. He saw some flashes. He immediately came to the hospital. Patient was sent for ophthalmology evaluation, and was diagnosed with ischemic optic neuritis of the right eye. Patient was referred back to the ER. Patient underwent CTA of the head and neck, which revealed multiple areas of significant stenosis involving both carotid arteries. There is probably more than 90% stenosis of the proximal ICAs bilaterally. Mild fusiform stenosis proximal right MINAL. Patient was loaded with Plavix 300 mg and aspirin 325 mg. Patient's ESR was normal. Patient was taking aspirin 162 mg at home. Brain MRI showed atrophy with chronic appearing periventricular white matter ischemic changes. No acute infarcts or acute ischemic changes took on for right eye blindness. 2-D echo showed normal left and her size. Mild concentric LVH EF is 40-45%. Basal inferior, basal inferior septal, mid inferior, mid inferior septal left- ventricular wall motions are hypokinetic. Left atrium is mildly dilated. Mitral valve leaflets are mildly thickened. EKG shows normal sinus rhythm. Patient has history of diabetes for last 10-15 years, hypertension. He has smoked half pack per day for 33 years, quit at age 49. Objective - Vital Signs Vital signs: Vital Signs Temp 97.5 F L 11/01/20 08:00 Pulse 83 11/01/20 08:00 Resp 22 11/01/20 08:00 BP 167/75 11/01/20 08:00 Pulse Ox 97 11/01/20 08:00 Intake & Output 10/31/20 11/01/20 11/01/20 18:59 06:59 18:59 Intake Total 360 240 Balance 360 240 Weight 90.265 kg Intake: Oral 360 240 Other: Voiding Method Toilet # Voids 1 2 - Exam Patient's mental status, speech and language functions are normal. Cranial nerves are significant for right APD, dilated pupil. Patient can only count some fingers, and can make out images. Otherwise he see blue and white in the entire right visual field of the right eye. Face is symmetric, tongue protrudes the midline. Palatal elevation is normal. Muscle strength is no drift and the strength is normal in arms and legs. No ataxia. Tone and bulk of muscles normal. Gait normal. Patient has bilateral carotid bruit, S1 and S2 audible. Abdomen soft nontender, chest is clear. - Labs CBC & Chem 7: 10/31/20 11:24 10/31/20 11:24 Labs: Abnormal Lab Results - Last 24 Hours (Table) 10/31/20 10/31/20 10/31/20 Range/Units 11:24 11:24 16:56 POC Glucose (mg/dL) 225 H (75-99) mg/dL Hemoglobin A1c 7.0 H (4.0-6.0) % HDL Cholesterol 37 L (40-60) mg/dL 10/31/20 11/01/20 11/01/20 Range/Units 20:08 06:16 12:10 POC Glucose (mg/dL) 174 H 212 H 196 H (75-99) mg/dL Hemoglobin A1c (4.0-6.0) % HDL Cholesterol (40-60) mg/dL Assessment and Plan Assessment: * Acute ischemic optic neuritis, right eye * Bilateral ICA stenosis > 90%, likely symptomatic on the right. * Hypertension * Diabetes * X tobacco use Plan: * Patient will undergo right CEA during this admission. * He will also need left CEA as well in the near future. * Continue dual antiplatelet medications. * ESR is 2, CRP <5.0. No evidence of temporal arteritis. * Hemoglobin A1c 7.0 * Patient's OD echo was also abnormal, would defer recommendations to IM. * Lipid panel with cholesterol 125, LDL 59, HDL 37 and triglycerides 146. Continue high-dose statins. * Discussed with ophthalmology and vascular surgery in detail. Time with Patient: Greater than 30
[2020-11-01] MEDS ORDERED: CHOLECALCIFEROL 25 MCG (1000 IU) TABLET PO SCH (17:30)
--- NOTE | 2020-11-01 17:58 | P.HPIM ---
History of Present Illness H&P Date: 11/01/20 Rah Howard, is an 80-year-old male who presented to [facility] emergency room with a chief complaint of right eye blurred vision that started suddenly last evening patient was evaluated earlier this morning by Dr. Paulette Haley, proposal manager writer, and likely diagnosis was a stroke patient was sent to emergency room. On evaluation in the emergency room vital examination reveals a temperature of 97.5 pulse 85 respiration 18 and blood pressure 210/83 pulse ox 99% on room air, laboratory data revealed a white blood count of 9.0 hemoglobin 13.9 platelet count 234, sodium 138 potassium 4.4 chloride 105 CO2 25 BUN 17 creatinine 0.85 glucose level was 230 hemoglobin A1c 7.0 AST and ALT were normal troponin level less than 0.012 TSH was normal coronary virus PCR was negative, computed tomography scan of the brain done without contrast in the emergency room revealed mild atrophy with chronic appearing periventricular white matter ischemic type changes. Computed tomography angiogram of the carotid arteries revealed multiple area of significant stenosis involving both carotid arteries at more than 90% stenosis of the proximal internal carotid artery bilaterally. Patient was admitted to telemetry floor neurology consultation vascular surgery consultation and cardiology consultation were requested. Past medical history significant for history of hypertension, history of hyperlipidemia, history of coronary artery disease with previous history of stent placement in 2019, history of [id number] diabetes mellitus. On review of systems patient is alert and oriented 3 he is complaining of blurred vision over the right eye otherwise he denies any complaints there is no fever or chills no headache or dizziness no chest pain no shortness of breath no cough no nausea or vomiting no abdominal pain no diarrhea no blood in the stools no burning with urination no frequency or urgency and no hematuria there is no weakness or numbness in any of the extremities there is no change in speech or gait Past Medical History Past Medical History: Cancer, Diabetes Mellitus, Osteoarthritis (OA), Prostate Disorder Additional Past Medical History / Comment(s): Enlarged prostate, basal cell carcinoma top of head, kidney stones, blocked nicole carotid arteries, 07/31/2018 Stent to (L)subclav History of Any Multi-Drug Resistant Organisms: None Reported Past Surgical History: Back Surgery, Cholecystectomy, Orthopedic Surgery Additional Past Surgical History / Comment(s): nicole carpel tunnel,heel spur,basal cell removed from scalp Past Anesthesia/Blood Transfusion Reactions: No Reported Reaction Past Psychological History: No Psychological Hx Reported Smoking Status: Former smoker Past Alcohol Use History: Occasional Additional Past Alcohol Use History / Comment(s): quit smoking ,smoked for approx 30yrs 1ppd Past Drug Use History: None Reported - Past Family History Father History Unknown: Yes Mother Family Medical History: No Reported History Medications and Allergies Home Medications Medication Instructions Recorded Confirmed Type Cholecalciferol [Vitamin D3 (25 100 mcg PO AC-SUPPER 05/10/16 10/31/20 History Mcg = 1000 Iu)] Doxazosin [Cardura] 1 mg PO HS 05/10/16 10/31/20 History Pravastatin Sodium [Pravachol] 10 mg PO HS 11/22/16 10/31/20 History Aspirin [[place] Aspirin EC] 162 mg PO DAILY 10/31/20 10/31/20 History Magnesium Oxide [Mag-Ox] 400 mg PO HS 10/31/20 10/31/20 History Metoprolol Tartrate [Lopressor] 12.5 mg PO DAILY 10/31/20 10/31/20 History lisinopriL [Zestril] 1.25 mg PO AC-SUPPER 10/31/20 10/31/20 History metFORMIN HCL ER [Glucophage Xr] 1,000 mg PO AC-BID 10/31/20 10/31/20 History Allergies Allergy/AdvReac Type Severity Reaction Status Date / Time tamsulosin [From Flomax] Allergy Rash/Hives Verified 10/31/20 12:52 Physical Exam Vitals: Vital Signs Temp Pulse Pulse Resp BP BP Pulse Ox 11/01/20 04:00 97.4 F L 83 18 154/69 97 11/01/20 00:00 97.6 F 73 18 169/55 96 10/31/20 19:51 97.4 F L 81 18 192/85 95 10/31/20 15:35 97.7 F 79 18 198/72 97 10/31/20 12:30 86 16 154/84 99 10/31/20 10:46 97.5 F L 85 18 210/83 99 Intake and Output 10/31/20 11/01/20 11/01/20 22:59 06:59 14:59 Intake Total 360 240 Balance 360 240 Intake: Oral 360 240 Other: Voiding Method Toilet Toilet # Voids 1 2 Weight 90.265 kg In general patient is alert and oriented in no apparent distress HEENT head normocephalic and atraumatic Neck is supple no JVD no goiter no lymphadenopathy Chest exam reveals a few scattered crackles no wheezing Cardiac exam reveals regular heart sounds S1 and S2 no gallops no murmurs Abdomen is soft nontender no organomegaly with normal bowel sounds Extremity exam reveals no edema no cyanosis or clubbing Neurological examination reveals significant vision loss in the right eye otherwise no gross focal deficit Results CBC & Chem 7: 10/31/20 11:24 10/31/20 11:24 Labs: Abnormal Lab Results - Last 24 Hours (Table) 10/31/20 10/31/20 10/31/20 Range/Units 11:24 11:24 11:24 RBC 4.20 L (4.30-5.90) m/uL MCV 103.4 H (80.0-100.0) fL RDW 18.0 H (11.5-15.5) % Glucose 230 H (74-99) mg/dL POC Glucose (mg/dL) (75-99) mg/dL Hemoglobin A1c 7.0 H (4.0-6.0) % HDL Cholesterol (40-60) mg/dL 10/31/20 10/31/20 10/31/20 Range/Units 11:24 16:56 20:08 RBC (4.30-5.90) m/uL MCV (80.0-100.0) fL RDW (11.5-15.5) % Glucose (74-99) mg/dL POC Glucose (mg/dL) 225 H 174 H (75-99) mg/dL Hemoglobin A1c (4.0-6.0) % HDL Cholesterol 37 L (40-60) mg/dL 11/01/20 Range/Units 06:16 RBC (4.30-5.90) m/uL MCV (80.0-100.0) fL RDW (11.5-15.5) % Glucose (74-99) mg/dL POC Glucose (mg/dL) 212 H (75-99) mg/dL Hemoglobin A1c (4.0-6.0) % HDL Cholesterol (40-60) mg/dL Thrombosis Risk Factor Assmnt - Choose All That Apply Any of the Below Risk Factors Present?: No Each Risk Factor Represents 3 Points: Age 75 years or older Thrombosis Risk Factor Assessment Total Risk Factor Score: 3 Thrombosis Risk Factor Assessment Level: Moderate Risk Assessment and Plan Plan: Acute vision loss in the right eye likely related to acute ischemic stroke given the sudden loss of vision Severe bilateral carotid artery stenosis Underlying history of coronary artery disease status post angioplasty and stent placement in 2019 Underlying history of hypertension Underlying history of hyperlipidemia Underlying history of diabetes mellitus type II At this time patient is admitted to telemetry floor echocardiogram was ordered MRI of the brain was ordered Cardiology consultation was added for possible clearance for carotid surgery Neurology and vascular surgery are following
[2020-11-01 20:45] LABS: Glucose,Whole Blood 176 mg/dL (75-99)
[2020-11-01] MEDS ORDERED: ATORVASTATIN 80 MG TAB PO SCH (21:00)
[2020-11-01] MEDS ORDERED: DOXAZOSIN 1 MG TAB PO SCH (21:00)
[2020-11-01] MEDS ORDERED: MAGNESIUM OXIDE 400 MG TAB PO SCH (21:00)
[2020-11-02] MEDS: SODIUM CHLORIDE 0.9% 1,000 ML IV SCH (04:45)
[2020-11-02] MEDS: metFORMIN 500 MG TAB PO SCH (06:09)
[2020-11-02 06:15] LABS: Glucose,Whole Blood 165 mg/dL (75-99)
[2020-11-02] MEDS: INSULIN ASPART (NovoLOG) 100 UNIT/ML VIAL SQ SCH ×2 (06:17→12:14)
[2020-11-02 07:26] LABS: Anisocytosis Slight; Basophils # (A) 0.1 k/uL (0-0.2); Basophils % (A) 1 %; Eosinophils # (A) 0.1 k/uL (0-0.7); Eosinophils % (A) 2 %; HCT 40.5 % (39.0-53.0); HGB 13.5 gm/dL (13.0-17.5); Lymphocytes # (A) 1.6 k/uL (1.0-4.8); Lymphocytes % (A) 18 %; MCH 34.5 pg (25.0-35.0); MCHC 33.2 g/dL (31.0-37.0); Macrocytosis Moderate; Mean Platelet Volume 10.3; Monocytes # (A) 0.5 k/uL (0-1.0); Monocytes % (A) 5 %; Neutrophils # (A) 6.4 k/uL (1.3-7.7); Neutrophils % (A) 72 %; Platelet Count 203 k/uL (150-450); RDW 17.5 % (11.5-15.5); WBC 8.8 k/uL (3.8-10.6)
[2020-11-02 07:55] LABS: ALT 18 U/L (4-49); AST 21 U/L (17-59); African American GFR (CKD) >90 (>60 ml/min/1.73 sqM); Albumin 3.3 g/dL (3.5-5.0); Alkaline Phosphatase 43 U/L (38-126); Anion Gap 5 mmol/L; Blood Urea Nitrogen 16 mg/dL (9-20); Calcium 8.9 mg/dL (8.4-10.2); Carbon Dioxide 28 mmol/L (22-30); Chloride 105 mmol/L (98-107); Glucose 170 mg/dL (74-99); Non-African American GFR(CKD) 85 (>60 ml/min/1.73 sqM); Potassium 4.1 mmol/L (3.5-5.1); Sodium 138 mmol/L (137-145); Total Bilirubin 0.7 mg/dL (0.2-1.3); Total Protein 5.6 g/dL (6.3-8.2)
[2020-11-02] MEDS: CLOPIDOGREL 75 MG TAB PO SCH (08:59)
[2020-11-02] MEDS: METOPROLOL TARTRATE 12.5 MG TAB PO SCH (08:59)
[2020-11-02] MEDS ORDERED: lisinopriL 5 MG TAB PO SCH (09:00)
[2020-11-02] MEDS ORDERED: ASPIRIN 81 MG PO SCH (09:00)
--- NOTE | 2020-11-02 11:13 | P.PN ---
Subjective Progress Note Date: 11/02/20 Rah Howard, is an 80-year-old male who presented to [facility] emergency room with a chief complaint of right eye blurred vision that started suddenly last evening patient was evaluated earlier this morning by Dr. Paulette Haley, director of intercollegiate athletics, and likely diagnosis was a stroke patient was sent to emergency room. On evaluation in the emergency room vital examination reveals a temperature of 97.5 pulse 85 respiration 18 and blood pressure 210/83 pulse ox 99% on room air, laboratory data revealed a white blood count of 9.0 hemoglobin 13.9 platelet count 234, sodium 138 potassium 4.4 chloride 105 CO2 25 BUN 17 creatinine 0.85 glucose level was 230 hemoglobin A1c 7.0 AST and ALT were normal troponin level less than 0.012 TSH was normal coronary virus PCR was negative, computed tomography scan of the brain done without contrast in the emergency room revealed mild atrophy with chronic appearing periventricular white matter ischemic type changes. Computed tomography angiogram of the carotid arteries revealed multiple area of significant stenosis involving both carotid arteries at more than 90% stenosis of the proximal internal carotid artery bilaterally. Patient was admitted to telemetry floor neurology consultation vascular surgery consultation and cardiology consultation were requested. Past medical history significant for history of hypertension, history of hy perlipidemia, history of coronary artery disease with previous history of stent placement in 2019, history of [id number] diabetes mellitus. On review of systems patient is alert and oriented 3 he is complaining of blurred vision over the right eye otherwise he denies any complaints there is no fever or chills no headache or dizziness no chest pain no shortness of breath no cough no nausea or vomiting no abdominal pain no diarrhea no blood in the stools no burning with urination no frequency or urgency and no hematuria there is no weakness or numbness in any of the extremities there is no change in speech or gait On 11/02/2020 Patient is alert an oriented x3 currently resting comfortably in chair. blurred vision to left eye remains denies any changes. denies any new neuro symptoms. planning for carotid endarectomy today. denies any chest pain or shortness of breath. denies any urinary burning or frequency. denies any nausea vomiting or diarrhea Objective - Vital Signs Vital signs: Vital Signs Temp 97.7 F 11/02/20 03:13 Pulse 68 11/02/20 03:13 Resp 19 11/02/20 03:13 BP 153/74 11/02/20 03:13 Pulse Ox 99 11/02/20 03:13 Intake & Output 11/01/20 11/02/20 11/02/20 18:59 06:59 18:59 Intake Total 720 1200 Balance 720 1200 Weight 89.4 kg Intake: Intake, IV Titration 1200 Amount Sodium Chloride 0.9% 1, 1200 000 ml @ 100 mls/hr IV . Q10H MACHELLE Rx#:[id number] Oral 720 Other: Voiding Method Toilet # Voids 2 2 - Exam In general patient is alert and oriented in no apparent distress HEENT head normocephalic and atraumatic Neck is supple no JVD no goiter no lymphadenopathy Chest exam reveals a few scattered crackles no wheezing Cardiac exam reveals regular heart sounds S1 and S2 no gallops no murmurs Abdomen is soft nontender no organomegaly with normal bowel sounds Extremity exam reveals no edema no cyanosis or clubbing Neurological examination reveals significant vision loss in the right eye otherwise no gross focal deficit - Labs CBC & Chem 7: 11/02/20 06:14 11/02/20 06:14 Labs: Abnormal Lab Results - Last 24 Hours (Table) 11/01/20 11/01/20 11/01/20 Range/Units 12:10 17:01 20:43 RBC (4.30-5.90) m/uL MCV (80.0-100.0) fL RDW (11.5-15.5) % Glucose (74-99) mg/dL POC Glucose (mg/dL) 196 H 178 H 176 H (75-99) mg/dL Total Protein (6.3-8.2) g/dL Albumin (3.5-5.0) g/dL 11/02/20 11/02/20 11/02/20 Range/Units 06:08 06:14 06:14 RBC 3.90 L (4.30-5.90) m/uL MCV 104.0 H (80.0-100.0) fL RDW 17.5 H (11.5-15.5) % Glucose 170 H (74-99) mg/dL POC Glucose (mg/dL) 165 H (75-99) mg/dL Total Protein 5.6 L (6.3-8.2) g/dL Albumin 3.3 L (3.5-5.0) g/dL Assessment and Plan Plan: Acute vision loss in the right eye likely related to acute ischemic stroke given the sudden loss of vision Severe bilateral carotid artery stenosis Underlying history of coronary artery disease status post angioplasty and stent placement in 2019 Underlying history of hypertension Underlying history of hyperlipidemia Underlying history of diabetes mellitus type II At this time patient is admitted to telemetry floor echocardiogram was ordered MRI of the brain was ordered Cardiology consultation was added for possible clearance for carotid surgery plans for carotid Endarectomy today 11/03/2019
--- NOTE | 2020-11-02 11:57 | P.CRDCN ---
History of Present Illness History of present illness: HISTORY OF PRESENTING ILLNESS This is a pleasant 80-year-old male past medical history significant for coronary artery disease status post PCI to the mid RCA in 2019 with 60% proximal and 50% mid LAD disease, peripheral vascular disease status post left subclavian PCI, carotid artery disease bilaterally, diabetes mellitus, hypertension and dyslipidemia. He follows in the office with Dr. Dixon. We have been asked to see in consultation for preoperative evaluation. Tentatively the hospital with symptoms of blurred vision on the right side. He has been evaluated by neurology and ophthalmology and diagnosed with an acute ischemic optic neuritis. He's been evaluated by vascular surgery and is scheduled to undergo right carotid endarterectomy this morning. He is seen and examined resting comfortably in bed in no acute distress. He has no symptoms of chest discomfort or shortness of breath. He states on a regular basis he is quite active and continues to work in his yard walking trees. He has no difficulty with his daily activities and has not noticed a change in his level of exertion or activity recently. Echocardiogram obtained on this admission reveals impai red LV systolic function with ejection fraction 40-45%, basal inferior, basal inferoseptal, mid inferior and mid inferoseptal LV wall motion hypokinesia. When compared to most recent echocardiogram from May 2019 at that time had normal LV systolic function with no significant wall motion abnormalities. DIAGNOSTICS EKG reveals sinus mechanism, T-wave inversions inferiorly and nonspecific abno rmalities anterolaterally. Laboratory reviewed, WBC 8.8, hemoglobin 13.5, platelets 203, sodium 138, potassium 4.1, creatinine 0.79, CRP less than 5, LDL 59 and TSH 0.86. Current cardiac medications include aspirin 162 mg daily, doxazosin 1 mg daily, Lopressor 12.5 mg daily, pravastatin 10 mg daily and lisinopril 1.25 mg daily. REVIEW OF SYSTEMS At the time of my exam: CONSTITUTIONAL: Denies fever or chills. CARDIOVASCULAR: Denies chest pain, shortness of breath, orthopnea, PND or palpitations. RESPIRATORY: Denies cough. GASTROINTESTINAL: Denies abdominal pain, diarrhea, constipation, nausea or vomiting. MUSCULOSKELETAL: Denies myalgias. NEUROLOGIC: Complains of right eye blurriness. Denies numbness, tingling, headacbe or weakness. ENDOCRINE: Denies fatigue, weight change, polydipsia or polyurina. GENITOURINARY: Denies burning, hematuria or urgency with micturation. HEMATOLOGIC: Denies history of anemia or bleeding. PHYSICAL EXAMINATION Blood pressure 153/74 heart rate 68 afebrile and maintaining oxygen saturation on room air. CONSTITUTIONAL: No apparent distress. HEENT: Head is normocephalic. Pupils are equal, round. Sclerae anicteric. Mucous membranes of the mouth are moist. No JVD. No carotid bruit. CHEST EXAMINATION: Lungs are clear to auscultation. No chest wall tenderness is noted on palpation or with deep breathing. HEART EXAMINATION: Regular rate and rhythm. S1, S2 heard. No murmurs, gallops or rub. ABDOMEN: Soft, nontender. Positive bowel sounds. EXTREMITIES: 2+ peripheral pulses, no lower extremity edema and no calf tenderness. NEUROLOGIC EXAMINATION: Patient is awake, alert and oriented x3. ASSESSMENT Pre-operative evaluation CVA Carotid stenosis Coronary artery disease s\p PCI RCA 2019 Hypertension Diabetes mellitus Dyslipidemia New onset acute systolic heart failure, clinically euvolemic Ischemic cardiomyopathy PLAN Clinically he is not in fluid overload. No evidence to suggest active heart failure, however he does have new wall motion abnormalities on recent echocardiogram. There are no acute contraindications to undergo surgical interv ention. Dr. Moeller discussed with Dr. Watts. Recommend cautious fluid administration intraoperatively. Increase lisinopril to 5 mg daily. We will continue to follow and make recommendations accordingly. Thank you kindly for this consultation. Nurse Practitioner note has been reviewed, I agree with a documented findings and plan of care. Patient was seen and examined. Past Medical History Past Medical History: Cancer, Diabetes Mellitus, Osteoarthritis (OA), Prostate Disorder Additional Past Medical History / Comment(s): Enlarged prostate, basal cell carcinoma top of head, kidney stones, blocked nicole carotid arteries, 07/31/2018 Stent to (L)subclav History of Any Multi-Drug Resistant Organisms: None Reported Past Surgical History: Back Surgery, Cholecystectomy, Orthopedic Surgery Additional Past Surgical History / Comment(s): nicole carpel tunnel,heel spur,basal cell removed from scalp Past Anesthesia/Blood Transfusion Reactions: No Reported Reaction Past Psychological History: No Psychological Hx Reported Smoking Status: Former smoker Past Alcohol Use History: Occasional Additional Past Alcohol Use History / Comment(s): quit smoking ,smoked for approx 30yrs 1ppd Past Drug Use History: None Reported - Past Family History Father History Unknown: Yes Mother Family Medical History: No Reported History Medications and Allergies Home Medications Medication Instructions Recorded Confirmed Type Cholecalciferol [Vitamin D3 (25 100 mcg PO AC-SUPPER 05/10/16 10/31/20 History Mcg = 1000 Iu)] Doxazosin [Cardura] 1 mg PO HS 05/10/16 10/31/20 History Pravastatin Sodium [Pravachol] 10 mg PO HS 11/22/16 10/31/20 History Aspirin [[place] Aspirin EC] 162 mg PO DAILY 10/31/20 10/31/20 History Magnesium Oxide [Mag-Ox] 400 mg PO HS 10/31/20 10/31/20 History Metoprolol Tartrate [Lopressor] 12.5 mg PO DAILY 10/31/20 10/31/20 History lisinopriL [Zestril] 1.25 mg PO AC-SUPPER 10/31/20 10/31/20 History metFORMIN HCL ER [Glucophage Xr] 1,000 mg PO AC-BID 10/31/20 10/31/20 History Allergies Allergy/AdvReac Type Severity Reaction Status Date / Time tamsulosin [From Flomax] Allergy Rash/Hives Verified 10/31/20 12:52 Physical Exam Vitals: Vital Signs Temp Pulse Resp BP Pulse Ox 11/02/20 03:13 97.7 F 68 19 153/74 99 11/02/20 02:00 55 L 18 11/01/20 23:58 97.6 F 55 L 18 126/55 98 11/01/20 20:00 97.9 F 67 16 165/70 98 11/01/20 16:00 97.7 F 77 20 203/74 98 11/01/20 12:00 63 20 169/73 98 Intake and Output 11/01/20 11/02/20 11/02/20 22:59 06:59 14:59 Intake Total 600 600 Balance 600 600 Intake: Intake, IV Titration 600 600 Amount Sodium Chloride 0.9% 1, 600 600 000 ml @ 100 mls/hr IV . Q10H [facility] Rx#:[id number] Other: Voiding Method Toilet Toilet # Voids 1 2 Weight 89.4 kg Results 11/02/20 06:14 11/02/20 06:14 Cardiac Enzymes 11/02/20 Range/Units 06:14 AST 21 (17-59) U/L CBC 11/02/20 Range/Units 06:14 WBC 8.8 (3.8-10.6) k/uL RBC 3.90 L (4.30-5.90) m/uL Hgb 13.5 (13.0-17.5) gm/dL Hct 40.5 (39.0-53.0) % Plt Count 203 (150-450) k/uL Comprehensive Metabolic Panel 11/02/20 Range/Units 06:14 Sodium 138 (137-145) mmol/L Potassium 4.1 (3.5-5.1) mmol/L Chloride 105 (98-107) mmol/L Carbon Dioxide 28 (22-30) mmol/L BUN 16 (9-20) mg/dL Creatinine 0.79 (0.66-1.25) mg/dL Glucose 170 H (74-99) mg/dL Calcium 8.9 (8.4-10.2) mg/dL AST 21 (17-59) U/L ALT 18 (4-49) U/L Alkaline Phosphatase 43 (38-126) U/L Total Protein 5.6 L (6.3-8.2) g/dL Albumin 3.3 L (3.5-5.0) g/dL Current Medications Generic Name Dose Route Start Last Admin Trade Name Freq PRN Reason Stop Dose Admin Acetaminophen 650 mg 10/31/20 12:45 Acetaminophen Tab 325 Mg Tab PO Q6HR PRN Mild Pain or Fever > 100.5 Aspirin 81 mg 11/02/20 09:00 11/02/20 08:59 Aspirin 81 Mg PO 81 mg DAILY MACHELLE Administration Atorvastatin Calcium 80 mg 11/01/20 21:00 11/01/20 20:50 Atorvastatin 80 Mg Tab PO 80 mg HS MACHELLE Administration Cholecalciferol 100 mcg 11/01/20 17:30 11/01/20 17:45 Cholecalciferol 25 Mcg (1000 Iu) Tablet PO 100 mcg AC-SUPPER MACHELLE Administration Clopidogrel Bisulfate 75 mg 11/01/20 09:00 11/02/20 08:59 Clopidogrel 75 Mg Tab PO 75 mg DAILY MACHELLE Administration Doxazosin Mesylate 1 mg 11/01/20 21:00 11/01/20 20:50 Doxazosin 1 Mg Tab PO 1 mg HS MACHELLE Administration Sodium Chloride 1,000 mls @ 100 mls/hr 10/31/20 15:45 11/02/20 04:45 Saline 0.9% IV 100 mls/hr .Q10H MACHELLE Administration Insulin Aspart 0 unit 10/31/20 21:00 11/02/20 06:17 Insulin Aspart (Novolog) 100 Unit/Ml Vial SQ 1 unit ACHS MACHELLE Administration Protocol Lisinopril 5 mg 11/02/20 09:00 11/02/20 08:59 Lisinopril 5 Mg Tab PO 5 mg DAILY MACHELLE Administration Magnesium Oxide 400 mg 11/01/20 21:00 11/01/20 20:50 Magnesium Oxide 400 Mg Tab PO 400 mg HS MACHELLE Administration Metformin HCl 1,000 mg 11/01/20 07:30 11/02/20 06:09 Metformin 500 Mg Tab PO Not Given AC-BID MACHELLE Metoprolol Tartrate 12.5 mg 11/01/20 09:00 11/02/20 08:59 Metoprolol Tartrate 12.5 Mg Tab PO 12.5 mg DAILY MACHELLE Administration Naloxone HCl 0.2 mg 10/31/20 12:45 Naloxone 0.4 Mg/Ml 1 Ml Vial IV Q2M PRN Opioid Reversal Ondansetron HCl 4 mg 10/31/20 12:45 Ondansetron 4 Mg/2 Ml Vial IVP Q8HR PRN Nausea And Vomiting Intake and Output 11/01/20 11/02/20 11/02/20 22:59 06:59 14:59 Intake Total 600 600 Balance 600 600 Intake: Intake, IV Titration 600 600 Amount Sodium Chloride 0.9% 1, 600 600 000 ml @ 100 mls/hr IV . Q10H [facility] Rx#:[id number] Other: Voiding Method Toilet Toilet # Voids 1 2 Weight 89.4 kg 11/02/20 06:14 11/02/20 06:14
[2020-11-02 12:03] LABS: Glucose,Whole Blood 159 mg/dL (75-99)
--- NOTE | 2020-11-02 13:22 | P.PN ---
Subjective Progress Note Date: 11/02/20 11/02/2020: No change. Still with no vision in the right eye. No new symptoms. No headache. 11/01/2020: Patient was seen for follow-up. Patient initially seen by Dr. Rakesh Singer yesterday. Please refer to his note for details. Patient came to the hospital yesterday at 10:45 AM. Patient was cleaning the yard, went inside his home to have a coffee break, when he suddenly noticed loss of vision in the right eye. He saw some flashes. He immediately came to the hospital. Patient was sent for ophthalmology evaluation, and was diagnosed with ischemic optic neuritis of the right eye. Patient was referred back to the ER. Patient underwent CTA of the head and neck, which revealed multiple areas of significant stenosis involving both carotid arteries. There is probably more than 90% stenosis of the proximal ICAs bilaterally. Mild fusiform stenosis proximal right MINAL. Patient was loaded with Plavix 300 mg and aspirin 325 mg. Patient's ESR was normal. Patient was taking aspirin 162 mg at home. Brain MRI showed atrophy with chronic appearing periventricular white matter ischemic changes. No acute infarcts or acute ischemic changes took on for right eye blindness. 2-D echo showed normal left and her size. Mild concentric LVH EF is 40-45%. Basal inferior, basal inferior septal, mid inferior, mid inferior septal left- ventricular wall motions are hypokinetic. Left atrium is mildly dilated. Mitral valve leaflets are mildly thickened. EKG shows normal sinus rhythm. Patient has history of diabetes for last 10-15 years, hypertension. He has smoked half pack per day for 33 years, quit at age 49. Objective - Vital Signs Vital signs: Vital Signs Temp 97.7 F 11/02/20 03:13 Pulse 68 11/02/20 03:13 Resp 19 11/02/20 03:13 BP 153/74 11/02/20 03:13 Pulse Ox 99 11/02/20 03:13 Intake & Output 11/01/20 11/02/20 11/02/20 18:59 06:59 18:59 Intake Total 720 1200 Balance 720 1200 Weight 89.4 kg Intake: Intake, IV Titration 1200 Amount Sodium Chloride 0.9% 1, 1200 000 ml @ 100 mls/hr IV . Q10H MACHELLE Rx#:[id number] Oral 720 Other: Voiding Method Toilet # Voids 2 2 - Exam No significant vision right eye. Patient could count 3 fingers, then 5 fingers were presented. He was able to count 2 fingers then 3 fingers were presented. He was able to recognize the eyeglasses, but not the pen. Rest of the examination nonfocal. - Labs CBC & Chem 7: 11/02/20 06:14 11/02/20 06:14 Labs: Abnormal Lab Results - Last 24 Hours (Table) 11/01/20 11/01/20 11/02/20 Range/Units 17:01 20:43 06:08 RBC (4.30-5.90) m/uL MCV (80.0-100.0) fL RDW (11.5-15.5) % Glucose (74-99) mg/dL POC Glucose (mg/dL) 178 H 176 H 165 H (75-99) mg/dL Total Protein (6.3-8.2) g/dL Albumin (3.5-5.0) g/dL 11/02/20 11/02/20 11/02/20 Range/Units 06:14 06:14 12:01 RBC 3.90 L (4.30-5.90) m/uL MCV 104.0 H (80.0-100.0) fL RDW 17.5 H (11.5-15.5) % Glucose 170 H (74-99) mg/dL POC Glucose (mg/dL) 159 H (75-99) mg/dL Total Protein 5.6 L (6.3-8.2) g/dL Albumin 3.3 L (3.5-5.0) g/dL Assessment and Plan Assessment: * Acute ischemic optic neuritis, right eye * Bilateral ICA stenosis > 90%, likely symptomatic on the right. * Hypertension * Diabetes * X tobacco use Plan: * Patient will undergo right CEA today. * He will also need left CEA as well in the near future. * Continue dual antiplatelet medications. * ESR is 2, CRP <5.0. No evidence of temporal arteritis. * Hemoglobin A1c 7.0 * Patient's OD echo was also abnormal, would defer recommendations to IM. * Lipid panel with cholesterol 125, LDL 59, HDL 37 and triglycerides 146. Continue high-dose statins.
[2020-11-02 15:46] VITALS: BP 161/66; PULSE 58; RESP 20; TEMP 97.6
[2020-11-02 17:05] LABS: Glucose,Whole Blood 140 mg/dL (75-99)
--- NOTE | 2020-11-02 18:53 | P.DS ---
Providers Date of admission: 11/01/20 10:46 Expected date of discharge: 11/02/20 Attending physician: Nithin Gifford Consults: 10/31/20 12:45 Consult Physician Urgent Consulting Provider: Christopher Singer Consult Reason/Comments: Ischemic optic neuritis Do you want consulting provider notified?: Yes 10/31/20 14:33 Consult Physician Urgent Consulting Provider: Brady Watts Consult Reason/Comments: carotid stenosis. Right visual loss likely right carotid Do you want consulting provider notified?: Yes 11/01/20 14:05 Consult Physician Urgent Consulting Provider: Paulette Haley Consult Reason/Comments: right ischemic optic neuritis Do you want consulting provider notified?: Yes 11/01/20 14:16 Consult Physician Routine Consulting Provider: Alexis Sherman Consult Reason/Comments: Stroke, cardiac clearence for carotid surgery Do you want consulting provider notified?: Yes Primary care physician: Dayana Holguin Hospital Course: Diagnoses on discharge: Acute vision loss in the right eye likely related to acute ischemic stroke given the sudden loss of vision Severe bilateral carotid artery stenosis Underlying history of coronary artery disease status post angioplasty and stent placement in 2019 Underlying history of hypertension Underlying history of hyperlipidemia Underlying history of diabetes mellitus type II Hospital course: Rah Howard, is an 80-year-old male who presented to [facility] emergency room with a chief complaint of right eye blurred vision that started suddenly last evening patient was evaluated earlier this morning by Dr. Paulette Haley, rn wound, and likely diagnosis was a stroke patient was sent to emergency room. On evaluation in the emergency room vital examination reveals a temperature of 97.5 pulse 85 respiration 18 and blood pressure 210/83 pulse ox 99% on room air, laboratory data revealed a white blood count of 9.0 hemoglobin 13.9 platelet count 234, sodium 138 potassium 4.4 chloride 105 CO2 25 BUN 17 creatinine 0.85 glucose level was 230 hemoglobin A1c 7.0 AST and ALT were normal troponin level less than 0.012 TSH was normal coronary virus PCR was negative, computed tomography scan of the brain done without contrast in the emergency room revealed mild atrophy with chronic appearing periventricular white matter ischemic type changes. Computed tomography angiogram of the carotid arteries revealed multiple area of significant stenosis involving both carotid arteries at more than 90% stenosis of the proximal internal carotid artery bilaterally. Patient was admitted to telemetry floor neurology consultation vascular surgery consultation and cardiology consultation were requested. Past medical history significant for history of hypertension, history of hyperlipidemia, history of coronary artery disease with previous history of stent placement in 2019, history of [id number] diabetes mellitus. On review of systems patient is alert and oriented 3 he is complaining of blurred vision over the right eye otherwise he denies any complaints there is no fever or chills no headache or dizziness no chest pain no shortness of breath no cough no nausea or vomiting no abdominal pain no diarrhea no blood in the stools no burning with urination no frequency or urgency and no hematuria there is no weakness or numbness in any of the extremities there is no change in speech or gait On 11/02/2020 Patient is alert an oriented x3 currently resting comfortably in chair. blurred vision to left eye remains denies any changes. denies any new neuro symptoms. planning for carotid endarectomy today. denies any chest pain or shortness of breath. denies any urinary burning or frequency. denies any nausea vomiting or diarrhea. Patient was evaluated by Dr. Watts and surgery could not be done today it will be rescheduled for Sunday, recommendation by vascular surgery is to discharge patient on Plavix and he will be admitted again on Sunday for surgery, this was discussed with patient and his family and they are agreeable patient will be discharged home today he was given a prescription for Plavix, Lipitor 80 mg, and lisinopril 5 mg once daily, follow-up with Dr. Holguin within 1 week Plan - Discharge Summary New Discharge Prescriptions: New Clopidogrel [Plavix] 75 mg PO DAILY 30 Days #30 tab lisinopriL [Zestril] 5 mg PO DAILY tab Aspirin 81 mg PO DAILY chew Atorvastatin [Lipitor] 80 mg PO HS 30 Days #30 tab Continue Doxazosin [Cardura] 1 mg PO HS Cholecalciferol [Vitamin D3 (25 Mcg = 1000 Iu)] 100 mcg PO AC-SUPPER Magnesium Oxide [Mag-Ox] 400 mg PO HS metFORMIN HCL ER [Glucophage Xr] 1,000 mg PO AC-BID Metoprolol Tartrate [Lopressor] 12.5 mg PO DAILY Discontinued Pravastatin Sodium [Pravachol] 10 mg PO HS Aspirin [[place] Aspirin EC] 162 mg PO DAILY lisinopriL [Zestril] 1.25 mg PO AC-SUPPER Discharge Medication List Cholecalciferol [Vitamin D3 (25 Mcg = 1000 Iu)] 100 mcg PO AC-SUPPER 05/10/16 [History] Doxazosin [Cardura] 1 mg PO HS 05/10/16 [History] Magnesium Oxide [Mag-Ox] 400 mg PO HS 10/31/20 [History] Metoprolol Tartrate [Lopressor] 12.5 mg PO DAILY 10/31/20 [History] metFORMIN HCL ER [Glucophage Xr] 1,000 mg PO AC-BID 10/31/20 [History] Aspirin 81 mg PO DAILY chew 11/02/20 [Rx] Atorvastatin [Lipitor] 80 mg PO HS 30 Days #30 tab 11/02/20 [Rx] Clopidogrel [Plavix] 75 mg PO DAILY 30 Days #30 tab 11/02/20 [Rx] lisinopriL [Zestril] 5 mg PO DAILY tab 11/02/20 [Rx] Follow up Appointment(s)/Referral(s): Dayana Holguin MD [Primary Care Provider] - 1-2 days Patient Instructions/Handouts: Carotid Endarterectomy (PRE), Carotid Artery Disease (DC), Stroke (DC) Discharge Disposition: HOME SELF-CARE
--- NOTE | 2020-11-04 08:27 | CDI ---
Documentation Clarification Form Date: 11/04/20 From: Marybeth Wiggins Phone: Admit Date: 11/01/2020 10:46:00 AM Patient Name: Rah Howard Visit Number: [id number] Discharge Date: 11/02/2020 06:26:00 PM ATTENTION: The Clinical Documentation Specialists (CDI) and [facility] Coding Staff appreciate your assistance in clarifying documentation. Please respond to the clarification below the line at the bottom and electronically sign. The CDI & [facility] Coding staff will review the response and follow-up if needed. Please note: Queries are made part of the Legal Health Record. If you have any questions, please contact the author of this message via ITS. Dr. Nithin Gifford, The patient has uncontrolled Type II diabetes, as indicated in neurology consult. POC Glucose:225, 174, 212, 196, 178, 176, 165, 159, 140 Glucose: 230, 170 A1c: 7.0 Treatment: blood glucose monitoring ACHS, healthy heart diet, NovoLOG per protocol Per [facility] 2016 - query the provider for clarification whether the patient has hyperglycemia or hypoglycemia so that the appropriate code may be reported - uncontrolled diabetes indicates that the patient's blood sugar is not at an acceptable level, because it is either too high or too low. In order to capture the severity of Illness and necessary documentation specificity, please clarify if Type 2 uncontrolled diabetes is: Hyperglycemia Other, please specify Unable to Determine Hyperglycemia MTDD
== END 2020-11-02 18:26 | disposition home or self-care (01) | DRG 64 ==
LOC: EC 10:45 → 3SCARD 13:11 → OBSVTOIN 11-01 10:46
PROVIDERS: ADMIT Internal Medicine; ATTEND Internal Medicine
DX: I63.9 Cerebral infarction, unspecified (principal); I50.21 Acute systolic (congestive) heart failure; H46.8 Other optic neuritis; E11.51 Type 2 diabetes mellitus with diabetic peripheral angiopathy without gangrene; I11.0 Hypertensive heart disease with heart failure; E11.65 Type 2 diabetes mellitus with hyperglycemia; H47.011 Ischemic optic neuropathy, right eye; Z20.822 Contact with and (suspected) exposure to COVID-19; I65.23 Occlusion and stenosis of bilateral carotid arteries; H54.61 Unqualified visual loss, right eye, normal vision left eye; E78.5 Hyperlipidemia, unspecified; N40.0 Benign prostatic hyperplasia without lower urinary tract symptoms; I25.5 Ischemic cardiomyopathy; I08.3 Combined rheumatic disorders of mitral, aortic and tricuspid valves; I25.10 Atherosclerotic heart disease of native coronary artery without angina pectoris; M19.90 Unspecified osteoarthritis, unspecified site; R53.1 Weakness; H91.90 Unspecified hearing loss, unspecified ear; Z79.82 Long term (current) use of aspirin; Z79.84 Long term (current) use of oral hypoglycemic drugs; Z95.5 Presence of coronary angioplasty implant and graft; Z79.899 Other long term (current) drug therapy; Z87.891 Personal history of nicotine dependence; Z85.828 Personal history of other malignant neoplasm of skin; Z90.49 Acquired absence of other specified parts of digestive tract; Z95.828 Presence of other vascular implants and grafts; Z87.442 Personal history of urinary calculi; Z87.39 Personal history of other diseases of the musculoskeletal system and connective tissue; Z98.890 Other specified postprocedural states; Z88.8 Allergy status to other drugs, medicaments and biological substances
CPT/HCPCS: 36415; 70450; 70496; 70498; 70551; 80053; 80061; 83036; 84443; 84484; 85025; 86140; 87635; 93005; 93306; 93880; 99285

== ENCOUNTER 2020-11-05 10:18 | Inpatient (IN) | payer MEDICARE, OTHER ==
[2020-11-03 09:14] VITALS: BMI 29.2
[~2020-11-05 10:18] MED LIST changes: -ASPIRIN 325 MG TAB PO ONE; -DEXAMETHASONE SOD PHOSPHATE 10 MG/ML 1 ML VIAL IV ONE; +DEXAMETHASONE SOD PHOSPHATE 4 MG/ML 1 ML VIAL IV ONE; -LACTATED RINGERS 1,000 ML IV SCH; -LIDOCAINE 1% 20 ML VIAL (10MG/ML) FOR IV START INTRADERMA PRN; +MIDAZOLAM 2 MG/2 ML VIAL IV PRN; +NITROGLYCERIN-D5W PMX 50 MG in DEXTROSE/WATER 1 250ML.BAG IV SCH; +PHENYLEPHRINE 40 MG in SODIUM CHLORIDE 0.9% 250 ML IV SCH; -SCOPOLAMINE 1.5MG/72HR PATCH TRANSDERM ONE
[2020-11-05] MEDS: LACTATED RINGERS 1,000 ML IV SCH ×3 (10:59→18:13)
[2020-11-05 11:26] LABS: Glucose,Whole Blood 169 mg/dL (75-99)
[2020-11-05] MEDS ORDERED: fentaNYL (PF) 50 MCG/ML 2 ML AMP IVP ONE (11:31)
[2020-11-05] MEDS ORDERED: PROPOFOL 10 MG/ML 20 ML VIAL IV ONE (13:18)
[2020-11-05] MEDS ORDERED: NITROGLYCERIN-D5W PMX 50 MG/250 ML BOTTLE IV ONE (13:18)
[2020-11-05] MEDS ORDERED: PHENYLEPHRINE-0.9% NACL SYG 1,000 MCG/10 ML SYRINGE ONE (13:18)
[2020-11-05] MEDS ORDERED: SUCCINYLCHOLINE CHLORIDE 100 MG/5 ML SYR IV ONE (13:18)
[2020-11-05] MEDS ORDERED: HEPARIN SODIUM,PORCINE 10,000 UNIT/ML 1 ML VIAL ONE (13:18)
[2020-11-05] MEDS ORDERED: fentaNYL (PF) 50 MCG/ML 2 ML AMP ONE (13:18)
[2020-11-05] MEDS ORDERED: PROTAMINE SULFATE 10 MG/ML 5 ML VIAL IV ONE (13:18)
[2020-11-05] MEDS ORDERED: LIDOCAINE 1% INJ 10MG/ML (20 ML MDV) SQ ONE (13:49)
[2020-11-05] MEDS ORDERED: HEPARIN SODIUM (1,000 UNIT/ML) 2,000 UNIT in SODIUM CHLORIDE 0.9% 1,000 ML IRRIGATION ONE (13:50)
[2020-11-05] MEDS ORDERED: ceFAZolin 2,000 MG in SODIUM CHLORIDE 0.9% 500 ML IRRIGATION ONE (13:52)
[2020-11-05] MEDS ORDERED: LACTATED RINGERS 1,000 ML IV ONE (15:30)
[2020-11-05] MEDS ORDERED: GELATIN SPONGE,ABSORB (LARGE) 1 EACH SPONGE TOPICAL ONE (15:39)
[2020-11-05] MEDS ORDERED: THROMBIN (BOVINE) 5,000 UNIT VIAL TOPICAL ONE (15:39)
[2020-11-05] MEDS ORDERED: HYDROcodone/APAP 5-325MG 1 EACH TAB PO PRN (15:44)
[2020-11-05] MEDS ORDERED: ACETAMINOPHEN TAB 325 MG TAB PO PRN (15:44)
[2020-11-05] MEDS ORDERED: MAG HYDROX/AL HYDROX/SIMETH 30 ML CUP PO PRN (15:44)
[2020-11-05] MEDS ORDERED: TRIMETHOBENZAMIDE 100 MG/ML 2 ML VIAL IM PRN (15:44)
[2020-11-05] MEDS ORDERED: BENZOCAINE/MENTHOL LOZENG 1 EACH LOZENGE MUCOUS MEM PRN (15:44)
[2020-11-05] MEDS ORDERED: MORPHINE SULFATE 2 MG/ML SYRINGE IVP PRN (15:44)
--- NOTE | 2020-11-05 15:50 | P.OP ---
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 He was worked up with carotid Doppler and CT angiogram as well as MRIs which demonstrated severe right carotid artery stenosis greater than 70%. He presents today for right carotid endarterectomy and patch a ngioplasty. Description of Procedure: After written informed consent was obtained the patient all risks benefits and competitions were described the patient is brought to the operative suite and laid in a supine position. The area of the neck was prepped and draped in usual sterile fashion after appropriate anesthetic was performed per the anesthesiologist. A timeout was performed in normal fashion antibiotics were administered prior to incision. An oblique incision was then created just anterior to the sternocleidomastoid musculature with a 10 blade scalpel and dissection was carried down to the carotid sheath. The carotid sheath was then entered after facial vein was located and suture ligated in normal fashion. The common carotid, internal carotid, external carotid and superior thyroid arteries were located and dissected free in a meticulous fashion circumferentially and controlled with vessel loops. Attention was then placed to locating the vagus nerve as well as hypoglossal nerve which were both spared. Once controlled patient was administered heparin and followed with ACTs for appropriate heparinization. Once ACT was above 200 the proximal and distal aspects of the dissection were then controlled with vascular clamps. Arteriotomy was then created with 11 blade scalpel and extended with Dillard Funez scissors. Utilizing pressure tubing stump pressures were obtained and were 75. No shunt was required and endarterectomy was then performed with a [place] and elevator. The plaque was then feathered at the distal aspect and the internal carotid artery and removed. The area was copiously irrigated with heparinized saline and all free debris was removed. A 7-0 Prolene suture was then placed to tack the distal aspect of the dissection at the internal carotid artery. A 0.8 x 8 cm bovine pericardial patch was then chosen and patch angioplasty was performed with 6-0 Prolene suture in a running fashion. Prior to last sutures being placed the inflow was released flushing any free debris out of the patch. This was reclamped and the internal carotid artery was released revealing good brisk flow and was once again reclamped. The external carotid and superior thyroid artery were then released followed by the common carotid artery to allow any free debris to be flushed into the external system. Final sutures were placed and secured. Internal carotid artery control was then released. Good pulsatile flow was noted through the patch and a Doppler was utilized demonstrating good brisk flow into the internal, external carotid arteries without any signs of obstruction. Hemostasis was then assured with Gelfoam and thrombin. A 10-[place] FRANCESCO drain was then placed in normal fashion and secured with 3-0 nylon suture. The incision was then closed in a multilayer fashion after hemostasis was assured. The skin was then cleansed and dressings were placed. Patient tolerated the procedure well and was following commands and moving all extremities. Patient was then sent to PACU for recovery.
[2020-11-05] MEDS: HEPARIN SODIUM,PORCINE 5,000 UNIT/ML 1 ML VIAL SQ SCH (17:30)
[2020-11-05 17:36] LABS: Glucose,Whole Blood 273 mg/dL (75-99)
[2020-11-05 17:48] LABS: Anisocytosis Slight; HCT 40.5 % (39.0-53.0); HGB 12.9 gm/dL (13.0-17.5); MCHC 31.9 g/dL (31.0-37.0); MCV 103.6 fL (80.0-100.0); Macrocytosis Moderate; Mean Platelet Volume 10.8; Platelet Count 183 k/uL (150-450); RBC 3.91 m/uL (4.30-5.90); WBC 9.3 k/uL (3.8-10.6)
[2020-11-05 18:03] LABS: Band Neutrophils % 7 %; Monocytes # (M) 0.09 k/uL (0-1.0); Neutrophils % (M) 78 %; Nucleated Red Blood Cells 0 /100 WBC (0-0); Total Cells Counted 100
[2020-11-05] MEDS: INSULIN ASPART (NovoLOG) 100 UNIT/ML VIAL SQ SCH ×2 (18:42→23:53)
[2020-11-05] MEDS: PHENYLEPHRINE 40 MG in SODIUM CHLORIDE 0.9% 250 ML IV SCH (20:45)
[2020-11-05 21:14] LABS: Glucose,Whole Blood 181 mg/dL (75-99)
[2020-11-05 21:14] LABS: Glucose,Whole Blood 227 mg/dL (75-99)
[2020-11-06] MEDS: LACTATED RINGERS 1,000 ML IV SCH ×2 (00:14→08:13)
[2020-11-06] MEDS: HEPARIN SODIUM,PORCINE 5,000 UNIT/ML 1 ML VIAL SQ SCH ×2 (00:14→08:22)
[2020-11-06 04:11] LABS: African American GFR (CKD) >90 (>60 ml/min/1.73 sqM); Anion Gap 5 mmol/L; Blood Urea Nitrogen 22 mg/dL (9-20); Calcium 8.4 mg/dL (8.4-10.2); Carbon Dioxide 25 mmol/L (22-30); Chloride 105 mmol/L (98-107); Glucose 154 mg/dL (74-99); Non-African American GFR(CKD) 83 (>60 ml/min/1.73 sqM); Potassium 4.4 mmol/L (3.5-5.1); Sodium 135 mmol/L (137-145)
[2020-11-06 04:26] LABS: Anisocytosis Slight; Basophils % (A) 0 %; Eosinophils % (A) 0 %; HCT 37.3 % (39.0-53.0); HGB 12.6 gm/dL (13.0-17.5); Lymphocytes # (A) 1.4 k/uL (1.0-4.8); Lymphocytes % (A) 13 %; MCH 34.6 pg (25.0-35.0); MCHC 33.9 g/dL (31.0-37.0); Macrocytosis Moderate; Mean Platelet Volume 10.8; Monocytes # (A) 0.7 k/uL (0-1.0); Monocytes % (A) 6 %; Neutrophils # (A) 8.9 k/uL (1.3-7.7); Neutrophils % (A) 79 %; Platelet Count 188 k/uL (150-450); RBC 3.65 m/uL (4.30-5.90); RDW 17.6 % (11.5-15.5); WBC 11.2 k/uL (3.8-10.6)
--- NOTE | 2020-11-06 06:43 | P.CNPUL ---
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 The patient underwent further investigation including a carotid Doppler, CT angiogram as well as MRI which demonstrated severe carotid artery stenosis greater than 70%. The patient presented today to the hospital and the patient underwent right carotid endarterectomy and patch angioplasty. Surgery was done with estimated blood los s of 20 mL. The patient recovered well and the patient is currently back in ICU for further monitoring. The patient is doing well. No focal neurological deficit at this point in time. Pulse ox is 97% on room air. Hemodynamically stable on no pressors. The surgical wound site is dry clean and intact. Note that the patient is diabetic on Glucophage patient has history of hypertension. The patient also has history of hyperlipidemia. Review of Systems Constitutional: Denies chills, Denies fever Eyes: right blurred vision, right loss of vision, denies as per HPI, denies bulging eye, denies decreased vision, denies diplopia, denies discharge, denies dry eye, denies irritation, denies itching, denies pain, denies photophobia, denies loss of peripheral vision, denies tunnel vision/blind spots Ears: deny: decreased hearing, ear discharge, earache, tinnitus Ears, nose, mouth and throat: Reports as per HPI Breasts: absent: as per HPI, gynecomastia Cardiovascular: Reports as per HPI Respiratory: Reports as per HPI Gastrointestinal: Reports as per HPI Genitourinary: Reports as per HPI Musculoskeletal: Reports as per HPI Musculoskeletal: absent: ankle pain, ankle stiffness, ankle swelling Integumentary: Reports as per HPI Neurological: Reports as per HPI Psychiatric: Reports as per HPI Endocrine: Reports as per HPI Hematologic/Lymphatic: Reports as per HPI Allergic/Immunologic: Reports as per HPI Past Medical History Past Medical History: Cancer, CVA/TIA, Diabetes Mellitus, Hyperlipidemia, Hypertension, Osteoarthritis (OA), Prostate Disorder Additional Past Medical History / Comment(s): Amaurosis fugax on the right, basal cell carcinoma of the skin, kidney stones, hypertension, hyperlipidemia, diabetes mellitus, currently Dr. baird, stenting of the subclavian artery History of Any Multi-Drug Resistant Organisms: None Reported Past Surgical History: Back Surgery, Cholecystectomy, Orthopedic Surgery Additional Past Surgical History / Comment(s): nicole carpel tunnel,heel spur,basal cell removed from scalp Past Anesthesia/Blood Transfusion Reactions: No Reported Reaction Smoking Status: Former smoker - Past Family History Father History Unknown: Yes Mother Family Medical History: Deep Vein Thrombosis (DVT) Medications and Allergies Home Medications Medication Instructions Recorded Confirmed Type Cholecalciferol [Vitamin D3 (25 100 mcg PO AC-SUPPER 05/10/16 11/05/20 History Mcg = 1000 Iu)] Doxazosin [Cardura] 1 mg PO HS 05/10/16 11/05/20 History Magnesium Oxide [Mag-Ox] 400 mg PO HS 10/31/20 11/05/20 History Metoprolol Tartrate [Lopressor] 12.5 mg PO DAILY 10/31/20 11/05/20 History metFORMIN HCL ER [Glucophage Xr] 1,000 mg PO AC-BID 10/31/20 11/05/20 History Aspirin 81 mg PO DAILY chew 11/02/20 11/03/20 Rx Atorvastatin [Lipitor] 80 mg PO HS 30 Days #30 tab 11/02/20 11/05/20 Rx Clopidogrel [Plavix] 75 mg PO DAILY 30 Days #30 tab 11/02/20 11/05/20 Rx lisinopriL [Zestril] 5 mg PO DAILY tab 11/02/20 11/05/20 Rx Allergies Allergy/AdvReac Type Severity Reaction Status Date / Time tamsulosin [From Flomax] Allergy Rash/Hives Verified 11/05/20 10:57 Physical Exam Vitals: Vital Signs Temp Pulse Pulse Resp BP BP Pulse Ox 11/05/20 16:30 60 18 109/54 97 11/05/20 16:15 67 16 103/54 100 11/05/20 15:56 97.6 F 67 16 110/56 99 11/05/20 11:05 97.7 F 60 16 180/76 98 11/05/20 11:02 97.7 F 60 16 166/72 98 Intake and Output 11/05/20 11/05/20 11/05/20 06:59 14:59 22:59 Intake Total 1053.0 300 Output Total 15 Balance 1053.0 285 Intake: IV 1053.0 300 Output: Estimated Blood Loss 15 Other: Weight 91.4 kg The patient appeared well nourished and normally developed. Vital signs as documented. Head exam is unremarkable. No scleral icterus or corneal arcus noted. Neck is without jugular venous distension, thyromegaly, or carotid bruits. Carotid upstrokes are brisk bilaterally. This surgical wound site over the right carotid is dry clean and intact. No signs of any hematoma. Lungs are clear to auscultation and percussion. Cardiac exam reveals the PMI to be ailyn lly sized and situated. Rhythm is regular. First and second heart sounds normal. No murmurs, rubs or gallops. Abdominal exam reveals normal bowel sounds, no masses, no organomegaly and no aortic enlargement. Extremities are nonedematous and both femoral and pedal pulses are normal.Examination of the skin revealed no evidence of significant rashes, suspicious appearing nevi or other concerning lesions.Neurologically, the patient is awake and alert and the patient does not have any focal neurological deficit. Cranial nerves are essentially intact. Results - Laboratory Findings CBC and BMP: 11/06/20 03:59 11/06/20 03:59 Abnormal lab findings: Abnormal Labs 11/05/20 11:24 POC Glucose (mg/dL) 169 H Assessment and Plan Plan: 1 severe right-sided carotid artery stenosis. Endarterectomy. The patient is postop day #0. No focal neurological deficits. The patient is hemodynamically stable and the patient is currently being monitored in the intensive care unit. 2 history of amaurosis fugax, secondary to current artery stenosis, the patient has some loss in the vision with recovery 3 coronary artery disease with previous angioplasty and stenting in 2019 4 hypertension 5 hyperlipidemia 6 diabetes mellitus type 2 7 BPH Plan Monitor neurological exam Monitor blood pressure Surgical wound is dry clean and intact Dilaudid for pain control We'll start resuming home medications of tomorrow We'll start him on Dereck-Synephrine to maintain a systolic blood pressure between 110 and 160. Keep in ICU for the next 24 hours TO monitoring this patient.
--- NOTE | 2020-11-06 06:50 | P.PN ---
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 The patient underwent further investigation including a carotid Doppler, CT angiogram as well as MRI which demonstrated severe carotid artery stenosis greater than 70%. The patient presented today to the hospital and the patient underwent right carotid endarterectomy and patch angioplasty. Surgery was done with estimated blood loss of 20 mL. The patient recovered well and the patient is currently back in ICU for further monitoring. The patient is doing well. No focal neurological deficit at this point in time. Pulse ox is 97% on room air. Hemodynamically stable on no pressors. The surgical wound site is dry clean and intact. Note that the patient is diabetic on Glucophage patient has history of hypertension. The patient also has history of hyperlipidemia. Today's evaluation of 11/06/2020, the patient is looking very well. He is moving all 4 extremities. No new onset visual deficits. No motor dysfunction in the upper and lower extremities. No aphasia. Surgical wound site is dry clean and intact. Output from the FRANCESCO drain in his right neck is minimal at this point in time. He was started on Dereck-Synephrine to maintain a systolic blood pressure above 110 and he was running at 0.04 mcg/kg per minute. His most recent BP is 142/48. Heart rate is around 58 and it is sinus and he gets somewhat bradycardic when he sleeps. Pulse ox 97% on 2 L of oxygen by nasal cannula. He has adequate urine output. Labs from today shows a hemoglobin of 12.6, BUN of 22, creatinine of 0.8, electrolytes all within normal limits. He is afebrile. No other issues for now. Objective - Vital Signs Vital signs: Vital Signs Temp 97.7 F 11/06/20 04:00 Pulse 67 11/06/20 06:00 Resp 17 11/06/20 06:00 BP 136/54 11/06/20 06:00 Pulse Ox 97 11/06/20 06:00 Intake & Output 11/05/20 11/05/20 11/06/20 06:59 18:59 06:59 Intake Total 1428.0 1173 Output Total 15 495 Balance 1413.0 678 Weight 91.4 kg 93.3 kg Intake: IV 1353.0 858 Lactated Ringers 1,000 ml 825 @ 75 mls/hr IV .[id number] [facility] [place] Rx#:[id number] Pressure bag 33 Intake, IV Titration 75 75 Amount Lactated Ringers 1,000 ml 75 75 @ 75 mls/hr IV .[id number] [facility] Rx#:[id number] Oral 240 Output: Drainage 20 Right Neck 20 Urine 475 Estimated Blood Loss 15 Other: Voiding Method Urinal ABP, PAP, CO, CI - Last Documented Arterial Blood Pressure 133/51 - Exam The patient appeared well nourished and normally developed. Vital signs as documented. Head exam is unremarkable. No scleral icterus or corneal arcus noted. Neck is without jugular venous distension, thyromegaly, or carotid bruits. Carotid upstrokes are brisk bilaterally. This surgical wound site over the right carotid is dry clean and intact. No signs of any hematoma. Lungs are clear to auscultation and percussion. Cardiac exam reveals the PMI to be normally sized and situated. Rhythm is regular. First and second heart sounds normal. No murmurs, rubs or gallops. Abdominal exam reveals normal bowel sounds, no masses, no organomegaly and no aortic enlargement. Extremities are nonedematous and both femoral and pedal pulses are normal.Examination of the skin revealed no evidence of significant rashes, suspicious appearing nevi or other concerning lesions.Neurologically, the patient is awake and alert and the patient does not have any focal neurological deficit. Cranial nerves are essentially intact. - Labs CBC & Chem 7: 11/06/20 03:59 11/06/20 03:59 Labs: Abnormal Lab Results - Last 24 Hours (Table) 11/05/20 11/05/20 11/05/20 Range/Units 11:24 17:16 17:20 WBC (3.8-10.6) k/uL RBC 3.91 L (4.30-5.90) m/uL Hgb 12.9 L (13.0-17.5) gm/dL Hct (39.0-53.0) % MCV 103.6 H (80.0-100.0) fL RDW 18.0 H (11.5-15.5) % Neutrophils # (1.3-7.7) k/uL Neutrophils # (Manual) 7.90 H (1.3-7.7) k/uL Sodium (137-145) mmol/L BUN (9-20) mg/dL Glucose (74-99) mg/dL POC Glucose (mg/dL) 169 H 273 H (75-99) mg/dL 11/05/20 11/05/20 11/06/20 Range/Units 18:22 21:13 03:59 WBC 11.2 H (3.8-10.6) k/uL RBC 3.65 L (4.30-5.90) m/uL Hgb 12.6 L (13.0-17.5) gm/dL Hct 37.3 L (39.0-53.0) % MCV 102.0 H (80.0-100.0) fL RDW 17.6 H (11.5-15.5) % Neutrophils # 8.9 H (1.3-7.7) k/uL Neutrophils # (Manual) (1.3-7.7) k/uL Sodium (137-145) mmol/L BUN (9-20) mg/dL Glucose (74-99) mg/dL POC Glucose (mg/dL) 227 H 181 H (75-99) mg/dL 11/06/20 Range/Units 03:59 WBC (3.8-10.6) k/uL RBC (4.30-5.90) m/uL Hgb (13.0-17.5) gm/dL Hct (39.0-53.0) % MCV (80.0-100.0) fL RDW (11.5-15.5) % Neutrophils # (1.3-7.7) k/uL Neutrophils # (Manual) (1.3-7.7) k/uL Sodium 135 L (137-145) mmol/L BUN 22 H (9-20) mg/dL Glucose 154 H (74-99) mg/dL POC Glucose (mg/dL) (75-99) mg/dL Assessment and Plan Plan: 1 severe right-sided carotid artery stenosis. Endarterectomy. The patient is postop day #1 No focal neurological deficits. The patient is hemodynamically stable and the patient is currently being monitored in the intensive care unit. Patient is currently on Dereck-Synephrine drip at 0.05 mcg/kg per minute to maintain a systolic blood pressure above 110. This can be gradually weaned off and discontinued today. He is doing extremely well. Surgical wound site is dry clean and intact. FRANCESCO drain output is minimal at this point in time. 2 history of amaurosis fugax, secondary to current artery stenosis, the patient has some loss in the vision with recovery, and the patient has recovered some of his vision following this event and he does have some ongoing impairments. 3 coronary artery disease with previous angioplasty and stenting in 2019 4 hypertension 5 hyperlipidemia 6 diabetes mellitus type 2 7 BPH Plan Monitor neurological exam Monitor blood pressure, wean off the Dereck-Synephrine to maintain a systolic blood pressure above 110 and hold his outpatient antihypertensive medications for now Surgical wound is dry clean and intact Dilaudid for pain control We'll start resuming home medications including Lipitor and Glucophage and aspirin and Plavix Provide breakfast this morning Possible home today. Awaiting final vascular surgery evaluation.
[2020-11-06 06:57] LABS: Glucose,Whole Blood 158 mg/dL (75-99)
[2020-11-06] MEDS: INSULIN ASPART (NovoLOG) 100 UNIT/ML VIAL SQ SCH ×2 (07:01→11:54)
[2020-11-06] MEDS ORDERED: metFORMIN 500 MG TAB PO SCH (07:30)
[2020-11-06 08:25] VITALS: TEMP 98.1
[2020-11-06] MEDS ORDERED: CLOPIDOGREL 75 MG TAB PO SCH (09:00)
[2020-11-06] MEDS ORDERED: ASPIRIN 81 MG PO SCH ×2 (09:00)
[2020-11-06] MEDS: PHENYLEPHRINE 40 MG in SODIUM CHLORIDE 0.9% 250 ML IV SCH (11:34)
[2020-11-06 14:02] VITALS: BP 137/54; PULSE 62; RESP 22
--- NOTE | 2020-11-06 14:46 | P.DS ---
Providers Date of admission: 11/05/20 10:18 Attending physician: Brady Watts DO Consults: 11/05/20 15:44 Consult Physician Routine Consulting Provider: Nithin Gifford Consult Reason/Comments: medical management Do you want consulting provider notified?: Yes 11/05/20 16:04 Consult Physician Routine Consulting Provider: Blake Epstein Consult Reason/Comments: ICU admission Do you want consulting provider notified?: Already Contacted [facility] Course: The patient is a 80-year-old male who was brought back in for symptomatic right ICA stenosis noted to undergo a right carotid endarterectomy. He successfully had this on 11/05/2020. The following day he has maintained his blood pressure control, his family urinate. He has ambulated. He is tolerating a diet without issue. His neurovascular intact. Cranial nerve II-12 are grossly intact. He denies any changes or issues overall. The drain has been removed. He is found be in satisfactory condition for discharge Patient Condition at Discharge: Good Plan - Discharge Summary Discharge Rx Participant: Yes New Discharge Prescriptions: No Action Doxazosin [Cardura] 1 mg PO HS Cholecalciferol [Vitamin D3 (25 Mcg = 1000 Iu)] 100 mcg PO AC-SUPPER Clopidogrel [Plavix] 75 mg PO DAILY 30 Days #30 tab lisinopriL [Zestril] 5 mg PO DAILY tab Magnesium Oxide [Mag-Ox] 400 mg PO HS metFORMIN HCL ER [Glucophage Xr] 1,000 mg PO AC-BID Metoprolol Tartrate [Lopressor] 12.5 mg PO DAILY Aspirin 81 mg PO DAILY chew Atorvastatin [Lipitor] 80 mg PO HS 30 Days #30 tab Discharge Medication List Cholecalciferol [Vitamin D3 (25 Mcg = 1000 Iu)] 100 mcg PO AC-SUPPER 05/10/16 [History] Doxazosin [Cardura] 1 mg PO HS 05/10/16 [History] Magnesium Oxide [Mag-Ox] 400 mg PO HS 10/31/20 [History] Metoprolol Tartrate [Lopressor] 12.5 mg PO DAILY 10/31/20 [History] metFORMIN HCL ER [Glucophage Xr] 1,000 mg PO AC-BID 10/31/20 [History] Aspirin 81 mg PO DAILY chew 11/02/20 [Rx] Atorvastatin [Lipitor] 80 mg PO HS 30 Days #30 tab 11/02/20 [Rx] Clopidogrel [Plavix] 75 mg PO DAILY 30 Days #30 tab 11/02/20 [Rx] lisinopriL [Zestril] 5 mg PO DAILY tab 11/02/20 [Rx] Follow up Appointment(s)/Referral(s): Brady Watts DO [STAFF PHYSICIAN] - 10 Days Activity/Diet/Wound Care/Special Instructions: May shower tomorrow. No driving. Resume regular diet. Resume home medications Discharge Disposition: HOME SELF-CARE
--- NOTE | 2020-11-06 15:03 | P.CONS ---
History of Present Illness - Reason for Consult Consult date: 11/06/20 - History of Present Illness Rah Howard, is an 80-year-old male who was admitted to [facility] by Dr. Watts, and underwent right carotid endarterectomy with patch angioplasty, he was admitted to intensive care unit post procedure consultation was requested for medical management while hospitalized. Patient was recently admitted to [facility] telemetry floor at that time he had acute vision loss in the right eye likely related to acute ischemic stroke given the sudden loss of vision, He also had evidence of severe bilateral carotid artery stenosis, he was evaluated by neurology cardiology and vascular surgery decision was made to discharge patient home and to readmit him on 11/05/2020 for right carotid endarterectomy. Past medical history significant for history of hypertension, history of hyperlipidemia, history of coronary artery disease with previous history of st ent placement in 2019, history of [id number] diabetes mellitus. On review of systems patient is alert and oriented 3 he is complaining of blurred vision over the right eye otherwise he denies any complaints there is no fever or chills no headache or dizziness no chest pain no shortness of breath no cough no nausea or vomiting no abdominal pain no diarrhea no blood in the stools no burning with urination no frequency or urgency and no hematuria there is no weakness or numbness in any of the extremities there is no change in speech or gait Past Medical History Past Medical History: Cancer, CVA/TIA, Diabetes Mellitus, Hyperlipidemia, Hypertension, Osteoarthritis (OA), Prostate Disorder Additional Past Medical History / Comment(s): Amaurosis fugax on the right, basal cell carcinoma of the skin, kidney stones, hypertension, hyperlipidemia, diabetes mellitus, currently Dr. baird, stenting of the subclavian artery History of Any Multi-Drug Resistant Organisms: None Reported Past Surgical History: Back Surgery, Cholecystectomy, Orthopedic Surgery Additional Past Surgical History / Comment(s): nicole carpel tunnel,heel spur,basal cell removed from scalp Past Anesthesia/Blood Transfusion Reactions: No Reported Reaction Smoking Status: Former smoker - Past Family History Father History Unknown: Yes Mother Family Medical History: Deep Vein Thrombosis (DVT) Medications and Allergies Home Medications Medication Instructions Recorded Confirmed Type Cholecalciferol [Vitamin D3 (25 100 mcg PO AC-SUPPER 05/10/16 11/05/20 History Mcg = 1000 Iu)] Doxazosin [Cardura] 1 mg PO HS 05/10/16 11/05/20 History Magnesium Oxide [Mag-Ox] 400 mg PO HS 10/31/20 11/05/20 History Metoprolol Tartrate [Lopressor] 12.5 mg PO DAILY 10/31/20 11/05/20 History metFORMIN HCL ER [Glucophage Xr] 1,000 mg PO AC-BID 10/31/20 11/05/20 History Aspirin 81 mg PO DAILY chew 11/02/20 11/03/20 Rx Atorvastatin [Lipitor] 80 mg PO HS 30 Days #30 tab 11/02/20 11/05/20 Rx Clopidogrel [Plavix] 75 mg PO DAILY 30 Days #30 tab 11/02/20 11/05/20 Rx lisinopriL [Zestril] 5 mg PO DAILY tab 11/02/20 11/05/20 Rx Allergies Allergy/AdvReac Type Severity Reaction Status Date / Time tamsulosin [From Flomax] Allergy Rash/Hives Verified 11/05/20 10:57 Physical Exam Vitals: Vital Signs Temp Pulse Pulse Pulse Resp BP BP 11/06/20 08:00 98.1 F 69 22 144/56 11/06/20 07:30 70 17 139/65 11/06/20 07:00 68 14 117/57 11/06/20 06:30 52 L 18 81/59 11/06/20 06:00 67 17 136/54 11/06/20 05:30 69 13 135/58 11/06/20 05:00 57 L 12 126/59 11/06/20 04:30 53 L 15 135/63 11/06/20 04:00 97.7 F 56 L 11 L 124/58 11/06/20 03:30 50 L 18 125/56 11/06/20 03:00 55 L 15 121/58 11/06/20 02:30 46 L 15 117/57 11/06/20 02:00 49 L 20 109/59 11/06/20 01:30 45 L 19 117/52 11/06/20 01:00 55 L 20 111/68 11/06/20 00:30 56 L 16 118/61 11/06/20 00:00 99 F 55 L 13 142/72 11/05/20 23:30 61 17 109/58 11/05/20 23:00 57 L 12 117/56 11/05/20 22:30 61 14 137/64 11/05/20 22:00 59 L 16 113/48 11/05/20 21:30 58 L 14 115/56 11/05/20 21:08 11/05/20 21:00 72 13 131/64 11/05/20 20:30 97.8 F 68 14 103/51 11/05/20 20:00 46 L 13 125/58 11/05/20 19:30 56 L 11 L 106/51 11/05/20 19:00 50 L 6 L 98/53 11/05/20 18:45 56 L 10 L 103/47 11/05/20 18:30 50 L 14 102/47 11/05/20 18:15 54 L 12 100/44 11/05/20 18:00 52 L 15 100/44 11/05/20 17:45 67 12 108/56 11/05/20 17:30 57 L 12 108/56 11/05/20 17:20 97.3 F L 58 L 12 108/56 11/05/20 17:10 57 L 10 L 11/05/20 16:45 57 L 18 107/52 11/05/20 16:30 60 18 109/54 11/05/20 16:15 67 16 103/54 11/05/20 15:56 97.6 F 67 16 110/56 11/05/20 11:05 97.7 F 60 16 180/76 11/05/20 11:02 97.7 F 60 16 BP Pulse Ox 11/06/20 08:00 97 11/06/20 07:30 97 11/06/20 07:00 97 11/06/20 06:30 97 11/06/20 06:00 97 11/06/20 05:30 97 11/06/20 05:00 98 11/06/20 04:30 98 11/06/20 04:00 98 11/06/20 03:30 97 11/06/20 03:00 98 11/06/20 02:30 98 11/06/20 02:00 98 11/06/20 01:30 98 11/06/20 01:00 97 11/06/20 00:30 97 11/06/20 00:00 11/05/20 23:30 97 11/05/20 23:00 98 11/05/20 22:30 99 11/05/20 22:00 99 11/05/20 21:30 98 11/05/20 21:08 98 11/05/20 21:00 96 11/05/20 20:30 97 11/05/20 20:00 99 11/05/20 19:30 100 11/05/20 19:00 99 11/05/20 18:45 99 11/05/20 18:30 98 11/05/20 18:15 97 11/05/20 18:00 97 11/05/20 17:45 73 L 11/05/20 17:30 96 11/05/20 17:20 96 11/05/20 17:10 11/05/20 16:45 97 11/05/20 16:30 97 11/05/20 16:15 100 11/05/20 15:56 99 11/05/20 11:05 98 11/05/20 11:02 166/72 98 Intake and Output 11/05/20 11/06/20 11/06/20 22:59 06:59 14:59 Intake Total 924 624 374.23 Output Total 240 270 200 Balance 684 354 174.23 Intake: IV 534 624 156 Lactated Ringers 1,000 ml 225 600 150 @ 75 mls/hr IV .[id number] [facility] Rx#:[id number] Pressure bag 9 24 6 Intake, IV Titration 150 218.23 Amount Lactated Ringers 1,000 ml 150 @ 75 mls/hr IV .[id number] [facility] Rx#:[id number] Phenylephrine 40 mg In 218.23 Sodium Chloride 0.9% 250 ml @ 0.5 MCG/KG/MIN 17. 412 mls/hr IV .[id number] [facility] Rx#:[id number] Oral 240 Output: Drainage 20 Right Neck 20 Urine 225 250 200 Estimated Blood Loss 15 Other: Voiding Method Urinal Urinal Weight 93.3 kg ABP, PAP, CO, CI - Last 8 Hours Arterial Blood Pressure 131/45 Arterial Blood Pressure 138/55 Arterial Blood Pressure 140/53 Arterial Blood Pressure 120/43 Arterial Blood Pressure 133/51 Arterial Blood Pressure 130/47 Arterial Blood Pressure 132/45 Arterial Blood Pressure 141/43 Arterial Blood Pressure 147/48 Arterial Blood Pressure 114/40 Arterial Blood Pressure 129/46 Arterial Blood Pressure 108/37 Arterial Blood Pressure 117/38 Arterial Blood Pressure 107/39 In general patient is alert and oriented in no apparent distress HEENT head normocephalic and atraumatic Neck is supple, no JVD Chest exam reveals a few scattered crackles no wheezing Cardiac exam reveals regular heart sounds S1 and S2 no gallops no murmurs Abdomen is soft nontender no organomegaly with normal bowel sounds Extremity exam reveals no edema no cyanosis or clubbing Neurological examination reveals significant vision loss in the right eye otherwise no gross focal deficit Results CBC & Chem 7: 11/06/20 03:59 11/06/20 03:59 Labs: Abnormal Lab Results - Last 24 Hours (Table) 11/05/20 11/05/20 11/05/20 Range/Units 11:24 17:16 17:20 WBC (3.8-10.6) k/uL RBC 3.91 L (4.30-5.90) m/uL Hgb 12.9 L (13.0-17.5) gm/dL Hct (39.0-53.0) % MCV 103.6 H (80.0-100.0) fL RDW 18.0 H (11.5-15.5) % Neutrophils # (1.3-7.7) k/uL Neutrophils # (Manual) 7.90 H (1.3-7.7) k/uL Sodium (137-145) mmol/L BUN (9-20) mg/dL Glucose (74-99) mg/dL POC Glucose (mg/dL) 169 H 273 H (75-99) mg/dL 11/05/20 11/05/20 11/06/20 Range/Units 18:22 21:13 03:59 WBC 11.2 H (3.8-10.6) k/uL RBC 3.65 L (4.30-5.90) m/uL Hgb 12.6 L (13.0-17.5) gm/dL Hct 37.3 L (39.0-53.0) % MCV 102.0 H (80.0-100.0) fL RDW 17.6 H (11.5-15.5) % Neutrophils # 8.9 H (1.3-7.7) k/uL Neutrophils # (Manual) (1.3-7.7) k/uL Sodium (137-145) mmol/L BUN (9-20) mg/dL Glucose (74-99) mg/dL POC Glucose (mg/dL) 227 H 181 H (75-99) mg/dL 11/06/20 11/06/20 Range/Units 03:59 06:56 WBC (3.8-10.6) k/uL RBC (4.30-5.90) m/uL Hgb (13.0-17.5) gm/dL Hct (39.0-53.0) % MCV (80.0-100.0) fL RDW (11.5-15.5) % Neutrophils # (1.3-7.7) k/uL Neutrophils # (Manual) (1.3-7.7) k/uL Sodium 135 L (137-145) mmol/L BUN 22 H (9-20) mg/dL Glucose 154 H (74-99) mg/dL POC Glucose (mg/dL) 158 H (75-99) mg/dL Assessment and Plan Plan: Severe right sided carotid artery stenosis status post endarterectomy on 11/05/2020 Recent acute vision loss in the right eye likely related to acute ischemic stroke given the sudden loss of vision Severe bilateral carotid artery stenosis Underlying history of coronary artery disease status post angioplasty and stent placement in 2019 Underlying history of hypertension Underlying history of hyperlipidemia Underlying history of diabetes mellitus type II Today patient was seen and examined in ICU Medication and labs were reviewed Will follow closely
[2020-11-06] MEDS ORDERED: ATORVASTATIN 80 MG TAB PO SCH (21:00)
[2020-11-07 03:32] LABS: Glucose,Whole Blood 182 mg/dL (75-99)
== END 2020-11-06 14:59 | disposition home or self-care (01) | DRG 38 ==
LOC: 2ORMAIN 10:18 → 2SICU 15:38
PROVIDERS: ADMIT Surgery; ATTEND Surgery
PROC: 03CK0ZZ Extirpation of Matter from Right Internal Carotid Artery, Open Approach (ICD-10-PCS; principal; 2020-11-05 12:00)
PROC: 03UK0KZ Supplement Right Internal Carotid Artery with Nonautologous Tissue Substitute, Open Approach (ICD-10-PCS; principal; 2020-11-05 12:00)
DX: I65.23 Occlusion and stenosis of bilateral carotid arteries (principal); H34.9 Unspecified retinal vascular occlusion; E11.9 Type 2 diabetes mellitus without complications; I10 Essential (primary) hypertension; E78.5 Hyperlipidemia, unspecified; H54.61 Unqualified visual loss, right eye, normal vision left eye; I25.10 Atherosclerotic heart disease of native coronary artery without angina pectoris; N40.0 Benign prostatic hyperplasia without lower urinary tract symptoms; M19.90 Unspecified osteoarthritis, unspecified site; Z79.82 Long term (current) use of aspirin; Z79.02 Long term (current) use of antithrombotics/antiplatelets; Z79.84 Long term (current) use of oral hypoglycemic drugs; Z79.899 Other long term (current) drug therapy; Z85.828 Personal history of other malignant neoplasm of skin; Z87.442 Personal history of urinary calculi; Z90.49 Acquired absence of other specified parts of digestive tract; Z87.19 Personal history of other diseases of the digestive system; Z87.39 Personal history of other diseases of the musculoskeletal system and connective tissue; Z87.891 Personal history of nicotine dependence; Z98.890 Other specified postprocedural states; Z88.8 Allergy status to other drugs, medicaments and biological substances; Z83.2 Family history of diseases of the blood and blood-forming organs and certain disorders involving the immune mechanism; Z95.5 Presence of coronary angioplasty implant and graft; Z86.73 Personal history of transient ischemic attack (TIA), and cerebral infarction without residual deficits; R00.1 Bradycardia, unspecified
CPT/HCPCS: 36415; 80048; 85025; 86850; 86900; 86901; 88304; 88305; 88311

== ENCOUNTER 2021-03-13 01:29 | Inpatient (IN) | payer MEDICARE, OTHER ==
[2021-03-13] MEDS ORDERED: HYDROcodone/APAP 5-325MG 1 EACH TAB PO STA (02:16)
[2021-03-13] MEDS ORDERED: METOCLOPRAMIDE 5 MG TAB PO STA (02:16)
--- NOTE | 2021-03-13 03:42 | CT ---
EXAMINATION TYPE: CT brain wo con DATE OF EXAM: 03/13/2021 COMPARISON: 10/31/2020 HISTORY: [facility] CT DLP: 1119.4 mGycm Automated exposure control for dose reduction was used. Images obtained without contrast. There is cerebral atrophy. There is no mass effect nor midline shift. There is no evidence of intracr anial hemorrhage. There is wedge-shaped area of hypodensity in the lateral right occipital lobe measu ring 4 x 3 cm and consistent with subacute infarct. The calvarium is intact. There is symmetric thala kemar calcification. Skull base is intact. IMPRESSION: There is subacute ischemic infarct right occipital lobe which is a change compared to old exam. Cereb ral atrophy.
--- NOTE | 2021-03-13 04:49 | ED ---
Headache HPI - General Chief Complaint: Headache Stated Complaint: Headache Time Seen by Provider: 03/13/21 01:46 Mode of arrival: ambulatory Limitations: no limitations - History of Present Illness Initial Comments: This patient is an 81-year-old man who presents to be evaluated for bifrontal headache that has been going on since 11 AM yesterday morning. Patient states that it is been getting progressively worse. It is now worst headache that he has ever had. The patient had tried taking some Tylenol but it didn't give him much relief. Patient has not noted any new neurologic symptoms. 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 This occurred in October and he had carotid artery surgery at the end of that month. He has not noted any change in vision. No change in other sentences. No weakness or numbness. MD Complaint: headache Onset/Timin -: hour(s) Onset Description: gradual Location: right, left, frontal Severity: severe Quality: aching Consistency: constant Improves With: nothing Worsens With: none Treatments Prior to Arrival: Acetaminophen - Related Data Home Medications Medication Instructions Recorded Confirmed Cholecalciferol [Vitamin D3 (25 100 mcg PO AC-SUPPER 05/10/16 11/05/20 Mcg = 1000 Iu)] Doxazosin [Cardura] 1 mg PO HS 05/10/16 11/05/20 Magnesium Oxide [Mag-Ox] 400 mg PO HS 10/31/20 11/05/20 Metoprolol Tartrate [Lopressor] 12.5 mg PO DAILY 10/31/20 11/05/20 metFORMIN HCL ER [Glucophage XR] 1,000 mg PO AC-BID 10/31/20 11/05/20 Previous Rx's Medication Instructions Recorded Aspirin 81 mg PO DAILY chew 11/02/20 Atorvastatin [Lipitor] 80 mg PO HS 30 Days #30 tab 11/02/20 Clopidogrel [Plavix] 75 mg PO DAILY 30 Days #30 tab 11/02/20 lisinopriL [Zestril] 5 mg PO DAILY tab 11/02/20 Allergies Allergy/AdvReac Type Severity Reaction Status Date / Time tamsulosin [From Flomax] Allergy Rash/Hives Verified 03/13/21 01:45 Review of Systems ROS Statement: Those systems with pertinent positive or pertinent negative responses have been documented in the HPI. ROS Other: All systems not noted in ROS Statement are negative. Constitutional: Denies: fever Eyes: Denies: eye pain, vision change ENT: Denies: ear pain, hearing loss, congestion Respiratory: Denies: cough, dyspnea Cardiovascular: Denies: chest pain, palpitations, orthopnea, syncope Gastrointestinal: Reports: diarrhea (Chronic). Denies: abdominal pain, vomiting Genitourinary: Denies: dysuria Musculoskeletal: Denies: back pain Skin: Denies: rash Neurological: Reports: as per HPI, headache. Denies: weakness, numbness, confusion, vertigo Past Medical History Past Medical History: Cancer, CVA/TIA, Diabetes Mellitus, Hyperlipidemia, Hypertension, Osteoarthritis (OA), Prostate Disorder Additional Past Medical History / Comment(s): Amaurosis fugax on the right, basal cell carcinoma of the skin, kidney stones, hypertension, hyperlipidemia, diabetes mellitus, currently Dr. baird, stenting of the subclavian artery History of Any Multi-Drug Resistant Organisms: None Reported Past Surgical History: Back Surgery, Cholecystectomy, Orthopedic Surgery Additional Past Surgical History / Comment(s): nicole carpel tunnel,heel spur,basal cell removed from scalp Past Anesthesia/Blood Transfusion Reactions: No Reported Reaction Past Psychological History: Anxiety, Depression Smoking Status: Former smoker Past Alcohol Use History: None Reported Past Drug Use History: None Reported - Past Family History Father History Unknown: Yes Mother Family Medical History: Deep Vein Thrombosis (DVT) General Exam Limitations: no limitations General appearance: alert, in no apparent distress Head exam: Present: atraumatic, normocephalic Eye exam: Present: normal appearance, EOMI. Absent: scleral icterus, conjunctival injection ENT exam: Present: normal oropharynx Neck exam: Present: normal inspection, full ROM Respiratory exam: Present: normal lung sounds bilaterally. Absent: respiratory distress, wheezes, rales, rhonchi, stridor Cardiovascular Exam: Present: regular rate, normal rhythm, systolic murmur (Grade 2/6 systolic ejection murmur). Absent: diastolic murmur, rubs, gallop GI/Abdominal exam: Present: soft. Absent: distended, tenderness, guarding, rebound, rigid Extremities exam: Present: normal inspection, normal capillary refill. Absent: pedal edema, calf tenderness Back exam: Present: normal inspection. Absent: CVA tenderness (R), CVA tenderness (L) Neurological exam: Present: alert, oriented X3, CN II-XII intact. Absent: motor sensory deficit Skin exam: Present: warm, dry, intact, normal color. Absent: rash Course Vital Signs 03/13/21 03/13/21 03/13/21 01:43 03:30 05:10 Temperature 98.2 F 97.6 F Pulse Rate 66 63 64 Respiratory 18 16 16 Rate Blood Pressure 180/77 138/65 180/84 O2 Sat by Pulse 96 98 96 Oximetry Medical Decision Making - Medical Decision Making Patient is an 81-year-old man here for new onset of frontal headache. He is not having any neurologic symptoms here. Patient is sent for computed tomography scan given that is the worst headache of life. There is finding of what appears be new ischemic stroke versus the study from October of this year and given that patient will be admitted to have neurology consultation. Again he has not having any neurologic symptoms here. - Lab Data Result diagrams: 03/13/21 05:00 03/13/21 05:00 Disposition Clinical Impression: Headache Narrative: Possible subacute ischemic stroke right occipital area. Disposition: ADMITTED IP TO THIS HOSP Condition: Fair
[2021-03-13] MEDS: SODIUM CHLORIDE 0.9% 1,000 ML IV SCH (05:10)
[2021-03-13 05:21] LABS: Anisocytosis Slight; Basophils # (A) 0.1 k/uL (0-0.2); Basophils % (A) 1 %; Eosinophils # (A) 0.1 k/uL (0-0.7); Eosinophils % (A) 1 %; HCT 39.8 % (39.0-53.0); HGB 13.3 gm/dL (13.0-17.5); Lymphocytes # (A) 1.7 k/uL (1.0-4.8); Lymphocytes % (A) 19 %; MCH 35.1 pg (25.0-35.0); MCHC 33.4 g/dL (31.0-37.0); Macrocytosis Moderate; Mean Platelet Volume 11.4; Monocytes # (A) 0.4 k/uL (0-1.0); Monocytes % (A) 5 %; Neutrophils # (A) 6.6 k/uL (1.3-7.7); Neutrophils % (A) 73 %; Platelet Count 210 k/uL (150-450); RBC 3.79 m/uL (4.30-5.90); RDW 17.6 % (11.5-15.5); WBC 9.1 k/uL (3.8-10.6)
[2021-03-13 05:31] LABS: African American GFR (CKD) >90 (>60 ml/min/1.73 sqM); Anion Gap 5 mmol/L; Blood Urea Nitrogen 32 mg/dL (9-20); Calcium 9.6 mg/dL (8.4-10.2); Carbon Dioxide 26 mmol/L (22-30); Chloride 106 mmol/L (98-107); Glucose 162 mg/dL (74-99); Non-African American GFR(CKD) 82 (>60 ml/min/1.73 sqM); Potassium 4.4 mmol/L (3.5-5.1); Sodium 137 mmol/L (137-145)
[2021-03-13 06:07] LABS: Glucose,Whole Blood 158 mg/dL (75-99)
--- NOTE | 2021-03-13 09:37 | P.HPIM ---
History of Present Illness H&P Date: 03/13/21 Chief Complaint: headache This is a 81-year-old male patient of Dr. Holguin. Patient presented to the ER with complaints of ongoing severe headache that started around 11 AM yesterday morning. Patient reports that he had been working out in the blood when he started to experience headache that progressively increased throughout the day. Patient describes headache as frontal headache across the forehead. Patient denies any other neurological symptoms. Patient denies loss of vision confusion or confusion. Patient does have a past medical history of CVA in October in which she has vision loss right eye followed by a carotid endarterectomy with Dr. Curran in October of this year. Additional medical history includes diabetes mellitus, hyperlipidemia, hypertension, prostate disorder and cholecystectomy. Head CT was performed in ER showing a subacute ischemic infarct right occipital lobe which is change compared to old exam cerebral atrophy. Troponins negative. Patient denies any recent illness. At this time headache has resolved. Patient denies chest pain or shortness of breath. Patient denies nausea vomiting or diarrhea. Patient denies any urinary burning or frequency. Review of Systems Please refer to HPI otherwise unremarkable Past Medical History Past Medical History: Cancer, CVA/TIA, Diabetes Mellitus, Hyperlipidemia, Hypertension, Osteoarthritis (OA), Prostate Disorder Additional Past Medical History / Comment(s): Amaurosis fugax on the right, basal cell carcinoma of the skin, kidney stones, hypertension, hyperlipidemia, diabetes mellitus, currently DrCourtney baird, stenting of the subclavian artery History of Any Multi-Drug Resistant Organisms: None Reported Past Surgical History: Back Surgery, Cholecystectomy, Orthopedic Surgery Additional Past Surgical History / Comment(s): nicole carpel tunnel,heel spur,basal cell removed from scalp Past Anesthesia/Blood Transfusion Reactions: No Reported Reaction Past Psychological History: Anxiety, Depression Smoking Status: Former smoker Past Alcohol Use History: None Reported Past Drug Use History: None Reported - Past Family History Father History Unknown: Yes Mother Family Medical History: Deep Vein Thrombosis (DVT) Medications and Allergies Home Medications Medication Instructions Recorded Confirmed Type Cholecalciferol [Vitamin D3 (25 100 mcg PO AC-SUPPER 05/10/16 03/13/21 History Mcg = 1000 Iu)] Doxazosin [Cardura] 1 mg PO HS 05/10/16 03/13/21 History Magnesium Oxide [Mag-Ox] 400 mg PO HS 10/31/20 03/13/21 History Metoprolol Tartrate [Lopressor] 12.5 mg PO DAILY 10/31/20 03/13/21 History metFORMIN HCL ER [Glucophage XR] 1,000 mg PO AC-BID 10/31/20 03/13/21 History Aspirin 81 mg PO DAILY chew 11/02/20 03/13/21 Rx Atorvastatin [Lipitor] 80 mg PO HS 30 Days #30 tab 11/02/20 03/13/21 Rx Clopidogrel [Plavix] 75 mg PO DAILY 30 Days #30 tab 11/02/20 03/13/21 Rx lisinopriL [Zestril] 5 mg PO DAILY tab 11/02/20 03/13/21 Rx Allergies Allergy/AdvReac Type Severity Reaction Status Date / Time tamsulosin [From Flomax] Allergy Rash/Hives Verified 03/13/21 08:50 Physical Exam Vitals: Vital Signs Temp Pulse Pulse Resp BP BP Pulse Ox 03/13/21 07:41 71 16 163/82 95 03/13/21 05:49 97.8 F 69 16 186/74 95 03/13/21 05:10 97.6 F 64 16 180/84 96 03/13/21 03:30 63 16 138/65 98 03/13/21 01:43 98.2 F 66 18 180/77 96 Intake and Output 03/12/21 03/13/21 03/13/21 22:59 06:59 14:59 Intake Total 240 Output Total 180 Balance -180 240 Intake: Oral 240 Output: Urine 180 Other: Voiding Method Toilet # Voids 1 Weight 94.801 kg Head normocephalic Neck supple Lungs clear to auscultation bilaterally no wheezing or crackles Heart regular rate and rhythm S1-S2, no rub or gallop Abdomen is soft nontender nondistended positive bowel sounds no hepatosplenomegaly Extremities no edema Neuro alert and orientated to 3. Equal strength throughout all extremities. No signs of facial droop. Memory intact. 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 Results CBC & Chem 7: 03/13/21 05:00 03/13/21 05:00 Labs: Abnormal Lab Results - Last 24 Hours (Table) 03/13/21 03/13/21 03/13/21 Range/Units 05:00 05:00 06:06 RBC 3.79 L (4.30-5.90) m/uL MCV 105.0 H (80.0-100.0) fL MCH 35.1 H (25.0-35.0) pg RDW 17.6 H (11.5-15.5) % BUN 32 H (9-20) mg/dL Glucose 162 H (74-99) mg/dL POC Glucose (mg/dL) 158 H (75-99) mg/dL Thrombosis Risk Factor Assmnt - Choose All That Apply Any of the Below Risk Factors Present?: Yes Each Factor Represents 1 point: Obesity (BMI >25) Other Risk Factors: Yes Each Risk Factor Represents 3 Points: Age 75 years or older, Family history of DVT/PE Thrombosis Risk Factor Assessment Total Risk Factor Score: 7 Thrombosis Risk Factor Assessment Level: High Risk Assessment and Plan Assessment: 1. Severe headache possible secondary to subacute ischemic stroke. Neurology services have been consulted 2. History of CVA in October of this year with right vision loss 3. Status post endarterectomy for severe bilateral carotid artery stenosis in October with Dr. Curran 4. History of coronary artery disease with stent placement in 2019 5. History of essential hypertension 6. History of hyperlipidemia 7. History of diabetes mellitus type 2 Time with Patient: Greater than 30 (Greater than 60% of the total time spent in counseling and coordination of care)
[2021-03-13] MEDS: lisinopriL 5 MG TAB PO SCH (09:56)
[2021-03-13] MEDS: ATORVASTATIN 40 MG TAB PO SCH (09:56)
[2021-03-13] MEDS: FAMOTIDINE 20 MG TAB PO SCH ×2 (09:56→20:36)
[2021-03-13] MEDS: CLOPIDOGREL 75 MG TAB PO SCH (09:56)
[2021-03-13] MEDS: DOCUSATE 100 MG CAP PO SCH ×3 (09:57→21:24)
[2021-03-13] MEDS: METOPROLOL TARTRATE 12.5 MG TAB PO SCH (09:58)
--- NOTE | 2021-03-13 11:40 | P.CNNES ---
History of Present Illness Consult date: 03/13/21 Requesting physician: Brady Jett Reason for Consult: Subacute ischemic stroke History of Present Illness: This is a tele-neurology consultation performed today on 03/13/2021. Patient is a 81-year-old male came to the hospital early this morning at 1:29 AM for headache. Patient states that he he had a "big headache", that started yesterday at 11 AM. It was involving bifrontal headache which he rated 4/10. Denies any nausea or vomiting. Now the headache is gone.. He denies any problem with the vision, any numbness tingling focal weakness. Denies any slurred speech facial droop or any other stroke symptoms. Denies any previous history of headaches. Vital signs on arrival blood pressure 180/77, pulse rate [address] head showed subacute ischemic infarct right occipital lobe which is a change compared to the old exam. Cerebral atrophy. I reviewed computed tomography scan and agree with the findings. Patient's blood tests shows normal WBC, hemoglobin 13.3, platelets 210. Chem-7 is normal. Hemoglobin A1c 7.3, troponin negative. Patient has been seen by our neurology team on 10/31/2020 admission, for right eye complete vision loss, felt to be related to acute ischemic stroke. Etiology likely artery to artery embolism from symptomatic right carotid stenosis. Patient has history of left subclavian steal syndrome status post in 2018. Patient has diabetes, hypertension. Patient's MRI of the brain at that time showed chronic appearing periventricular white matter ischemic changes. No acute infarcts or acute ischemic changes to account for right eye blindness. Patient had undergone right CEA in and of October 2020. Patient states that his vision is about 80% gone in the right eye from the stroke. He feels it is slightly improving with time. He has diabetes which is controlled. Patient at present takes Plavix 75 mg, aspirin 81 mg, Lipitor 80 mg, lisinopril 5 mg, metoprolol 12.5 mg, metformin 1000 mg twice a day doxazosin and vitamin D. Patient states he is compliant with the medication, does not miss the dose. Patient has history of diabetes for last 10-15 years, hypertension. He has smoked half pack per day for 33 years, quit at age 49. Review of Systems As above in detail. Denies any chest pain shortness of breath wheezing or cough. Denies any nausea vomiting diarrhea. Denies any light or noise sensitivity. No trauma. Denies any fever or chills. No history of headaches. No weight loss. No anxiety depression. Patient is hard of hearing. Past Medical History Past Medical History: Cancer, CVA/TIA, Diabetes Mellitus, Hyperlipidemia, Hypertension, Osteoarthritis (OA), Prostate Disorder Additional Past Medical History / Comment(s): Amaurosis fugax on the right, basal cell carcinoma of the skin, kidney stones, hypertension, hyperlipidemia, diabetes mellitus, currently Dr. baird, stenting of the subclavian artery History of Any Multi-Drug Resistant Organisms: None Reported Past Surgical History: Back Surgery, Cholecystectomy, Orthopedic Surgery Additional Past Surgical History / Comment(s): nicole carpel tunnel,heel spur,basal cell removed from scalp Past Anesthesia/Blood Transfusion Reactions: No Reported Reaction Past Psychological History: Anxiety, Depression Smoking Status: Former smoker Past Alcohol Use History: None Reported Past Drug Use History: None Reported - Past Family History Father History Unknown: Yes Mother Family Medical History: Deep Vein Thrombosis (DVT) Medications and Allergies Home Medications Medication Instructions Recorded Confirmed Type Cholecalciferol [Vitamin D3 (25 100 mcg PO AC-SUPPER 05/10/16 03/13/21 History Mcg = 1000 Iu)] Doxazosin [Cardura] 1 mg PO HS 05/10/16 03/13/21 History Magnesium Oxide [Mag-Ox] 400 mg PO HS 10/31/20 03/13/21 History Metoprolol Tartrate [Lopressor] 12.5 mg PO DAILY 10/31/20 03/13/21 History metFORMIN HCL ER [Glucophage XR] 1,000 mg PO AC-BID 10/31/20 03/13/21 History Aspirin 81 mg PO DAILY chew 11/02/20 03/13/21 Rx Atorvastatin [Lipitor] 80 mg PO HS 30 Days #30 tab 11/02/20 03/13/21 Rx Clopidogrel [Plavix] 75 mg PO DAILY 30 Days #30 tab 11/02/20 03/13/21 Rx lisinopriL [Zestril] 5 mg PO DAILY tab 11/02/20 03/13/21 Rx Allergies Allergy/AdvReac Type Severity Reaction Status Date / Time tamsulosin [From Flomax] Allergy Rash/Hives Verified 03/13/21 08:50 Physical Examination - Vital Signs Vital Signs: Vital Signs Temp Pulse Pulse Resp BP BP Pulse Ox 03/13/21 07:41 71 16 163/82 95 03/13/21 05:49 97.8 F 69 16 186/74 95 03/13/21 05:10 97.6 F 64 16 180/84 96 03/13/21 03:30 63 16 138/65 98 03/13/21 01:43 98.2 F 66 18 180/77 96 Intake and Output 03/12/21 03/13/21 03/13/21 22:59 06:59 14:59 Intake Total 240 Output Total 180 Balance -180 240 Intake: Oral 240 Output: Urine 180 Other: Voiding Method Toilet # Voids 1 Weight 94.801 kg Patient is an elderly male, in no acute distress. Patient is alert awake oriented to time place and person. Patient knows it is March and the year is 2020 and that is in [facility] and name of the current president. Speech and language functions are normal. Attention, concentration and fund of knowledge is adequate. On cranial examination, his pupils are round and equal size. The right pupil is less reactive as compared to the left. Patient's visual scott are full on confrontation, extraocular muscles are intact with no nystagmus. Face is symmetric, tongue protrudes to the midline. Palatal elevation and sensation normal, hearing is moderately decreased and shoulder shrug normal, facial sensation normal. Shoulder shrug normal. On muscle strength testing, there is no pronator drift and the strength is normal in arms and legs distally and proximally. Deep tendon reflexes are 1 in the upper limbs, 2 at the knees, 1 ankles and plantar is downgoing bilaterally. Sensory to touch is equal with no neglect. Cerebellar function showed no ataxia for [id number] testing. No dy sdiadochokinesia. Tone and bulk of muscles normal. Gait normal. On general examination, there is no carotid bruit or murmur, S1-S2 audible. Abdomen is soft nontender. Chest is clear. Peripheral pulses are present. There is mild peripheral edema. Results - Laboratory Findings CBC and BMP: 03/13/21 05:00 03/13/21 05:00 Abnormal Lab Findings: Abnormal Labs 03/13/21 03/13/21 03/13/21 05:00 05:00 06:06 RBC 3.79 L MCV 105.0 H MCH 35.1 H RDW 17.6 H BUN 32 H Glucose 162 H POC Glucose (mg/dL) 158 H Assessment and Plan Assessment: * Acute ischemic stroke right occipital lobe, exact cause is uncertain. Rule out cardioembolism. * Transient cephalgia, likely due to above. Now gone. 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 * Status post right CEA October 2020 * Hypertension * Diabetes * X tobacco use Plan: * Continue dual antiplatelet medications. * Continue Lipitor 40 mg. * MRI of the brain to confirm CVA, as his examination is relatively normal. Also check MRA of the head to evaluate for intracranial vasculature status. * Recommend cardiology consultation for SANDAR to evaluate for embolic stroke. * Continue telemetry monitoring to rule out paroxysmal atrial fibrillation. May need loop recorder. * Carotid Doppler. * Hemoglobin A1c. * Discussed with patient's son in detail. * Dr. Christopher Singer to resume neurology service from the morning.
[2021-03-13 12:24] LABS: Glucose,Whole Blood 257 mg/dL (75-99)
--- NOTE | 2021-03-13 12:24 | US ---
EXAMINATION TYPE: US carotid duplex BILAT DATE OF EXAM: 03/13/2021 COMPARISON: US & CTA 10/2020 CLINICAL HISTORY: CVA. Patient has had right endarterectomy since prior exam. EXAM MEASUREMENTS: RIGHT: Peak Systolic Velocity (PSV) cm/sec ----- Right CCA: 73.5 ----- Right ICA: 145.7 ----- Right ECA: 135.7 ICA/CCA ratio: 2.0 RIGHT: End Diastole cm/sec ----- Right CCA: 7.6 ----- Right ICA: 27.4 ----- Right ECA: 0.0 LEFT: Peak Systolic Velocity (PSV) cm/sec ----- Left CCA: 82.3 ----- Left ICA: 190.3 ----- Left ECA: 141.5 ICA/CCA ratio: 2.3 LEFT: End Diastole cm/sec ----- Left CCA: 12.0 ----- Left ICA: 32.3 ----- Left ECA: 0.0 VERTEBRALS (direction of flow): Right Vertebral: Antegrade Left Vertebral: Antegrade Rhythm: Normal Extensive shadowing plaque noted throughout, except at right bulb. Elevated velocities noted left ICA & ECA. IMPRESSION: 1. Extensive bilateral plaque with findings suggestive of 50-69% bilateral stenosis. NASCET criteria was used in interpretation of this exam? Criteria for Assigning % of Stenosis / Diameter reduction (Estimation based on the indirect measurements of the internal carotid artery velocities (ICA PSV). 1. Normal (no stenosis)=ICA PSV < 125 cm/s: ratio < 2.0: ICA EDV<40 cm/s. 2. Less than 50% stenosis=ICA PSV < 125 cm/s: ratio < 2.0: ICA EDV<40 cm/s. 3. 50 to 69% stenosis=ICA PSV of 125 to 230 cm/s: ration 2.0 ? 4.0: ICA EDV 40-100 cm/s. 4. Greater than 70% stenosis to near occlusion= ICA PSV > 230 cm/s: ratio > 4.0: ICA EDV > 100 cm/s. 5. Near occlusion= ICA PSV velocities may be low or undetectable: variable ratio and ICA EDV. 6. Total occlusion=unable to detect flow.
[2021-03-13] MEDS: INSULIN ASPART (NovoLOG) 100 UNIT/ML VIAL SQ SCH ×3 (12:57→20:36)
[2021-03-13 17:06] LABS: Glucose,Whole Blood 138 mg/dL (75-99)
[2021-03-13] MEDS: metFORMIN 500 MG TAB PO SCH (17:41)
[2021-03-13] MEDS: CHOLECALCIFEROL 25 MCG (1000 IU) TABLET PO SCH (17:41)
[2021-03-13 20:18] LABS: Hemoglobin A1C 7.3 % (4.0-6.0)
[2021-03-13 20:30] LABS: Glucose,Whole Blood 217 mg/dL (75-99)
[2021-03-13] MEDS: MAGNESIUM OXIDE 400 MG TAB PO SCH (20:36)
[2021-03-13] MEDS: DOXAZOSIN 1 MG TAB PO SCH (20:36)
[2021-03-14] MEDS: SODIUM CHLORIDE 0.9% 1,000 ML IV SCH (05:24)
[2021-03-14 06:15] LABS: Glucose,Whole Blood 180 mg/dL (75-99)
[2021-03-14] MEDS: INSULIN ASPART (NovoLOG) 100 UNIT/ML VIAL SQ SCH ×4 (06:17→20:47)
[2021-03-14] MEDS: PANTOPRAZOLE 40 MG TABLET PO SCH (06:17)
[2021-03-14] MEDS: metFORMIN 500 MG TAB PO SCH ×2 (06:17→17:10)
[2021-03-14 08:11] LABS: Albumin 4.1 g/dL (3.5-5.0); Calcium 9.7 mg/dL (8.4-10.2); Potassium 4.4 mmol/L (3.5-5.1); Total Bilirubin 0.7 mg/dL (0.2-1.3); Total Protein 6.7 g/dL (6.3-8.2)
[2021-03-14] MEDS: ENOXAPARIN 40 MG/0.4 ML SYRINGE SQ SCH (08:11)
[2021-03-14] MEDS: ASPIRIN 325 MG TAB PO SCH (08:11)
[2021-03-14] MEDS: METOPROLOL TARTRATE 12.5 MG TAB PO SCH (08:11)
[2021-03-14] MEDS: DOCUSATE 100 MG CAP PO SCH ×3 (08:12→23:20)
[2021-03-14] MEDS: ATORVASTATIN 40 MG TAB PO SCH (08:12)
[2021-03-14] MEDS: lisinopriL 5 MG TAB PO SCH (08:12)
[2021-03-14] MEDS: CLOPIDOGREL 75 MG TAB PO SCH (08:12)
[2021-03-14] MEDS: FAMOTIDINE 20 MG TAB PO SCH ×2 (08:12→20:52)
[2021-03-14 08:39] LABS: Anisocytosis Slight; Basophils # (A) 0.1 k/uL (0-0.2); Basophils % (A) 1 %; Eosinophils % (A) 0 %; HCT 44.4 % (39.0-53.0); HGB 14.2 gm/dL (13.0-17.5); Hypochromasia Slight; Lymphocytes # (A) 1.9 k/uL (1.0-4.8); Lymphocytes % (A) 19 %; MCH 34.3 pg (25.0-35.0); MCV 107.2 fL (80.0-100.0); Macrocytosis Marked; Mean Platelet Volume 11.3; Monocytes # (A) 0.5 k/uL (0-1.0); Monocytes % (A) 5 %; Neutrophils # (A) 7.2 k/uL (1.3-7.7); Neutrophils % (A) 71 %; Platelet Count 200 k/uL (150-450); RBC 4.14 m/uL (4.30-5.90); RDW 18.4 % (11.5-15.5); WBC 10.1 k/uL (3.8-10.6)
--- NOTE | 2021-03-14 10:18 | P.CRDCN ---
History of Present Illness History of present illness: HISTORY OF PRESENTING ILLNESS This is a pleasant 81-year-old male past medical history significant for coronary artery disease status post PCI to the mid RCA in 2019 with 60% proximal and 50% mid LAD disease, peripheral vascular disease status post left subclavian PCI, carotid artery disease bilaterally, diabetes mellitus, hypertension and dyslipidemia. He follows in the office with Dr. Moreno. We have been asked to see in consultation for SANDRA. Patient admitted to the hospital 03/13/2021 with complaints of "big headache", that started Sunday around 11am. It progressively got worse. His headache was located in frontal region. New, has never had this before. He has decreased vision in his right eye which has improved. Denies any nausea or vomiting, change in speech, denies facial droop and denies any numbness tingling or focal weakness. He denies any chest pain, palpitations, shortness of breath, symptoms of orthopnea or PND, lightheadedness, dizziness, syncope. He is a nonsmoker, denies alcohol or illicit drug use. He is very active at home. He denies history of PA, previous stroke. On admission, CT head showed subacute ischemic infarct right occipital lobe which is a change compared to the old exam. Patient was admitted in October 2020 with symptoms of blurred vision on the right side. He has been evaluated by neurology and ophthalmology and diagnosed with an acute ischemic optic neuritis. He was evaluated by vascular surgery and underwent right carotid endarterectomy. Echocardiogram 10/2020 revealed impaired LV systolic function with ejection fraction 40-45%, basal inferior, basal inferoseptal, mid inferior and mid inferoseptal LV wall motion h ypokinesia. When compared to most recent echocardiogram from May 2019 at that time had normal LV systolic function with no significant wall motion abnormalities. DIAGNOSTICS Telemetry reviewed, patient in sinus mechanism HR 60-80s, no evidence of ectopy or arrhythmia Laboratory reviewed, WBC 10.1, hemoglobin 14.2, platelets 200, sodium 139, potassium 4.4, BUN 22, serum creatinine 0.9 to Current home cardiac medications include lisinopril 5 mg daily, metoprolol tartrate 12.5 mg daily, magnesium oxide 400 mg nightly, Plavix 75 mg daily, atorvastatin 80 mg nightly, aspirin 81 mg daily REVIEW OF SYSTEMS At the time of my exam: CONSTITUTIONAL: Denies fever or chills. CARDIOVASCULAR: Denies chest pain, shortness of breath, orthopnea, PND or palpitations. RESPIRATORY: Denies cough. GASTROINTESTINAL: Denies abdominal pain, diarrhea, constipation, nausea or vomiting. MUSCULOSKELETAL: Denies myalgias. NEUROLOGIC: Headache. Denies numbness, tingling, weakness. ENDOCRINE: Denies fatigue, weight change, polydipsia or polyurina. GENITOURINARY: Denies burning, hematuria or urgency with micturation. HEMATOLOGIC: Denies history of anemia or bleeding. PHYSICAL EXAMINATION Blood pressure 165/85 heart rate 71 afebrile and maintaining oxygen saturation on room air. CONSTITUTIONAL: No apparent distress. HEENT: Head is normocephalic. Pupils are equal, round. Sclerae anicteric. Mucous membranes of the mouth are moist. No JVD. No carotid bruit. CHEST EXAMINATION: Lungs are clear to auscultation. No chest wall tenderness is noted on palpation or with deep breathing. HEART EXAMINATION: Regular rate and rhythm. S1, S2 heard. No murmurs, gallops or rub. ABDOMEN: Soft, nontender. Positive bowel sounds. EXTREMITIES: 2+ peripheral pulses, no lower extremity edema and no calf tenderness. NEUROLOGIC EXAMINATION: Patient is awake, alert and oriented x3. He has decreased vision in his right eye, which is improving. ASSESSMENT Subacute ischemic infarct right occipital lobe Carotid stenosis Coronary artery disease s\\p PCI RCA 2019 Hypertension Diabetes mellitus, type 2 Dyslipidemia Chronic systolic heart failure, clinically euvolemic Ischemic cardiomyopathy PLAN Patient is declining SANDRA and/or loop recorder at this time. I have discussed the risks and benefits for the above-mentioned procedure and for both sedation/analgesia if indicated, as they pertain to this patient. Que stions have been answered appropriately. The patient has indicated understanding and does not want to proceed with a SANDRA and loop recorder at this time. Neurology following and updated Continue home cardiac medications Patient to follow up with Dr. Moreno in the office for further management. We will sign off at this time. Please re-consult if needed. Thank you kindly for this consultation. Nurse Practitioner note has been reviewed, I agree with a documented findings and plan of care. Patient was seen and examined. 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 baird, stenting of the subclavian artery History of Any Multi-Drug Resistant Organisms: None Reported Past Surgical History: Back Surgery, Cholecystectomy, Orthopedic Surgery Additional Past Surgical History / Comment(s): nicole carpel tunnel,heel spur,basal cell removed from scalp Past Anesthesia/Blood Transfusion Reactions: No Reported Reaction Past Psychological History: Anxiety, Depression Smoking Status: Former smoker Past Alcohol Use History: None Reported Past Drug Use History: None Reported - Past Family History Father History Unknown: Yes Mother Family Medical History: Deep Vein Thrombosis (DVT) Medications and Allergies Home Medications Medication Instructions Recorded Confirmed Type Cholecalciferol [Vitamin D3 (25 100 mcg PO AC-SUPPER 05/10/16 03/13/21 History Mcg = 1000 Iu)] Doxazosin [Cardura] 1 mg PO HS 05/10/16 03/13/21 History Magnesium Oxide [Mag-Ox] 400 mg PO HS 10/31/20 03/13/21 History Metoprolol Tartrate [Lopressor] 12.5 mg PO DAILY 10/31/20 03/13/21 History metFORMIN HCL ER [Glucophage XR] 1,000 mg PO AC-BID 10/31/20 03/13/21 History Aspirin 81 mg PO DAILY chew 11/02/20 03/13/21 Rx Atorvastatin [Lipitor] 80 mg PO HS 30 Days #30 tab 11/02/20 03/13/21 Rx Clopidogrel [Plavix] 75 mg PO DAILY 30 Days #30 tab 11/02/20 03/13/21 Rx lisinopriL [Zestril] 5 mg PO DAILY tab 11/02/20 03/13/21 Rx Allergies Allergy/AdvReac Type Severity Reaction Status Date / Time tamsulosin [From Flomax] Allergy Rash/Hives Verified 03/13/21 08:50 Physical Exam Vitals: Vital Signs Temp Pulse Pulse Resp BP BP Pulse Ox 03/13/21 23:59 74 16 150/64 98 03/13/21 20:00 98 F 71 17 186/71 97 03/13/21 16:00 63 16 160/82 97 03/13/21 11:48 57 L 16 184/73 98 03/13/21 07:41 71 16 163/82 95 Intake and Output 03/13/21 03/13/21 03/14/21 14:59 22:59 06:59 Intake Total 480 350 Balance 480 350 Intake: Oral 480 350 Other: Voiding Method Toilet # Voids 1 2 Results 03/14/21 07:00 03/14/21 07:00 Cardiac Enzymes 03/13/21 Range/Units 07:42 Troponin I <0.012 (0.000-0.034) ng/mL Current Medications Generic Name Dose Route Start Last Admin Trade Name Freq PRN Reason Stop Dose Admin Aspirin 325 mg 03/14/21 09:00 Aspirin 325 Mg Tab PO DAILY [facility] Atorvastatin Calcium 40 mg 03/13/21 09:00 03/13/21 09:56 Atorvastatin 40 Mg Tab PO 40 mg DAILY MACHELLE Administration Cholecalciferol 100 mcg 03/13/21 17:30 03/13/21 17:41 Cholecalciferol 25 Mcg (1000 Iu) Tablet PO 100 mcg AC-SUPPER MACHELLE Administration Clopidogrel Bisulfate 75 mg 03/13/21 09:00 03/13/21 09:56 Clopidogrel 75 Mg Tab PO 75 mg DAILY [facility] Administration Docusate Sodium 100 mg 03/13/21 08:00 03/13/21 21:24 Docusate 100 Mg Cap PO Not Given Q8HR [facility] Doxazosin Mesylate 1 mg 03/13/21 21:00 03/13/21 20:36 Doxazosin 1 Mg Tab PO 1 mg HS MACHELLE Administration Enoxaparin Sodium 40 mg 03/14/21 09:00 Enoxaparin 40 Mg/0.4 Ml Syringe SQ DAILY [facility] Famotidine 20 mg 03/13/21 09:00 03/13/21 20:36 Famotidine 20 Mg Tab PO 20 mg BID MACHELLE Administration Sodium Chloride 1,000 mls @ 20 mls/hr 03/13/21 04:45 03/14/21 05:24 Saline 0.9% IV Not Given .Q24H [facility] Insulin Aspart 0 unit 03/13/21 12:46 03/14/21 06:17 Insulin Aspart (Novolog) 100 Unit/Ml Vial SQ 2 unit ACHS MACHELLE Administration Protocol Lisinopril 5 mg 03/13/21 09:45 03/13/21 09:56 Lisinopril 5 Mg Tab PO 5 mg DAILY [facility] Administration Magnesium Oxide 400 mg 03/13/21 21:00 03/13/21 20:36 Magnesium Oxide 400 Mg Tab PO 400 mg HS MACHELLE Administration Metformin HCl 1,000 mg 03/13/21 17:30 03/14/21 06:17 Metformin 500 Mg Tab PO 1,000 mg AC-BID MACHELLE Administration Metoprolol Tartrate 12.5 mg 03/13/21 09:45 03/13/21 09:58 Metoprolol Tartrate 12.5 Mg Tab PO 12.5 mg DAILY [facility]HEL[facility] Administration Pantoprazole Sodium 40 mg 03/14/21 07:30 03/14/21 06:17 Pantoprazole 40 Mg Tablet PO 40 mg AC-BRKFST MACHELLE Administration Intake and Output 03/13/21 03/13/21 03/14/21 14:59 22:59 06:59 Intake Total 480 350 Balance 480 350 Intake: Oral 480 350 Other: Voiding Method Toilet # Voids 1 2 03/13/21 05:00 03/13/21 05:00
[2021-03-14 11:47] LABS: Glucose,Whole Blood 192 mg/dL (75-99)
--- NOTE | 2021-03-14 16:15 | MR ---
EXAMINATION TYPE: MR angio head wo con DATE OF EXAM: 03/14/2021 COMPARISON: CTA head October 31, 2020 HISTORY: no prior frontal headache TECHNIQUE: Time of flight images focusing on the [place] were performed without contrast.. 2-D and 3-D postprocessing imaging is performed on independent workstation and reviewed. FINDINGS: Codominant vertebrobasilar system patent to basilar junction. Hypoplastic bilateral posteri or communicating arteries redemonstrated. No significant focal stenosis or aneurysmal change in the p osterior circulation. Anterior circulation shows tortuous left anterior cerebral artery. Suspect hypoplastic anterior commu nicating artery. Small caliber right A1 segment redemonstrated. No new significant focal stenosis or aneurysm in the anterior circulation. IMPRESSION: No suspicious focal aneurysm at the level of the [place].
--- NOTE | 2021-03-14 16:20 | MR ---
EXAMINATION TYPE: MR brain wo con DATE OF EXAM: 03/14/2021 COMPARISON: MRI brain November 01, 2020. CT brain March 13, 2021 HISTORY: Prior on synapse, frontal headache TECHNIQUE: Multiplanar, multisequence imaging of the brain and brainstem is performed without IV cont rast. FINDINGS: Diffusion weighted images confirm area of increased signal on diffusion weighted images with diminish ed signal ADC mapping that shows T1 hypointensity and T2 hyperintensity measuring approximately 3.3 x 2.8 cm series 305 image 1 28 x 3.4 cm craniocaudal dimension T2 coronal image 26 consistent with noah lving acute/subacute right parietal occipital infarct corresponding to area of concern on CT. Sulcal effacement is present. There is background mild to moderate diffuse ventricular and sulcal prominence redemonstrated. Backgr ound mild to moderate scattered foci of T2 hyperintensity throughout the white matter are redemonstra carolyn. Midline structures demonstrate normal morphology. The craniocervical junction appears within normal limits. Normal vascular flow voids are present. The visualized sinuses are clear and the globes are i ntact. Nasal septum is redemonstrated deviated to left of midline. IMPRESSION: Confirmation with evolving acute/subacute infarct right parietal occipital lobe as suspec carolyn on recent CT. Background mild to moderate diffuse cerebral atrophy and chronic small vessel ische kemar change redemonstrated.
[2021-03-14 16:32] LABS: Glucose,Whole Blood 175 mg/dL (75-99)
[2021-03-14 16:38] LABS: Chol/HDL Ratio 2.39
[2021-03-14] MEDS: CHOLECALCIFEROL 25 MCG (1000 IU) TABLET PO SCH (17:10)
--- NOTE | 2021-03-14 19:29 | P.PN ---
Subjective Progress Note Date: 03/14/21 This is a 81-year-old male patient of Dr. Holguin. Patient presented to the ER with complaints of ongoing severe headache that started around 11 AM yesterday morning. Patient reports that he had been working out in the blood when he started to experience headache that progressively increased throughout the day. Patient describes headache as frontal headache across the forehead. Patient denies any other neurological symptoms. Patient denies loss of vision confusion or confusion. Patient does have a past medical history of CVA in October in which she has vision loss right eye followed by a carotid endarterectomy with Dr. Curran in October of this year. Additional medical history includes diabetes m ellitus, hyperlipidemia, hypertension, prostate disorder and cholecystectomy. Head CT was performed in ER showing a subacute ischemic infarct right occipital lobe which is change compared to old exam cerebral atrophy. Troponins negative. Patient denies any recent illness. At this time headache has resolved. Patient denies chest pain or shortness of breath. Patient denies nausea vomiting or diarrhea. Patient denies any urinary burning or frequency. On 03/14/2021 Patient was seen and examined on the medical floor, he is alert and oriented x 3 in no distress, he denies any complaints there is no fever or chills no headache or dizziness no chest pain no shortness of breath no palpitation no cough no nausea or vomiting no abdominal pain no diarrhea no blood in the stools no burning with urination no frequency or urgency and no hematuria, there is no weakness or numbness in any of the extremities no change in vision speech or gait. Patient was evaluated by neurology cardiology cons ultation SANDRA and loop recorder where adviced, initially patient declined however at this time he is agreeable to having testing done. He will be kept nothing by mouth after midnight or possible SANDRA tomorrow morning Objective - Vital Signs Vital signs: Vital Signs Temp 97.6 F 03/14/21 15:45 Pulse 60 03/14/21 15:45 Resp 18 03/14/21 15:45 BP 177/57 03/14/21 15:45 Pulse Ox 97 03/14/21 15:45 Intake & Output 03/14/21 03/14/21 03/15/21 06:59 18:59 06:59 Intake Total 420 Balance 420 Weight 89 kg Intake: Oral 420 Other: Voiding Method Toilet Toilet # Voids 2 2 - Exam Head normocephalic Neck supple Lungs clear to auscultation bilaterally no wheezing or crackles Heart regular rate and rhythm S1-S2, no rub or gallop Abdomen is soft nontender nondistended positive bowel sounds no hepatosplenomegaly Extremities no edema Neuro alert and orientated to 3. Equal strength throughout all extremities. No signs of facial droop. Memory intact. 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 - Labs CBC & Chem 7: 03/14/21 07:00 03/14/21 07:00 Labs: Abnormal Lab Results - Last 24 Hours (Table) 03/13/21 03/13/21 03/14/21 Range/Units 05:00 20:29 06:14 RBC (4.30-5.90) m/uL MCV (80.0-100.0) fL RDW (11.5-15.5) % Macrocytosis BUN (9-20) mg/dL Glucose (74-99) mg/dL POC Glucose (mg/dL) 217 H 180 H (75-99) mg/dL Hemoglobin A1c 7.3 H (4.0-6.0) % HDL Cholesterol (40.0-60.0) mg/dL 03/14/21 03/14/21 03/14/21 Range/Units 07:00 07:00 11:45 RBC 4.14 L (4.30-5.90) m/uL MCV 107.2 H (80.0-100.0) fL RDW 18.4 H (11.5-15.5) % Macrocytosis Marked A BUN 22 H (9-20) mg/dL Glucose 183 H (74-99) mg/dL POC Glucose (mg/dL) 192 H (75-99) mg/dL Hemoglobin A1c (4.0-6.0) % HDL Cholesterol 38.0 L (40.0-60.0) mg/dL 03/14/21 Range/Units 16:31 RBC (4.30-5.90) m/uL MCV (80.0-100.0) fL RDW (11.5-15.5) % Macrocytosis BUN (9-20) mg/dL Glucose (74-99) mg/dL POC Glucose (mg/dL) 175 H (75-99) mg/dL Hemoglobin A1c (4.0-6.0) % HDL Cholesterol (40.0-60.0) mg/dL Assessment and Plan Assessment: 1. Severe headache possible secondary to subacute ischemic stroke. Neurology services have been consulted 2. History of CVA in October of this year with right vision loss 3. Status post endarterectomy for severe bilateral carotid artery stenosis in October with Dr. Curran 4. History of coronary artery disease with stent placement in 2018 5. History of essential hypertension 6. History of hyperlipidemia 7. History of diabetes mellitus type 2
[2021-03-14] MEDS ORDERED: TICAGRELOR 90 MG TAB PO STA (20:13)
--- NOTE | 2021-03-14 20:19 | P.PN ---
Subjective Progress Note Date: 03/14/21 I'm seeing the patient for the first time. Please refer Dr. Ramirez's note for further neurological details. He stated that he still has visual disturbance over the right eye but said that there is some improvement but not back to baseline. Patient denies of any focal weakness, numbness, any headaches, any difficulty getting his words out. I spoke with the patient's and she said his grand-daughter had a talk with him and she convinced him to proceed with SANDRA. Objective - Vital Signs Vital signs: Vital Signs Temp 97.6 F 03/14/21 15:45 Pulse 60 03/14/21 15:45 Resp 18 03/14/21 15:45 BP 177/57 03/14/21 15:45 Pulse Ox 97 03/14/21 15:45 Intake & Output 03/14/21 03/14/21 03/15/21 06:59 18:59 06:59 Intake Total 420 Balance 420 Weight 89 kg Intake: Oral 420 Other: Voiding Method Toilet Toilet # Voids 2 2 - Exam Patient is alert awake oriented to self, place and time. Speech and language functions are normal. No neglect. On cranial examination: His pupils are round and equal size. The right pupil is less reactive as compared to the left. I had a hard time assessing the right visual scott while the left is full to confrontation. EOM intact and no nystagmus. Facial sensation is normal to touch throughout. Face is symmetric, tongue protrudes to the midline. Palatal elevation and sensation normal, hearing is moderately decreased and shoulder shrug normal. Shoulder shrug normal. On muscle strength testing, there is no pronator drift and the strength is normal in arms and legs distally and proximally. Tone and bulk of muscles normal. Sensory to touch is equal with no neglect. Cerebellar function showed no ataxia for [id number] testing. No dysdiadochokinesia. Deep tendon reflexes are 1 in the upper limbs, 2 at the knees, 1 ankles. Plantar is downgoing bilaterally. WORK-UP: MRI Brain is reporte ad confirmation with evolving acute/subacute infarct over the right parietal occipital lobe as suspected on recent CT. Background mild to moderate diffuse cerebral atrophy and chronic small vessel ischemic redonstrated. MRA of the head is reported as no suspicious focal aneurysm at the level of [place]. Carotid duplex is reported as excessive bilateral plaques with findings suggestive of 50-69% bilateral stenosis. Lipid panel is a triglyceride of 60, cholesterol of 91, LDL 41, HDL of 38. - Labs CBC & Chem 7: 03/14/21 07:00 03/14/21 07:00 Labs: Abnormal Lab Results - Last 24 Hours (Table) 03/13/21 03/13/21 03/14/21 Range/Units 05:00 20:29 06:14 RBC (4.30-5.90) m/uL MCV (80.0-100.0) fL RDW (11.5-15.5) % Macrocytosis BUN (9-20) mg/dL Glucose (74-99) mg/dL POC Glucose (mg/dL) 217 H 180 H (75-99) mg/dL Hemoglobin A1c 7.3 H (4.0-6.0) % HDL Cholesterol (40.0-60.0) mg/dL 03/14/21 03/14/21 03/14/21 Range/Units 07:00 07:00 11:45 RBC 4.14 L (4.30-5.90) m/uL MCV 107.2 H (80.0-100.0) fL RDW 18.4 H (11.5-15.5) % Macrocytosis Marked A BUN 22 H (9-20) mg/dL Glucose 183 H (74-99) mg/dL POC Glucose (mg/dL) 192 H (75-99) mg/dL Hemoglobin A1c (4.0-6.0) % HDL Cholesterol 38.0 L (40.0-60.0) mg/dL 03/14/21 Range/Units 16:31 RBC (4.30-5.90) m/uL MCV (80.0-100.0) fL RDW (11.5-15.5) % Macrocytosis BUN (9-20) mg/dL Glucose (74-99) mg/dL POC Glucose (mg/dL) 175 H (75-99) mg/dL Hemoglobin A1c (4.0-6.0) % HDL Cholesterol (40.0-60.0) mg/dL Assessment and Plan Assessment: * Acute ischemic stroke right occipital lobe, exact cause is uncertain. Seems embolic (not sure if artery to artery or cardioembolic). * Transient cephalgia, likely due to above. Now gone. * Excessive bilateral plaques with findings suggestive of 50-69% bilateral stenosis per carotid duplex. 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 * Status post right CEA October 2020 * Hypertension * Diabetes * X tobacco use Plan: * On dual antiplatelet medications (ASA 325mg daily and Plavix 75mg daily). I stopped Plavix since he was on it at home and failed medication (he was on ASA and Plavix) and started him on Brilinta 90mg 1 tab and loaded him Brilinta 180mg. Continue Lipitor 40 mg for secondary stroke prophylaxis. * I ordered CTA neck and consulted vascular surgery team. * Recommend cardiology consultation for SANDRA to evaluate for embolic stroke. He refused SANDRA to cardiology but upon seeing him he said he wants to pursue with it. * Placed on Q4 hours neuro-checks and continous cardiac monitoring. * Continue telemetry monitoring to rule out paroxysmal atrial fibrillation. He refused loop recorder but instead can be on event monitor. * PT, OT and COLLISION MECHANIC are consulted. * Upon discharge, the patient needs to follow-up with a neurologist within 1-2 weeks as outpatient. If he does not go for SANDRA tomorrow then will start him on subq heparin for DVT prophylaxis. Otherwise to be on SCD (that is already ordered). The plan is discussed with the patient, his and his nurse and the primary team. Christopher Singer MD Neuro-Hospitalist Time with Patient: Greater than 30
[2021-03-14 20:34] LABS: Glucose,Whole Blood 86 mg/dL (75-99)
[2021-03-14] MEDS: DOXAZOSIN 1 MG TAB PO SCH (20:52)
[2021-03-14] MEDS: MAGNESIUM OXIDE 400 MG TAB PO SCH (20:52)
--- NOTE | 2021-03-14 23:54 | CT ---
EXAMINATION TYPE: CT angio neck DATE OF EXAM: 03/14/2021 COMPARISON: 10/31/2020 HISTORY: Stroke, carotid stenosis CT DLP: 500.1 mGycm Automated exposure control for dose reduction was used. CONTRAST: Performed with IV Contrast, patient injected with 65 mL of Isovue 370. Images obtained from the aortic arch to the skull base with IV contrast. There are 3-D post processed images. There is normal branching pattern of the great vessels on the aortic arch. There is evidence for vasc ular calcification at the great vessels. There is arterial flow in both subclavian arteries. There is moderate calcification in the common carotid arteries. There is arterial flow in both common carotid arteries. There is plaque formation and approximate 40% luminal narrowing of the proximal right inte rnal carotid artery. There is extensive plaque and calcification at the left carotid artery bifurcati on. There is approximate 75% stenosis at the origin of the left internal artery. There is arterial flow in both vertebral arteries. There is arterial flow in the vertebrobasilar ismael ry system. There is no evidence of carotid or vertebral artery aneurysm or dissection. IMPRESSION: Extensive atherosclerotic vascular calcification. There is approximate 40% stenosis proximal right in ternal carotid artery and 75% stenosis proximal left internal carotid artery. There appears to be surgery on the right side with decrease in the carotid calcification at the carot id artery bifurcation compared to old exam and improvement in the stenosis. Extensive plaque and sten osis on the left side not significantly different.
[2021-03-15 06:06] LABS: Glucose,Whole Blood 150 mg/dL (75-99)
[2021-03-15] MEDS: SODIUM CHLORIDE 0.9% 1,000 ML IV SCH (06:09)
[2021-03-15] MEDS: metFORMIN 500 MG TAB PO SCH (06:10)
[2021-03-15] MEDS: INSULIN ASPART (NovoLOG) 100 UNIT/ML VIAL SQ SCH ×2 (06:44→12:18)
[2021-03-15] MEDS: PANTOPRAZOLE 40 MG TABLET PO SCH (06:44)
--- NOTE | 2021-03-15 07:48 | P.PN ---
Progress Note - Text This is a pleasant 81-year-old male past medical history significant for coronary artery disease status post PCI to the mid RCA in 2019 with 60% proximal and 50% mid LAD disease, peripheral vascular disease status post left subclavian PCI, carotid artery disease bilaterally, diabetes mellitus, hypertension and dyslipidemia. He follows in the office with Dr. Moreno. Also has been seen by Dr. Dixon. We have been asked to see in consultation for SANDRA. Patient refused SANDRA procedure and loop recorder yesterday 03/14/2021. Patient was later yesterday evening agreeable to procedure. Spoke to patient this morning, he is again declining to get the SANDRA done. We have discussed the risks and benefits for the above-mentioned procedure and for both sedation/analgesia if indicated. Questions have been answered appropriately. The patient has indicated understanding and again does not want to proceed with a SANDRA.
[2021-03-15] MEDS ORDERED: lisinopriL 10 MG TAB PO SCH (09:00)
[2021-03-15] MEDS ORDERED: TICAGRELOR 90 MG TAB PO SCH (09:00)
[2021-03-15] MEDS: ASPIRIN 325 MG TAB PO SCH (09:15)
[2021-03-15] MEDS: METOPROLOL TARTRATE 12.5 MG TAB PO SCH (09:15)
[2021-03-15] MEDS: FAMOTIDINE 20 MG TAB PO SCH (09:15)
[2021-03-15] MEDS: ENOXAPARIN 40 MG/0.4 ML SYRINGE SQ SCH (09:15)
[2021-03-15] MEDS: ATORVASTATIN 40 MG TAB PO SCH (09:15)
[2021-03-15] MEDS: DOCUSATE 100 MG CAP PO SCH ×2 (09:27→17:15)
[2021-03-15 09:28] VITALS: RESP 18
--- NOTE | 2021-03-15 10:09 | P.GSCN ---
History of Present Illness Consult date: 03/15/21 History of present illness: Rah is an 81-year-old male with a past medical history including recent symptomatic right internal carotid artery with a carotid endarterectomy back in October 2020 at that time, he had visual disturbances which never fully return to their normal. He presented recently with headaches that have improved. He also continues with hypertension, diabetes and history of tobacco use. He is not sure when he followed up with Dr. Watts in the office. He was recommended undergo SANDRA but has twice refused Review of Systems 14 point review of systems performed. Pertinent positives and negatives per the HPI Past Medical History Past Medical History: Cancer, CVA/TIA, Diabetes Mellitus, Hyperlipidemia, Hypertension, Osteoarthritis (OA), Prostate Disorder Additional Past Medical History / Comment(s): Amaurosis fugax on the right, basal cell carcinoma of the skin, kidney stones, hypertension, hyperlipidemia, diabetes mellitus, currently Dr. baird, stenting of the subclavian artery History of Any Multi-Drug Resistant Organisms: None Reported Past Surgical History: Back Surgery, Cholecystectomy, Orthopedic Surgery Additional Past Surgical History / Comment(s): nicole carpel tunnel,heel spur,basal cell removed from scalp Past Anesthesia/Blood Transfusion Reactions: No Reported Reaction Past Psychological History: Anxiety, Depression Smoking Status: Former smoker Past Alcohol Use History: None Reported Past Drug Use History: None Reported - Past Family History Father History Unknown: Yes Mother Family Medical History: Deep Vein Thrombosis (DVT) Medications and Allergies Home Medications Medication Instructions Recorded Confirmed Type Cholecalciferol [Vitamin D3 (25 100 mcg PO AC-SUPPER 05/10/16 03/13/21 History Mcg = 1000 Iu)] Doxazosin [Cardura] 1 mg PO HS 05/10/16 03/13/21 History Magnesium Oxide [Mag-Ox] 400 mg PO HS 10/31/20 03/13/21 History Metoprolol Tartrate [Lopressor] 12.5 mg PO DAILY 10/31/20 03/13/21 History metFORMIN HCL ER [Glucophage XR] 1,000 mg PO AC-BID 10/31/20 03/13/21 History Aspirin 81 mg PO DAILY chew 11/02/20 03/13/21 Rx Atorvastatin [Lipitor] 80 mg PO HS 30 Days #30 tab 11/02/20 03/13/21 Rx Clopidogrel [Plavix] 75 mg PO DAILY 30 Days #30 tab 11/02/20 03/13/21 Rx lisinopriL [Zestril] 5 mg PO DAILY tab 11/02/20 03/13/21 Rx Allergies Allergy/AdvReac Type Severity Reaction Status Date / Time tamsulosin [From Flomax] Allergy Rash/Hives Verified 03/13/21 08:50 Surgical - Exam Vital Signs Temp Pulse Resp BP Pulse Ox 98.2 F 66 18 180/77 96 03/13/21 01:43 03/13/21 01:43 03/13/21 01:43 03/13/21 01:43 03/13/21 01:43 Gen. is a pleasant and cooperative elderly male in no acute distress. HEENT is normocephalic, atraumatic, extraocular motion intact. Heart appears regular at this time. Lungs are clear but diminished bilaterally. Abdomen soft, nontender nondistended. Extremity show no clubbing, cyanosis or edema. Normal mood and affect. Cranial nerves II through XII grossly intact Results Imaging is reviewed. 50-69% stenosis bilaterally - Labs 03/14/21 07:00 03/14/21 07:00 Abnormal Lab Results - Last 24 Hours (Table) 03/14/21 03/14/21 03/14/21 Range/Units 07:00 11:45 16:31 POC Glucose (mg/dL) 192 H 175 H (75-99) mg/dL HDL Cholesterol 38.0 L (40.0-60.0) mg/dL 03/15/21 Range/Units 06:05 POC Glucose (mg/dL) 150 H (75-99) mg/dL HDL Cholesterol (40.0-60.0) mg/dL Diabetes panel 03/14/21 Range/Units 07:00 Triglycerides 60.0 (0.0-149.0) mg/dL HDL Cholesterol 38.0 L (40.0-60.0) mg/dL Assessment and Plan Assessment: Carotid artery stenosis Status post carotid endarterectomy 10/2020 Visual changes Plan: At this time uncertain of the etiology of his symptomatology. There does appear to be some degree of carotid stenosis after the endarterectomy, but no significant plaquing noted. Carotid endarterectomy site appears patent. Continue medical therapy is. No emergent indications for intervention. Plan outpatient follow-up with Dr. Cuppari. We will try to review results from the office from recent ultrasound
[2021-03-15 12:00] LABS: Glucose,Whole Blood 187 mg/dL (75-99)
[2021-03-15 12:38] VITALS: BP 151/71; PULSE 74; TEMP 97.7
--- NOTE | 2021-03-15 16:04 | P.PN ---
Subjective Progress Note Date: 03/15/21 The patient is seen at bedside and he feels right visual disturbances over the right eye is somewhat better. He denies of any new neurological problems. He refused again SANDRA in the AM. Objective - Vital Signs Vital signs: Vital Signs Temp 97.7 F 03/15/21 12:20 Pulse 74 03/15/21 12:20 Resp 18 03/15/21 12:20 BP 151/71 03/15/21 12:20 Pulse Ox 96 03/15/21 12:20 Intake & Output 03/14/21 03/15/21 03/15/21 18:59 06:59 18:59 Intake Total 420 0 Balance 420 0 Weight 85.4 kg Intake: Oral 420 0 Other: Voiding Method Toilet Toilet Toilet # Voids 2 1 2 - Exam Patient is alert awake oriented to self, place and time. Speech and language functions are normal. No neglect. On cranial examination: His pupils are round and equal size. The right pupil is less reactive as compared to the left. I had a hard time assessing the right visual scott while the left is full to confrontation. EOM intact and no nystagmus. Facial sensation is normal to touch throughout. Face is symmetric, tongue protrudes to the midline. Palatal elevation and sensation normal, hearing is moderately decreased and shoulder shrug normal. Shoulder shrug normal. On muscle strength testing, there is no pronator drift and the strength is normal in arms and legs distally and proximally. Tone and bulk of muscles normal. Sensory to touch is equal with no neglect. Cerebellar function showed no ataxia for [id number] testing. No dysdiadochokinesia. Deep tendon reflexes are 1 in the upper limbs, 2 at the knees, 1 ankles. Plantar is downgoing bilaterally. WORK-UP: MRI Brain is reporte ad confirmation with evolving acute/subacute infarct over the right parietal occipital lobe as suspected on recent CT. Background mild to moderate diffuse cerebral atrophy and chronic small vessel ischemic redonstrated. MRA of the head is reported as no suspicious focal aneurysm at the level of [place]. Carotid duplex is reported as excessive bilateral plaques with findings suggestive of 50-69% bilateral stenosis. CT angiography of the neck was reported as extensive atherosclerotic vascular calcification. There is approximately 4% stenosis proximal right internal carotid artery and 75% stenosis proximal left internal carotid artery. This appears to be surgery on the right side with decrease in the the carotid calcification at the carotid artery bifurcation compared to old exam improved in the stenosis. Extensive plaque and stenosis on the left side not significant any different. Lipid panel is a triglyceride of 60, cholesterol of 91, LDL 41, HDL of 38. - Labs CBC & Chem 7: 03/14/21 07:00 03/14/21 07:00 Labs: Abnormal Lab Results - Last 24 Hours (Table) 03/14/21 03/14/21 03/15/21 Range/Units 07:00 16:31 06:05 POC Glucose (mg/dL) 175 H 150 H (75-99) mg/dL HDL Cholesterol 38.0 L (40.0-60.0) mg/dL 03/15/21 Range/Units 11:58 POC Glucose (mg/dL) 187 H (75-99) mg/dL HDL Cholesterol (40.0-60.0) mg/dL Assessment and Plan Assessment: * Acute ischemic stroke right occipital lobe, exact cause is uncertain. Seems embolic (not sure if artery to artery or cardioembolic). * Transient cephalgia, likely due to above. Now gone. 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 * Status post right CEA October 2020 * Hypertension * Diabetes * X tobacco use Plan: * On dual antiplatelet medications (ASA 325mg daily and Brilinta 90 bid. I stopped his Plavix since he failed it). I Continue Lipitor 40 mg for secondary stroke prophylaxis. * He refused SANDRA twice (yesterday and today). * Vascular surgery team is on board and no surgical intervention. They stated the patient to follow-up with Dr. Watts as outpatient. * On Q4 hours neuro-checks and continous cardiac monitoring. * Continue telemetry monitoring to rule out paroxysmal atrial fibrillation. He refused loop recorder but instead can be on event monitor. * PT, OT and DOCUMENT PROCESSOR are consulted. * Upon discharge, the patient needs to follow-up with a neurologist within 1-2 weeks as outpatient. DVT prophylaxis: On enoxaparin. The patient is neurologically clear from neurological stand point. Christopher Singer MD Neuro-Hospitalist Time with Patient: Less than 30
[2021-03-15 16:38] LABS: Glucose,Whole Blood 256 mg/dL (75-99)
--- NOTE | 2021-03-15 17:07 | P.DS ---
Providers Date of admission: 03/13/21 04:40 Expected date of discharge: 03/15/21 Attending physician: Nithin Gifford Consults: 03/13/21 04:40 Consult Physician Routine Consulting Provider: Jeremy Ramirez Consult Reason/Comments: Subacute ischemic stroke. Do you want consulting provider notified?: Yes 03/13/21 15:29 Consult Physician Routine Consulting Provider: Andrew Estes Consult Reason/Comments: neuro requesting SANDRA for stroke Do you want consulting provider notified?: Yes 03/14/21 20:16 Consult Physician Routine Consulting Provider: Brady Watts Consult Reason/Comments: carotid stenosis. He is known to you. Do you want consulting provider notified?: Yes 03/15/21 07:26 Consult Physician Urgent Consulting Provider: Alexis Sherman Consult Reason/Comments: SANDRA Do you want consulting provider notified?: Already Contacted Primary care physician: Dayana Holguin Hospital Course: Diagnosis on discharge: 1. Severe headache possible secondary to subacute ischemic stroke. Neurology services have been consulted 2. History of CVA in October of this year with right vision loss 3. Status post endarterectomy for severe bilateral carotid artery stenosis in October with Dr. Curran 4. History of coronary artery disease with stent placement in 2019 5. History of essential hypertension 6. History of hyperlipidemia 7. History of diabetes mellitus type 2 Hospital course: This is a 81-year-old male patient of Dr. Holguin. Patient presented to the ER with complaints of ongoing severe headache that started around 11 AM yesterday morning. Patient reports that he had been working out in the blood when he started to experience headache that progressively increased throughout the day. Patient describes headache as frontal headache across the forehead. Patient denies any other neurological symptoms. Patient denies loss of vision confusion or confusion. Patient does have a past medical history of CVA in October in which she has vision loss right eye followed by a carotid endarterectomy with Dr. Curran in October of this year. Additional medical history includes diabetes mellitus, hyperlipidemia, hypertension, prostate disorder and cholecystectomy. Head CT was performed in ER showing a subacute ischemic infarct right occipital lobe which is change compared to old exam cerebral atrophy. Troponins negative. Patient denies any recent illness. At this time headache has resolved. Patient denies chest pain or shortness of breath. Patient denies nausea vomiting or diarrhea. Patient denies any urinary burning or frequency. On 03/14/2021 Patient was seen and examined on the medical floor, he is alert and oriented x 3 in no distress, he denies any complaints there is no fever or chills no headache or dizziness no chest pain no shortness of breath no palpitation no cough no nausea or vomiting no abdominal pain no diarrhea no blood in the stools no burning with urination no frequency or urgency and no hematuria, there is no weakness or numbness in any of the extremities no change in vision speech or gait. Patient was evaluated by neurology cardiology consultation SANDRA and loop recorder where adviced, initially patient declined however at this time he is agreeable to having testing done. He will be kept nothing by mouth after midnight or possible SANDRA tomorrow morning On 03/15/2021 Patient was seen and examined on the medical floor, he is alert and oriented x 3 in no distress, he denies any complaints there is no fever or chills no headache or dizziness no chest pain no shortness of breath no palpitation no cough no nausea or vomiting no abdominal pain no diarrhea no blood in the stools no burning with urination no frequency or urgency and no hematuria, there is no weakness or numbness in any of the extremities no change in vision speech or gait.. Patient refused again today to have SANDRA or loop recorder placement. At this time he will be discharged home recommendation by neurology is to replace Plavix by Brilinta, patient should follow up with his primary care physician within one week also follow up by urology and neurology as outpatient. Patient Condition at Discharge: Fair Plan - Discharge Summary Discharge Rx Participant: Yes New Discharge Prescriptions: New Aspirin 325 mg PO DAILY tab Ticagrelor [Brilinta] 90 mg PO BID tab Atorvastatin [Lipitor] 40 mg PO DAILY tab Continue Doxazosin [Cardura] 1 mg PO HS Cholecalciferol [Vitamin D3 (25 Mcg = 1000 Iu)] 100 mcg PO AC-SUPPER lisinopriL [Zestril] 5 mg PO DAILY tab Magnesium Oxide [Mag-Ox] 400 mg PO HS metFORMIN HCL ER [Glucophage XR] 1,000 mg PO AC-BID Metoprolol Tartrate [Lopressor] 12.5 mg PO DAILY Aspirin 81 mg PO DAILY chew Atorvastatin [Lipitor] 80 mg PO HS 30 Days #30 tab Discontinued Clopidogrel [Plavix] 75 mg PO DAILY 30 Days #30 tab Discharge Medication List Cholecalciferol [Vitamin D3 (25 Mcg = 1000 Iu)] 100 mcg PO AC-SUPPER 05/10/16 [History] Doxazosin [Cardura] 1 mg PO HS 05/10/16 [History] Magnesium Oxide [Mag-Ox] 400 mg PO HS 10/31/20 [History] Metoprolol Tartrate [Lopressor] 12.5 mg PO DAILY 10/31/20 [History] metFORMIN HCL ER [Glucophage XR] 1,000 mg PO AC-BID 10/31/20 [History] Aspirin 81 mg PO DAILY chew 11/02/20 [Rx] Atorvastatin [Lipitor] 80 mg PO HS 30 Days #30 tab 11/02/20 [Rx] lisinopriL [Zestril] 5 mg PO DAILY tab 11/02/20 [Rx] Aspirin 325 mg PO DAILY tab 03/15/21 [Rx] Atorvastatin [Lipitor] 40 mg PO DAILY tab 03/15/21 [Rx] Ticagrelor [Brilinta] 90 mg PO BID tab 03/15/21 [Rx] Follow up Appointment(s)/Referral(s): Mike Moreno MD [STAFF PHYSICIAN] - 2 Weeks (Office to call with an appointment date and time.) Dayana Holguin MD [Primary Care Provider] - 03/17/21 2:00 pm Patient Instructions/Handouts: Ischemic Stroke (DC)
== END 2021-03-15 17:14 | disposition home or self-care (01) | DRG 65 ==
LOC: EC 01:29 → 3SCARD 04:40
PROVIDERS: ADMIT Internal Medicine; ATTEND Internal Medicine
DX: I63.49 Cerebral infarction due to embolism of other cerebral artery (principal); I50.22 Chronic systolic (congestive) heart failure; I11.0 Hypertensive heart disease with heart failure; E11.51 Type 2 diabetes mellitus with diabetic peripheral angiopathy without gangrene; H47.019 Ischemic optic neuropathy, unspecified eye; I25.10 Atherosclerotic heart disease of native coronary artery without angina pectoris; E78.5 Hyperlipidemia, unspecified; I25.5 Ischemic cardiomyopathy; I69.398 Other sequelae of cerebral infarction; H54.61 Unqualified visual loss, right eye, normal vision left eye; M19.90 Unspecified osteoarthritis, unspecified site; N42.9 Disorder of prostate, unspecified; Z53.20 Procedure and treatment not carried out because of patient's decision for unspecified reasons; Z79.82 Long term (current) use of aspirin; Z79.02 Long term (current) use of antithrombotics/antiplatelets; Z79.84 Long term (current) use of oral hypoglycemic drugs; Z79.899 Other long term (current) drug therapy; Z87.891 Personal history of nicotine dependence; Z90.49 Acquired absence of other specified parts of digestive tract; Z87.19 Personal history of other diseases of the digestive system; Z87.39 Personal history of other diseases of the musculoskeletal system and connective tissue; Z85.828 Personal history of other malignant neoplasm of skin; Z86.59 Personal history of other mental and behavioral disorders; Z95.5 Presence of coronary angioplasty implant and graft; Z87.442 Personal history of urinary calculi; Z98.890 Other specified postprocedural states; Z88.8 Allergy status to other drugs, medicaments and biological substances; Z83.2 Family history of diseases of the blood and blood-forming organs and certain disorders involving the immune mechanism
CPT/HCPCS: 70450; 70498; 70544; 70551; 80048; 80053; 80061; 83036; 84484; 85025; 93880; 99285

== ENCOUNTER 2024-01-03 09:10 | Emergency (ER) | payer MEDICARE ==
[2024-01-03] MEDS: SODIUM CHLORIDE 0.9% 500 ML 500 ML IV STA (10:23)
[2024-01-03 10:36] LABS: Anisocytosis Slight; Basophils # (A) 0.1 k/uL (0-0.2); Basophils % (A) 1 %; Eosinophils # (A) 0.1 k/uL (0-0.7); Eosinophils % (A) 1 %; HGB 12.1 gm/dL (13.0-17.5); Hypochromasia Slight; Lymphocytes # (A) 1.3 k/uL (1.0-4.8); Lymphocytes % (A) 17 %; MCH 33.7 pg (25.0-35.0); MCHC 30.9 g/dL (31.0-37.0); Macrocytosis Marked; Monocytes # (A) 0.5 k/uL (0-1.0); Monocytes % (A) 6 %; Neutrophils # (A) 5.8 k/uL (1.3-7.7); Neutrophils % (A) 73 %; Platelet Count 172 k/uL (150-450); RBC 3.58 m/uL (4.30-5.90); RDW 18.4 % (11.5-15.5); WBC 7.9 k/uL (3.8-10.6)
--- NOTE | 2024-01-03 10:41 | XR ---
EXAMINATION TYPE: XR chest 2V DATE OF EXAM: 01/03/2024 10:38 AM CLINICAL INDICATION:Male, 83 years old with history of Weakness; COMPARISON: Chest radiographs from 06/05/2019. TECHNIQUE: XR chest 2V Frontal and lateral views of the chest. FINDINGS: Lungs/Pleura: There is no evidence of pleural effusion, focal consolidation, or pneumothorax. Pulmonary vascularity: Unremarkable. Heart/mediastinum: Cardiomediastinal silhouette is unremarkable. Musculoskeletal: No acute osseous pathology. Other findings: None IMPRESSION: No acute cardiopulmonary disease/process.
[2024-01-03 10:50] LABS: ALT 28 U/L (4-49); AST 31 U/L (17-59); African American GFR (CKD) 53 (>60 ml/min/1.73 sqM); Albumin 3.5 g/dL (3.5-5.0); Alkaline Phosphatase 46 U/L (38-126); Anion Gap 10 mmol/L; Blood Urea Nitrogen 29 mg/dL (9-20); Calcium 8.9 mg/dL (8.4-10.2); Carbon Dioxide 19 mmol/L (22-30); Chloride 110 mmol/L (98-107); Glucose 144 mg/dL (74-99); Non-African American GFR(CKD) 46 (>60 ml/min/1.73 sqM); Potassium 4.6 mmol/L (3.5-5.1); Sodium 139 mmol/L (137-145); Total Bilirubin 0.7 mg/dL (0.2-1.3)
[2024-01-03 10:53] LABS: Partial Thromboplastin Time 23.2 sec (22.0-30.0); Prothrombin Time 10.7 sec (10.0-12.5)
[2024-01-03 11:12] VITALS: RESP 18; TEMP 97.6
[2024-01-03] MEDS: SODIUM CHLORIDE 0.9% 500 ML 500 ML IV ONE (12:03)
[2024-01-03 12:08] LABS: Appearance,Urine Clear (Clear); Bilirubin,Urine Negative (Negative); Blood,Urine Negative (Negative); Color,Urine Light Yellow; Glucose,Urine (UA) Negative (Negative); Ketones,Urine Negative (Negative); Leukocyte Esterase,Urine Negative (Negative); Nitrite,Urine Negative (Negative); Protein,Urine Trace (Negative); Specific Gravity,Urine 1.016 (1.001-1.035); Urobilinogen,Urine <2.0 mg/dL (<2.0)
--- NOTE | 2024-01-03 12:42 | CT ---
EXAMINATION TYPE: CT brain wo con CT DLP: 1138.3 mGycm, Automated exposure control for dose reduction was used. DATE OF EXAM: 01/03/2024 12:19 PM COMPARISON: 03/14/2021. CLINICAL INDICATION:Male, 83 years old with history of ams, AMS TECHNIQUE: Brain: Axial CT images of the brain were obtained with coronal and sagittal reformats created and rev iewed. Contrast used: None. Oral contrast used: None. FINDINGS: Brain: Extra-axial spaces: No abnormal extra-axial fluid collections. Ventricular system: Dilatation in proportion to cerebral atrophy. Cerebral parenchyma: Encephalomalacia the right parietal region. Mineralization of the basal ganglia. Cerebral atrophy. No acute intraparenchymal hemorrhage or mass effect. The kaur-white junction is w ell differentiated. Scattered hypoattenuating areas are seen within the white matter. Cerebellum: Unremarkable. Mass effect: No evidence of midline shift. Intracranial vasculature: unremarkable Soft tissues: Normal. Calvarium/osseous structures: No depressed skull fracture. Paranasal sinuses and mastoid air cells: Mild scattered paranasal sinus disease. Visualized orbits: Orbital contents are intact. IMPRESSION: No acute intracranial process. Remote injury to the right parietal region.
--- NOTE | 2024-01-03 14:00 | ED ---
General Adult HPI - General Chief complaint: Dizziness Stated complaint: Dizziness Time Seen by Provider: 01/03/24 09:20 Source: patient, EMS Mode of arrival: EMS Limitations: no limitations - History of Present Illness Initial comments: 83-year-old male presents emergency department reporting acute weakness. He was shopping at [employer] when he began to feel weak in the bathroom. His had a worker going to find him leaning up against the bathroom sink. Patient thought he was going to fall and therefore grabbed onto the bathroom sink. He denies falling or hitting his head. States that he got dizzy and felt like he was going to pass out. Upon arrival to the hospital the patient states that his symptoms have completely resolved. He did eat breakfast this morning. Denies any headache or visual changes. No chest pain or difficulty breathing. Denies any lateralizing weakness. No recent illnesses. No recent medication changes. No other alleviating, precipitating or modifying factors - Related Data Home Medications Medication Instructions Recorded Confirmed Doxazosin [Cardura] 1 mg PO HS 05/10/16 01/03/24 Magnesium Oxide [Mag-Ox] 400 mg PO HS 10/31/20 01/03/24 Metoprolol Tartrate [Lopressor] 12.5 mg PO DAILY 10/31/20 01/03/24 Cholecalciferol [Vitamin D3 (25 50 mcg PO W/SUPPER 01/03/24 01/03/24 Mcg = 1000 Iu)] Clopidogrel [Plavix] 75 mg PO DAILY 01/03/24 01/03/24 Pioglitazone HCl/Metformin HCl 1 tab PO DAILY 01/03/24 01/03/24 [Actoplus Met 15 mg-500 mg tab] Vitamin B Complex 1 cap PO W/SUPPER 01/03/24 01/03/24 lisinopriL [Zestril] 10 mg PO DAILY 01/03/24 01/03/24 risperiDONE [RisperDAL] 0.25 mg PO HS 01/03/24 01/03/24 Previous Rx's Medication Instructions Recorded Aspirin 81 mg PO DAILY chew 11/02/20 Atorvastatin [Lipitor] 80 mg PO HS 30 Days #30 tab 11/02/20 Allergies Allergy/AdvReac Type Severity Reaction Status Date / Time tamsulosin [From Flomax] Allergy Rash/Hives Verified 01/03/24 11:24 Review of Systems ROS Statement: Those systems with pertinent positive or pertinent negative responses have been documented in the HPI. ROS Other: All systems not noted in ROS Statement are negative. Past Medical History Past Medical History: Cancer, CVA/TIA, Diabetes Mellitus, Hyperlipidemia, Hypertension, Osteoarthritis (OA), Prostate Disorder Additional Past Medical History / Comment(s): Amaurosis fugax on the right, basal cell carcinoma of the skin, kidney stones, hypertension, hyperlipidemia, diabetes mellitus, currently Dr. baird, stenting of the subclavian artery History of Any Multi-Drug Resistant Organisms: None Reported Past Surgical History: Back Surgery, Cholecystectomy, Orthopedic Surgery Additional Past Surgical History / Comment(s): nicole carpel tunnel,heel spur,basal cell removed from scalp Past Anesthesia/Blood Transfusion Reactions: No Reported Reaction Past Psychological History: Anxiety, Depression Smoking Status: Former smoker Past Alcohol Use History: None Reported Past Drug Use History: None Reported - Past Family History Father History Unknown: Yes Mother Family Medical History: Deep Vein Thrombosis (DVT) General Exam Limitations: no limitations General appearance: alert, in no apparent distress Head exam: Present: atraumatic, normocephalic, normal inspection Eye exam: Present: normal appearance, PERRL, EOMI. Absent: scleral icterus, conjunctival injection, periorbital swelling ENT exam: Present: normal exam, mucous membranes moist Neck exam: Present: normal inspection. Absent: tenderness, meningismus, lymphadenopathy Respiratory exam: Present: normal lung sounds bilaterally. Absent: respiratory distress, wheezes, rales, rhonchi, stridor Cardiovascular Exam: Present: regular rate, normal rhythm, normal heart sounds. Absent: systolic murmur, diastolic murmur, rubs, gallop, clicks GI/Abdominal exam: Present: soft, normal bowel sounds. Absent: distended, tenderness, guarding, rebound, rigid Extremities exam: Present: normal inspection, full ROM, normal capillary refill. Absent: tenderness, pedal edema, joint swelling, calf tenderness Back exam: Present: normal inspection Neurological exam: Present: alert, oriented X3, CN II-XII intact Psychiatric exam: Present: normal affect, normal mood Skin exam: Present: warm, dry, intact, normal color. Absent: rash Course Vital Signs 01/03/24 01/03/24 09:17 14:13 Temperature 97.6 F Pulse Rate 84 70 Respiratory 18 18 Rate Blood Pressure 109/53 122/76 O2 Sat by Pulse 95 98 Oximetry Medical Decision Making - Medical Decision Making Was pt. sent in by a medical professional or institution (, MAGGIE, REGISTERED ACCOUNT ADMINISTRATOR, urgent care, hospital, or retirement...) When possible be specific @ -No Did you speak to anyone other than the patient for history (EMS, parent, family, police, friend...)? What history was obtained from this source @ -Spoke with EMS and for history Did you review nursing and triage notes (agree or disagree)? Why? @ -I reviewed and agree with nursing and triage notes Were old charts reviewed (outside hosp., previous admission, EMS record, old EKG, old radiological studies, urgent care reports/EKG's, retirement records)? Report findings @ -No old charts were reviewed Differential Diagnosis (chest pain, altered mental status, abdominal pain women, abdominal pain men, vaginal bleeding, weakness, fever, dyspnea, syncope, headache, dizziness, GI bleed, back pain, seizure, CVA, palpatations, mental health, musculoskeletal)? @ -Differential Weakness: Hypoglycemia, shock, sepsis, hyponatremia, anemia, infection, CO, ETOH, adverse medicine reaction, overdose, stroke, this is not meant to be an all-inclusive list. EKG interpreted by me (3pts min.). @ -Yes and demonstrates sinus rhythm with a rate of 82. [place] interval 202. QRS of 87. QTc of 397. 1 PVC present. No acute ST segment elevation X-rays interpreted by me (1pt min.). @ -Yes and demonstrates no acute process CT interpreted by me (1pt min.). @ -Yes and demonstrates no acute process U/S interpreted by me (1pt. min.). @ -None done What testing was considered but not performed or refused? (CT, X-rays, U/S, labs)? Why? @ -None What meds were considered but not given or refused? Why? @ -None Did you discuss the management of the patient with other professionals (professionals i.e. MAGGIE Lou, REGISTERED ACCOUNT ADMINISTRATOR, lab, RT, psych nurse, social sciences lecturer, plumbing instructor, teacher, agricultural extension officer, pillowcase folder)? Give summary @ -No Was smoking cessation discussed for >3mins.? @ -No Was critical care preformed (if so, how long)? @ -No Were there social determinants of health that impacted care today? How? (Homelessness, low income, unemployed, alcoholism, drug addiction, transportation, low edu. Level, literacy, decrease access to med. care, half-way, rehab)? @ -No Was there de-escalation of care discussed even if they declined (Discuss DNR or withdrawal of care, Hospice)? DNR status @ -No What co-morbidities impacted this encounter? (DM, HTN, Smoking, COPD, CAD, Cancer, CVA, ARF, Chemo, Hep., AIDS, mental health diagnosis, sleep apnea, morbid obesity)? @ -Dementia Was patient admitted / discharged? Hospital course, mention meds given and route, prescriptions, significant lab abnormalities, going to OR and other pertinent info. @ -Upon arrival patient seen and evaluated in room 18. Thorough history and physical exam was performed. IV is established. Laboratory studies are conducted. Chest x-ray and CT brain are performed. Results are discussed with patient. Did offer overnight observation however patient refused and agreed and wanted to take him home. Patient feels completely back to his baseline at this time. Instructed to follow-up with your primary care doctor an d return for any new or worsening symptoms. Patient discharged in stable condition Undiagnosed new problem with uncertain prognosis? @ -Yes Drug Therapy requiring intensive monitoring for toxicity (Heparin, Nitro, Insulin, Cardizem)? @ -No Were any procedures done? @ -No Diagnosis/symptom? @ -Near syncope, elevated lactic acid Acute, or Chronic, or Acute on Chronic? @ -Acute Uncomplicated (without systemic symptoms) or Complicated (systemic symptoms)? @ -Complicated Side effects of treatment? @ -No Exacerbation, Progression, or Severe Exacerbation? @ -No Poses a threat to life or bodily function? How? (Chest pain, USA, CO, pneumonia, PE, COPD, DKA, ARF, appy, cholecystitis, CVA, Diverticulitis, Homicidal, Suicidal, threat to staff... and all critical care pts) @ -No - Lab Data Result diagrams: 01/03/24 10:11 01/03/24 10:11 Lab Results 01/03/24 01/03/24 01/03/24 Range/Units 10:11 10:11 10:11 WBC 7.9 (3.8-10.6) k/uL RBC 3.58 L (4.30-5.90) m/uL Hgb 12.1 L (13.0-17.5) gm/dL Hct 39.0 (39.0-53.0) % MCV 109.0 H (80.0-100.0) fL MCH 33.7 (25.0-35.0) pg MCHC 30.9 L (31.0-37.0) g/dL RDW 18.4 H (11.5-15.5) % Plt Count 172 (150-450) k/uL MPV 11.0 Neutrophils % 73 % Lymphocytes % 17 % Monocytes % 6 % Eosinophils % 1 % Basophils % 1 % Neutrophils # 5.8 (1.3-7.7) k/uL Lymphocytes # 1.3 (1.0-4.8) k/uL Monocytes # 0.5 (0-1.0) k/uL Eosinophils # 0.1 (0-0.7) k/uL Basophils # 0.1 (0-0.2) k/uL Manual Slide Review Performed Hypochromasia Slight Anisocytosis Slight Macrocytosis Marked A PT 10.7 (10.0-12.5) sec INR 1.0 (<1.2) APTT 23.2 (22.0-30.0) sec Sodium 139 (137-145) mmol/L Potassium 4.6 (3.5-5.1) mmol/L Chloride 110 H (98-107) mmol/L Carbon Dioxide 19 L (22-30) mmol/L Anion Gap 10 mmol/L BUN 29 H (9-20) mg/dL Creatinine 1.41 H (0.66-1.25) mg/dL Est GFR (CKD-EPI)AfAm 53 (>60 ml/min/1.73 sqM) Est GFR (CKD-EPI)NonAf 46 (>60 ml/min/1.73 sqM) Glucose 144 H (74-99) mg/dL Lactic Ac Sepsis Rflx Plasma Lactic Acid Delgado (0.7-2.0) mmol/L Calcium 8.9 (8.4-10.2) mg/dL Total Bilirubin 0.7 (0.2-1.3) mg/dL AST 31 (17-59) U/L ALT 28 (4-49) U/L Alkaline Phosphatase 46 (38-126) U/L Creatine Kinase (55-170) U/L Troponin I (0.000-0.034) ng/mL Total Protein 6.0 L (6.3-8.2) g/dL Albumin 3.5 (3.5-5.0) g/dL Urine Color Urine Appearance (Clear) Urine pH (5.0-8.0) Ur Specific [place] (1.001-1.035) Urine Protein (Negative) Urine Glucose (UA) (Negative) Urine Ketones (Negative) Urine Blood (Negative) Urine Nitrite (Negative) Urine Bilirubin (Negative) Urine Urobilinogen (<2.0) mg/dL Ur Leukocyte Esterase (Negative) 01/03/24 01/03/24 01/03/24 Range/Units 10:11 10:11 10:11 WBC (3.8-10.6) k/uL RBC (4.30-5.90) m/uL Hgb (13.0-17.5) gm/dL Hct (39.0-53.0) % MCV (80.0-100.0) fL MCH (25.0-35.0) pg MCHC (31.0-37.0) g/dL RDW (11.5-15.5) % Plt Count (150-450) k/uL MPV Neutrophils % % Lymphocytes % % Monocytes % % Eosinophils % % Basophils % % Neutrophils # (1.3-7.7) k/uL Lymphocytes # (1.0-4.8) k/uL Monocytes # (0-1.0) k/uL Eosinophils # (0-0.7) k/uL Basophils # (0-0.2) k/uL Manual Slide Review Hypochromasia Anisocytosis Macrocytosis PT (10.0-12.5) sec INR (<1.2) APTT (22.0-30.0) sec Sodium (137-145) mmol/L Potassium (3.5-5.1) mmol/L Chloride (98-107) mmol/L Carbon Dioxide (22-30) mmol/L Anion Gap mmol/L BUN (9-20) mg/dL Creatinine (0.66-1.25) mg/dL Est GFR (CKD-EPI)AfAm (>60 ml/min/1.73 sqM) Est GFR (CKD-EPI)NonAf (>60 ml/min/1.73 sqM) Glucose (74-99) mg/dL Lactic Ac Sepsis Rflx Plasma Lactic Acid Delgado 5.8 H* (0.7-2.0) mmol/L Calcium (8.4-10.2) mg/dL Total Bilirubin (0.2-1.3) mg/dL AST (17-59) U/L ALT (4-49) U/L Alkaline Phosphatase (38-126) U/L Creatine Kinase (55-170) U/L Troponin I 0.013 (0.000-0.034) ng/mL Total Protein (6.3-8.2) g/dL Albumin (3.5-5.0) g/dL Urine Color Light Yellow Urine Appearance Clear (Clear) Urine pH 5.0 (5.0-8.0) Ur Specific [place] 1.016 (1.001-1.035) Urine Protein Trace H (Negative) Urine Glucose (UA) Negative (Negative) Urine Ketones Negative (Negative) Urine Blood Negative (Negative) Urine Nitrite Negative (Negative) Urine Bilirubin Negative (Negative) Urine Urobilinogen <2.0 (<2.0) mg/dL Ur Leukocyte Esterase Negative (Negative) 01/03/24 01/03/24 01/03/24 Range/Units 10:11 10:50 13:20 WBC (3.8-10.6) k/uL RBC (4.30-5.90) m/uL Hgb (13.0-17.5) gm/dL Hct (39.0-53.0) % MCV (80.0-100.0) fL MCH (25.0-35.0) pg MCHC (31.0-37.0) g/dL RDW (11.5-15.5) % Plt Count (150-450) k/uL MPV Neutrophils % % Lymphocytes % % Monocytes % % Eosinophils % % Basophils % % Neutrophils # (1.3-7.7) k/uL Lymphocytes # (1.0-4.8) k/uL Monocytes # (0-1.0) k/uL Eosinophils # (0-0.7) k/uL Basophils # (0-0.2) k/uL Manual Slide Review Hypochromasia Anisocytosis Macrocytosis PT (10.0-12.5) sec INR (<1.2) APTT (22.0-30.0) sec Sodium (137-145) mmol/L Potassium (3.5-5.1) mmol/L Chloride (98-107) mmol/L Carbon Dioxide (22-30) mmol/L Anion Gap mmol/L BUN (9-20) mg/dL Creatinine (0.66-1.25) mg/dL Est GFR (CKD-EPI)AfAm (>60 ml/min/1.73 sqM) Est GFR (CKD-EPI)NonAf (>60 ml/min/1.73 sqM) Glucose (74-99) mg/dL Lactic Ac Sepsis Rflx Y Plasma Lactic Acid Delgado 1.1 (0.7-2.0) mmol/L Calcium (8.4-10.2) mg/dL Total Bilirubin (0.2-1.3) mg/dL AST (17-59) U/L ALT (4-49) U/L Alkaline Phosphatase (38-126) U/L Creatine Kinase 73 (55-170) U/L Troponin I (0.000-0.034) ng/mL Total Protein (6.3-8.2) g/dL Albumin (3.5-5.0) g/dL Urine Color Urine Appearance (Clear) Urine pH (5.0-8.0) Ur Specific [place] (1.001-1.035) Urine Protein (Negative) Urine Glucose (UA) (Negative) Urine Ketones (Negative) Urine Blood (Negative) Urine Nitrite (Negative) Urine Bilirubin (Negative) Urine Urobilinogen (<2.0) mg/dL Ur Leukocyte Esterase (Negative) Disposition Clinical Impression: Lactic acidosis, Near syncope Disposition: HOME SELF-CARE Condition: Stable Instructions (If sedation given, give patient instructions): Near Syncope (ED) Additional Instructions: Please follow-up with your primary care doctor for reevaluation. Return for any new or worsening symptoms Is patient prescribed a controlled substance at d/c from ED?: No Referrals: Dayana Holguin MD [Primary Care Provider] - 1-2 days Time of Disposition: 14:02
[2024-01-03 15:05] VITALS: BP 122/76; PULSE 70
== END 2024-01-03 14:14 | disposition home or self-care (01) ==
LOC: EC 09:10
DX: E87.20 Acidosis, unspecified (principal); F03.90 Unspecified dementia, unspecified severity, without behavioral disturbance, psychotic disturbance, mood disturbance, and anxiety; R55 Syncope and collapse; Z88.8 Allergy status to other drugs, medicaments and biological substances; Z87.891 Personal history of nicotine dependence; Z86.73 Personal history of transient ischemic attack (TIA), and cerebral infarction without residual deficits
CPT/HCPCS: 36415; 70450; 71046; 80053; 81003; 82550; 83605; 84484; 85025; 85610; 85730; 93005; 96360; 96361; 99285

== ENCOUNTER → 2024-02-05 | Outpatient (CLI) | payer MEDICARE ==
--- NOTE | 2024-02-05 09:58 | MR ---
EXAMINATION TYPE: MR brain wo/w con DATE OF EXAM: 02/05/2024 8:26 AM COMPARISON: March 14, 2021 HISTORY: Visual field defect, r occipital CVA CONTRAST: Patient received 9 mL intravenous Gadavist gadolinium contrast. Multiplanar and multispin-echo imaging of the brain was performed . Pre and post contrast enhanced i mages are obtained. The ventricles, basal cisterns and sulci overlying the cerebral convexities are mildly enlarged. Rem ote insult posterior right parietal lobe and adjacent to the left ventricular atrium. There is eviden ce of mild periventricular white matter ischemic demyelination. Remote deep white matter insults are also noted. No acute edema is seen on diffusion weighted imaging. There is no evidence for midline shift or mass effect. Acute intracranial hemorrhage or extra-axial collection is not evident. No enhancing lesions are seen. The paranasal sinuses and mastoid air cells are well-aerated. IMPRESSION: Age-related atrophic and chronic small vessel ischemic change. No acute intracranial process at this time. No enhancing lesions are seen.
== END | disposition home or self-care (01) ==
LOC: RADMRIMAIN 07:33
PROVIDERS: ATTEND Ophthalmology
DX: H53.40 Unspecified visual field defects (principal); I67.82 Cerebral ischemia
CPT/HCPCS: 70553; A9585